=== PATIENT | female | born 1955 | race Caucasian/White ===

== ENCOUNTER 2017-12-04 12:19 | Inpatient (IN) | payer BC ==
[2017-12-04 13:00] LABS: Protime INR 1.25
[2017-12-04 13:02] LABS: Absolute Lymphocytes (CBC) 0.6 K/uL (0.7-4.9); Absolute Monocytes 0.1 K/uL (0.1-1.3); Absolute Neutrophil 0.9 K/uL (1.8-8.0); Basophils % 2.1 % (0-1.3); Eosinophils % 0.8 % (0-4.4); Hematocrit 14.1 % (36.0-45.0); Lymphocytes % 39.9 % (15.3-44.8); MCH 30.4 pg (27.0-35.0); MCV 86.1 fL (80-100); Monocytes % 4.2 % (3.3-12.3); RBC Red Blood Cell Count 1.64 M/uL (3.86-4.86)
[2017-12-04 13:19] LABS: ALT/SGPT 25 U/L (12-78); AST/SGOT 25 U/L (15-37); Albumin 3.6 g/dL (3.4-5.0); Alkaline Phosphatase 608 U/L (45-117); BUN Blood Urea Nitrogen 20 mg/dL (7-18); Bicarbonate 22 mmol/L (21-32); Bilirubin Total 3.7 mg/dL (0.2-1.0); Glucose Level 130 mg/dL (74-106); Magnesium 2.2 mg/dL (1.8-2.4); NT PRO-BNP 97 pg/mL (<125); Potassium 4.1 mmol/L (3.5-5.1); Protein, Total 7.1 g/dL (6.4-8.2); Sodium Level 141 mmol/L (136-145); Troponin (Emerg Dept Use Only) < 0.02 ng/mL (0.0-0.045)
[2017-12-04 14:00] LABS: Anisocytosis 1+; Blood Morphology Comment NOTED (NOT SEEN); Platelet Estimate DECR
[2017-12-04] MEDS ORDERED: CEFEPIME/SWI 2gm 2 GM/20 ML SYR IV ONE (14:00)
[2017-12-04 14:01] LABS: Polychromasia 1+; Teardrop Cell 1+
--- NOTE | 2017-12-04 14:01 | EDPHYS ---
Physician Documentation [facility] Name: Esther Nichole Age: 62 yrs Sex: Female : 1955 Arrival Date: 12/04/2017 Time: 12:16 Bed 4 Private MD: ED Physician Peyman Yates HPI: 12/04 13:39 This 62 yrs old Female presents to ER via EMS with complaints of Syncope. kaykay 13:39 The patient has experienced near-syncope, almost passed out, felt faint, felt generally kaykay weak. Onset: The symptoms/episode began/occurred just prior to arrival. Context: the episode(s) was witnessed, by family, occurred at home, occurred while the patient was standing. Associated injury: The patient did not suffer any apparent associated injury. Associated signs and symptoms: Pertinent positives: lightheadedness. The patient has experienced similar episodes in the past, a few times. Historical: - Allergies: 12:22 No Known Allergies; sv - Home Meds: 12:22 letrozole 2.5 mg oral tab 1 tab once daily [Active]; morphine ER [Active]; sv Hydrocodone-Acetaminophen Oral [Active]; Zofran Oral [Active]; Metoclopramide Oral [Active]; lorazepam 1 mg Oral tab [Active]; Ibrance 125 mg oral cap 1 cap once daily [Active]; Senexon 8.6 mg oral tab 2 tabs once daily [Active]; venlafaxine 37.5 mg oral tab [Active]; - PMHx: 12:22 St 4 metastatic right breast cancer; Neurofibromatosis; sv - PSHx: 12:22 Right mastectomy; Cholecystectomy; esophageal; sv - Immunization history:: Adult Immunizations up to date. - Social history:: Smoking status: Patient/guardian denies using tobacco. - Ebola Screening: : No symptoms or risks identified at this time. - Family history:: not pertinent. ROS: 13:39 Constitutional: Negative for fever, chills, and weight loss, ENT: Negative for injury, kaykay pain, and discharge, Neck: Negative for injury, pain, and swelling, Cardiovascular: Negative for chest pain, palpitations, and edema, Respiratory: Negative for shortness of breath, cough, wheezing, and pleuritic chest pain, Abdomen/GI: Negative for abdominal pain, nausea, vomiting, diarrhea, and constipation, Back: Negative for injury and pain, : Negative for injury, bleeding, discharge, and swelling, MS/Extremity: Negative for injury and deformity, Neuro: Negative for headache, weakness, numbness, tingling, and seizure, Psych: Negative for depression, anxiety, suicide ideation, homicidal ideation, and hallucinations, Allergy/Immunology: Negative for hives, rash, and allergies, Endocrine: Negative for neck swelling, polydipsia, polyuria, polyphagia, and marked weight changes, Hematologic/Lymphatic: Negative for swollen nodes, abnormal bleeding, and unusual bruising. 13:39 Eyes: Positive for sunken appearance. 13:39 Skin: Positive for pallor. Exam: 13:39 Constitutional: This is a well developed, well nourished patient who is awake, alert, kaykay and in no acute distress. Head/Face: Normocephalic, atraumatic. ENT: Nares patent. No nasal discharge, no septal abnormalities noted. Tympanic membranes are normal and external auditory canals are clear. Oropharynx with no redness, swelling, or masses, exudates, or evidence of obstruction, uvula midline. Mucous membranes moist. Neck: Trachea midline, no thyromegaly or masses palpated, and no cervical lymphadenopathy. Supple, full range of motion without nuchal rigidity, or vertebral point tenderness. No Meningismus. Chest/axilla: Normal chest wall appearance and motion. Nontender with no deformity. No lesions are appreciated. Cardiovascular: Regular rate and rhythm with a normal S1 and S2. No gallops, murmurs, or rubs. Normal PMI, no JVD. No pulse deficits. Respiratory: Lungs have equal breath sounds bilaterally, clear to auscultation and percussion. No rales, rhonchi or wheezes noted. No increased work of breathing, no retractions or nasal flaring. Abdomen/GI: Soft, non-tender, with normal bowel sounds. No distension or tympany. No guarding or rebound. No evidence of tenderness throughout. Back: No spinal tenderness. No costovertebral tenderness. Full range of motion. Female : Normal external genitalia. MS/ Extremity: Pulses equal, no cyanosis. Neurovascular intact. Full, normal range of motion. Neuro: Awake and alert, GCS 15, oriented to person, place, time, and situation. Cranial nerves II-XII grossly intact. Motor strength 5/5 in all extremities. Sensory grossly intact. Cerebellar exam normal. Normal gait. Psych: Awake, alert, with orientation to person, place and time. Behavior, mood, and affect are within normal limits. 13:39 Eyes: Conjunctiva: pale, bilaterally. 13:39 Skin: Appearance: Color: pale, Temperature: normal temperature, Moisture: normal moisture, petechiae, not noted, ecchymosis, not noted, flushing, not noted. 13:46 Abdomen/GI: Inspection: abdomen appears normal, Bowel sounds: normal, Palpation: [facility] abdomen is soft and non-tender, Rectal exam: is unremarkable, rectal tone normal, Stool: guaiac negative, hemorrhoid(s), are not appreciated, mass, is not appreciated, swelling, is not appreciated, tenderness, is not appreciated, fecal impaction, is not appreciated. Vital Signs: 12:22 BP 131 / 71; Pulse 78; Resp 16; Temp 97; Pulse Ox 99% ; Weight 79.38 kg; Height 5 ft. 3 sv in. (160.02 cm); Pain 0/10; 13:04 BP 116 / 73; Pulse 72; Resp 16; Pulse Ox 100% on R/A; sv 13:58 BP 129 / 79; Pulse 76; Resp 20; Pulse Ox 100% ; sv 15:05 BP 125 / 80; Pulse 79; Resp 22; Pulse Ox 10% ; sv 15:52 BP 128 / 80; Pulse 79; Resp 19; Pulse Ox 100% ; sv 16:44 BP 128 / 84; Pulse 80; Resp 18; Temp 98.4(O); Pulse Ox 100% ; Pain 0/10; em1 17:21 BP 129 / 83; Pulse 82; Resp 18; Pulse Ox 100% ; sv 12:22 Body Mass Index 31.00 (79.38 kg, 160.02 cm) sv MDM: 12:42 Patient medically screened. [facility] 13:46 Data reviewed: vital signs, nurses notes, lab test result(s), EKG, radiologic studies, [facility] scan, plain films. 12/04 12:26 Order name: Basic Metabolic Panel; Complete Time: 13:37 sv 12/04 12:26 Order name: CBC with Diff; Complete Time: 15:40 12/04 12:26 Order name: LFT's; Complete Time: 13:37 sv 12/04 12:26 Order name: Magnesium; Complete Time: 13:37 sv 12/04 12:26 Order name: NT PRO-BNP; Complete Time: 13:37 sv 12/04 12:26 Order name: PT-INR; Complete Time: 13:37 sv 12/04 12:26 Order name: Troponin (emerg Dept Use Only); Complete Time: 13:37 sv 12/04 12:41 Order name: Type And Screen sv 12/04 12:44 Order name: Glucose, Ancillary Testing; Complete Time: 13:37 EDMO 12/04 13:16 Order name: ABO/RH no charge; Complete Time: 13:37 EDMO 12/04 13:36 Order name: Blood Culture Adult (2) [facility] 12/04 13:36 Order name: Lipase kaykay 12/04 13:36 Order name: Blood Culture EDMO 12/04 12:26 Order name: XRAY Chest (1 view) 12/04 12:26 Order name: EKG; Complete Time: 12:27 sv 12/04 12:26 Order name: Cardiac monitoring; Complete Time: 12:58 sv 12/04 12:26 Order name: EKG - Nurse/Tech; Complete Time: 12:58 sv 12/04 12:26 Order name: IV Saline Lock; Complete Time: 12:57 sv 12/04 12:26 Order name: Labs collected and sent; Complete Time: 12:58 sv 12/04 12:26 Order name: O2 Per Protocol; Complete Time: 12:58 sv 12/04 12:26 Order name: O2 Sat Monitoring; Complete Time: 12:58 sv 12/04 12:26 Order name: CT Head Brain wo Cont 12/04 13:39 Order name: Antibody Identification EDMO 12/04 13:48 Order name: Guiac eb 12/04 14:00 Order name: Manual Differential; Complete Time: 15:40 EDMO 12/04 14:04 Order name: CONS Physician Consult EDMO Administered Medications: 14:17 Drug: ProTONIX 40 mg Route: IVP; Site: left antecubital; sv 14:24 Follow up: Response: No adverse reaction sv 14:19 Drug: Cefepime 2 grams Route: IVPB; Rate: 200 ml/hr; Infused Over: 30 mins; Site: left sv antecubital; 14:24 Follow up: Response: No adverse reaction; IV Status: Completed infusion; IV Intake: sv 20ml ; given IVP per pharmacy instructions Point of Care Testing: Blood Glucose: 12:40 Blood Glucose: 139 mg/dL; sv Guaiac: 13:57 Stool Guaiac: Negative; Stool Hemoccult Control: Pass; sv 13:[address] Milan norris Ranges: Critical Glucose Levels:Adult <50 mg/dl or >400 mg/dl <40 mg/dl or >180 mg/dl Disposition: 12/04/17 14:01 Hospitalization ordered by Roosevelt Flaherty for Inpatient Admission. Preliminary diagnosis are Syncope and collapse, Pancytopenia. - Bed requested for Telemetry/MedSurg (Inpatient). - Status is Inpatient Admission. sv - Condition is Stable. - Problem is new. - Symptoms have improved. UTI on Admission? No Signatures: Dispatcher [employer] [facility] Halle Pineda RN RN sv Anderson, Corey, MD MD cha Fitzgerald, Diane, RN RN df Corrections: (The following items were deleted from the chart) 14:00 13:10 CBC Smear Scan ordered. [facility] 16:52 14:01 Hospitalization Ordered by Roosevelt Flaherty DO for Inpatient Admission. Preliminary df diagnosis is Syncope and collapse; Pancytopenia. Bed requested for Telemetry/MedSurg (Inpatient). Status is Inpatient Admission. Condition is Stable. Problem is new. Symptoms have improved. UTI on Admission? No. [facility] 17:21 16:52 12/04/2017 14:01 Hospitalization Ordered by Roosevelt Flaherty DO for Inpatient sv Admission. Preliminary diagnosis is Syncope and collapse; Pancytopenia. Bed requested for Telemetry/MedSurg (Inpatient). Status is Inpatient Admission. Condition is Stable. Problem is new. Symptoms have improved. UTI on Admission? No. df
--- NOTE | 2017-12-04 14:01 | ER ---
Nurse's Notes [facility] Name: Esther Nichole Age: 62 yrs Sex: Female : 1955 Arrival Date: 12/04/2017 Time: 12:16 Bed 4 Private MD: Diagnosis: Syncope and collapse;Pancytopenia Presentation: 12/04 12:09 Presenting complaint: EMS states: syncopal episode while going back to bed, on site was sv c/o right shoulder pain. + LOC. Pt was pale and diaphoretic on scene, SBP 80s, placed in Trendelenburg, NS 400 mls bolus given, 100% RA, HR-60. 22G L AC. Pt stopped chemotherapy for St 4 metastatic right breast cancer yesterday and had recently received 2 units of blood at [facility]. Transition of care: patient was not received from another setting of care. Onset of symptoms was December 04, 2017. Risk Assessment: Do you want to hurt yourself or someone else? Patient reports no desire to harm self or others. Initial Sepsis Screen: Does the patient meet any 2 criteria? No. Patient's initial sepsis screen is negative. Does the patient have a suspected source of infection? No. Patient's initial sepsis screen is negative. Care prior to arrival: IV initiated. 22 GA, in the left antecubital area. 12:09 Method Of Arrival: EMS: [facility] sv 12:09 Acuity: KAMILAH 2 sv Triage Assessment: 12:10 General: Appears in no apparent distress. comfortable, Behavior is calm, cooperative, sv appropriate for age. Pain: Denies pain. EENT: No signs and/or symptoms were reported regarding the EENT system. Neuro: Level of Consciousness is awake, alert, obeys commands, Oriented to person, place, time, situation, Moves all extremities. Full function Speech is normal, Reports a syncopal episode. Cardiovascular: Patient's skin is warm and dry. Pulses are 3+ in right radial artery and left radial artery Rhythm is sinus rhythm. Respiratory: Respiratory effort is even, unlabored, Respiratory pattern is regular, symmetrical. Derm: Skin is pale, Skin temperature is cool. Historical: - Allergies: 12:22 No Known Allergies; sv - Home Meds: 12:22 letrozole 2.5 mg oral tab 1 tab once daily [Active]; morphine ER [Active]; sv Hydrocodone-Acetaminophen Oral [Active]; Zofran Oral [Active]; Metoclopramide Oral [Active]; lorazepam 1 mg Oral tab [Active]; Ibrance 125 mg oral cap 1 cap once daily [Active]; Senexon 8.6 mg oral tab 2 tabs once daily [Active]; venlafaxine 37.5 mg oral tab [Active]; - PMHx: 12:22 St 4 metastatic right breast cancer; Neurofibromatosis; sv - PSHx: 12:22 Right mastectomy; Cholecystectomy; esophageal; sv - Immunization history:: Adult Immunizations up to date. - Social history:: Smoking status: Patient/guardian denies using tobacco. - Ebola Screening: : No symptoms or risks identified at this time. - Family history:: not pertinent. Screenin:24 Abuse screen: Denies threats or abuse. Denies injuries from another. Nutritional sv screening: No deficits noted. Tuberculosis screening: No symptoms or risk factors identified. Fall Risk No fall in past 12 months (0 pts). No secondary diagnosis (0 pts). IV access (20 points). Ambulatory Aid- None/Bed Rest/Nurse Assist (0 pts). Gait- Normal/Bed Rest/Wheelchair (0 pts) Mental Status- Oriented to own ability (0 pts). Total Liz[place]aga Fall Scale indicates No Risk (0-24 pts). Assessment: 12:56 Reassessment: Patient appears in no apparent distress at this time. No changes from sv previously documented assessment. Patient and/or family updated on plan of care and expected duration. Pain level reassessed. 14:17 Reassessment: Patient appears in no apparent distress at this time. No changes from sv previously documented assessment. Patient and/or family updated on plan of care and expected duration. Pain level reassessed. 15:49 Reassessment: Patient appears in no apparent distress at this time. No changes from sv previously documented assessment. Patient and/or family updated on plan of care and expected duration. Pain level reassessed. Blood band working on PRBCs for the patient. 17:10 Reassessment: Patient appears in no apparent distress at this time. No changes from sv previously documented assessment. Patient and/or family updated on plan of care and expected duration. Pain level reassessed. Vital Signs: 12:22 BP 131 / 71; Pulse 78; Resp 16; Temp 97; Pulse Ox 99% ; Weight 79.38 kg; Height 5 ft. 3 sv in. (160.02 cm); Pain 0/10; 13:04 BP 116 / 73; Pulse 72; Resp 16; Pulse Ox 100% on R/A; sv 13:58 BP 129 / 79; Pulse 76; Resp 20; Pulse Ox 100% ; sv 15:05 BP 125 / 80; Pulse 79; Resp 22; Pulse Ox 10% ; sv 15:52 BP 128 / 80; Pulse 79; Resp 19; Pulse Ox 100% ; sv 16:44 BP 128 / 84; Pulse 80; Resp 18; Temp 98.4(O); Pulse Ox 100% ; Pain 0/10; em1 17:21 BP 129 / 83; Pulse 82; Resp 18; Pulse Ox 100% ; sv 12:22 Body Mass Index 31.00 (79.38 kg, 160.02 cm) sv ED Course: 12:09 Maintain EMS IV. Dressing intact. Gauge \T\ site: 22G L AC. sv 12:10 Patient has correct armband on for positive identification. Placed in gown. Bed in low sv position. Side rails up X2. vehicle monitor technician on. Pulse ox on. NIBP on. Door closed. Warm blanket given. Head of bed elevated. 12:16 Patient arrived in ED. sv 12:19 Triage completed. sv 12:25 Halle Pineda, RN is Primary Nurse. sv 12:40 Initial lab(s) drawn, by ar, sent to lab. Inserted saline lock: 20 gauge in left upper sv arm, using aseptic technique. Blood collected. Flushed left with 5 ml normal saline upper arm. 12:42 Peyman Yates MD is Attending Physician. kaykay 12:45 Arm band placed on left wrist. sv 12:46 CT completed. Patient tolerated procedure well. Patient moved back from CT. [email or web address] 12:47 CT Head Brain wo Cont In Process Unspecified. EDMS 12:57 Awaiting lab results, Awaiting radiology results. Awaiting ED provider evaluation. sv 13:12 XRAY Chest (1 view) In Process Unspecified. EDMS 13:15 Notified ED physician of a critical lab result(s). WBC 1.6, Hbg 5, Hematocrit 14.1, Plt sg 47. 13:40 attempted to initiate a transfer with Corina from the [place] transfer center. Per Corina she will eb email her oncology team but that the hospital is on diversion and will not know when a bed will become available/. 13:57 Blood Culture Adult (2) Sent. sv 13:57 Consent for blood and/or blood product transfusion explained by staff, explained by physician, signed by patient. 14:00 Roosevelt Flaherty DO is Hospitalizing Provider. kaykay 17:12 No provider procedures requiring assistance completed. Patient admitted, IV remains in sv place. intact. Administered Medications: 14:17 Drug: ProTONIX 40 mg Route: IVP; Site: left antecubital; sv 14:24 Follow up: Response: No adverse reaction sv 14:19 Drug: Cefepime 2 grams Route: IVPB; Rate: 200 ml/hr; Infused Over: 30 mins; Site: left sv antecubital; 14:24 Follow up: Response: No adverse reaction; IV Status: Completed infusion; IV Intake: sv 20ml ; given IVP per pharmacy instructions Point of Care Testing: Blood Glucose: 12:40 Blood Glucose: 139 mg/dL; sv Guaiac: 13:57 Stool Guaiac: Negative; Stool Hemoccult Control: Pass; sv 13:[address] Yates sv Ranges: Intake: 14:24 IV: 20ml; Total: 20ml. sv Outcome: 14:01 Decision to Hospitalize by Provider. kaykay 17:12 Admitted to Tele accompanied by tech, family with patient, via stretcher, room 414, sv with chart, Report called to Yulia PEREZ 17:12 Condition: stable 17:12 Instructed on the need for admit. 17:21 Patient left the ED. sv Signatures: Dispatcher [employer] Halle Bills, Arun Choudhury RN, Peyman Perez RN, MD MD cha Martinez, Brent em1 Aide Antonio, Jes [id number] Corrections: (The following items were deleted from the chart) 12:23 12:09 Presenting complaint: EMS states: syncopal episode while going back to bed. + sv LOC. Pt was pale and diaphoretic on scene, SBP 80s, placed in Trendelenburg, NS 400 mls bolus given, 100% RA, HR-60. 22G L AC. Pt stopped chemotherapy for St 4 metastatic right breast cancer yesterday. sv 13:21 12:09 Maintain EMS IV. Dressing intact. Gauge \T\ site: 20G L AC. sv sv
[2017-12-04] MEDS ORDERED: PANTOPRAZOLE 40 MG INJ ONE (14:02)
[2017-12-04] MEDS ORDERED: ACETAMINOPHEN 500 MG TAB PO PRN (14:27)
[2017-12-04] MEDS ORDERED: HYDROCODONE/APAP 10/325 TAB PO PRN (14:27)
--- NOTE | 2017-12-04 14:40 | P.HP ---
Certification for Inpatient Patient admitted to: Inpatient With expected LOS: >2 Midnights Patient will require the following post-hospital care: None Practitioner: I am a practitioner with admitting privileges, knowledge of patient current condition, hospital course, and medical plan of care. Services: Services provided to patient in accordance with Admission requirements found in Title 42 Section 412.3 of the Code of Federal Regulations Patient History Date of Service: 12/04/17 Primary Care Provider: None; Oncology-Dr. Juarez([facility]) Reason for admission: Syncope History of Present Illness: 62 yo CF presented to the ER with Syncope. Patient presented with syncope. She was found to have low BP with 80 sys. She has stage 4 recurrent breast cancer with mets to the spine, lung, abdomen and skull. She also has Neurofibromatosis. She is getting her care at [facility]. She recently started oral chemotherapy about 3 weeks ago. She just finished oral therapy on Wednesday. Last week, she required 2 units of blood at [facility]. She denies any bleeding or fever. No chest pain, SOB, abdominal pain. She is taking medication for pain and anxiety. In the ER she was found to have pancytopenia. Hemoglobin of 5.0, WBC-1.9 and Platelet of 47. BMP unremarkable. TB-3.7. The ER tried to transfer the patient to [facility] with her physician but they were full. I was asked to admit and treat the patient. When I saw the patient in the ER she was stable. Her BP was much improved after a bolus of fluid. No complaints noted. 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 She is . - Family History Father -: Cancer Brother -: Cancer - Social History Smoking Status: Never smoker Alcohol use: No CD- Drugs: No Caffeine use: Yes Place of Residence: Home Review of Systems General: Weakness, As per HPI Eyes: Unremarkable ENT: Unremarkable Respiratory: Unremarkable Cardiovascular: Light Headedness, As per HPI Gastrointestinal: Unremarkable Genitourinary: Unremarkable Musculoskeletal: Unremarkable Integumentary: Unremarkable Neurological: Unremarkable Lymphatics: Unremarkable Physical Examination - Physical Exam General: Alert, In no apparent distress, Oriented x3, Cooperative HEENT: Atraumatic, Other (dry mucous membranes) Neck: Supple, No Thyromegaly, Other (Neurofibromatosis changes to the skin and neck) Respiratory: Clear to auscultation bilaterally, Normal air movement Cardiovascular: Normal pulses, Regular rate/rhythm Gastrointestinal: Normal bowel sounds, Soft and benign, No tenderness, No masses , No rebound Musculoskeletal: No warmth Integumentary: Other (Neurofibromatosis changes to the body. right breast mastectomy noted. ) Neurological: Normal speech, Normal strength at 5/5 x4 extr, Normal tone, Normal affect - Studies Laboratory Data (last 24 hrs) 12/04/17 12:40: PT 14.8 H, INR 1.25 12/04/17 12:40: WBC 1.6 L*, Hgb 5.0 L*, Hct 14.1 L*, Plt Count 47 L* 12/04/17 12:40: Sodium 141, Potassium 4.1, BUN 20 H, Creatinine 0.70, Glucose 130 H, Magnesium 2.2, Total Bilirubin 3.7 H, AST 25, ALT 25, Alkaline Phosphatase 608 H Assessment and Plan - Plan Impression: Syncope secondary to Pancytopenia related to Oral Chemotherapy Stage 4 recurrent Breast Cancer with Metastasis to the Skull, Lung, Abdomen, and Spine Chronic pain secondary to Breast cancer Anxiety Plan: Spoke to Oncology concerning the patient. Will need to transfuse the patient 2 units of blood. Will keep Hemoglobin above 7.0. Will start Granix daily. Will recheck lab tomorrow. Will have PT assess ambulation tomorrow. No need for platelet transfusion or antibiotics at this time. No bleeding or fever noted. Will monitor lab and condition closely. Will keep at bedrest today. Will reassess tomorrow. Plan to discharge once H/H stable and WBC improved. Will discuss with Oncology tomorrow. Will continue to HOLD Ibrance, her oral chemotherapy. Will provide medication for pain, anxiety and nausea. Discharge Plan: Home Plan to discharge in: 48 Hours - Advance Directives Does patient have a Living Will: No Does patient have a Durable POA for Healthcare: No - Code Status/Comfort Care Code Status Assessed: Yes (Patient is full code. ) Time Spent Managing Pts Care (In Minutes): 55
[2017-12-04] MEDS: NA CHLORIDE 0.9% 1,000 ML IV SCH (15:00)
[2017-12-04] MEDS: TBO-FILGRASTIM 480 MCG/0.8 ML SYR SQ SCH (16:15)
[2017-12-04] MEDS: METOCLOPRAMIDE 10 MG/2mL INJ IV PRN (20:42)
[2017-12-04] MEDS: MORPHINE 15 MG IR TAB PO SCH (20:43)
[2017-12-04] MEDS: LORAZEPAM 0.5 MG TABLET PO PRN (20:45)
[2017-12-04] MEDS: VENLAFAXINE HCL 37.5 MG TAB PO SCH (21:00)
[2017-12-05] MEDS: MORPHINE 15 MG IR TAB PO SCH ×3 (00:02→22:21)
[2017-12-05] MEDS ORDERED: FUROSEMIDE 40 MG/4 ML VIAL IV ONE ×2 (01:25→05:05)
[2017-12-05] MEDS: ONDANSETRON 4 MG/2 ML VIAL IV PRN ×2 (02:28→16:27)
[2017-12-05] MEDS: PANTOPRAZOLE 40MG TABLET PO SCH (06:05)
--- NOTE | 2017-12-05 08:32 | RAD REPORT ---
EXAM DESCRIPTION: RAD - Chest Single View - 12/04/2017 11:29 pm CLINICAL HISTORY: Fall The final report was delayed due to PACs and/or Fluency technical problems that existed at the time of the study or during expected/usual dictation time period. It is unknown if a verbal report was pro vided prior to this dictation. COMPARISON: None. TECHNIQUE: AP portable chest image was obtained 1303 hours . FINDINGS: Lung volumes are slightly diminished. Right base opacification is present obscuring the ri ght heart border. No comparison is available. Right middle lobe atelectasis or infiltrate suspected. No additional findings to suspect right hilar mass. This could be a prominent pericardial fat pad. No failure or volume overload. Heart and vasculature are normal. No measurable pleural effusion and no pneumothorax. No gross bony abnormality seen. No acute aortic findings suspected. IMPRESSION: No failure or volume overload. No traumatic injury to the chest identified. Medial right base opacification suspected to be right middle lobe atelectasis or infiltrate. Followup two view imaging could be obtained for further assessment. A short-term 3- 4 week follow-up could be also obtained to monitor for resolution.
[2017-12-05 08:35] LABS: Magnesium 2.2 mg/dL (1.8-2.4); Potassium 3.9 mmol/L (3.5-5.1)
[2017-12-05 08:49] LABS: Hematocrit 24.3 % (36.0-45.0); MCH 28.6 pg (27.0-35.0); MCV 80.2 fL (80-100); MPV 8.7 fL (7.6-11.3); RBC Red Blood Cell Count 3.03 M/uL (3.86-4.86)
[2017-12-05] MEDS: VENLAFAXINE HCL 37.5 MG TAB PO SCH ×2 (09:00→22:20)
--- NOTE | 2017-12-05 09:27 | RAD REPORT ---
EXAM DESCRIPTION: CT - Head Brain Wo Cont - 12/04/2017 11:29 pm CLINICAL HISTORY: Syncope COMPARISON: None. TECHNIQUE: Computed axial tomography of the head was obtained. IV contrast was not requested. Due to hospital technical malfunction a report could not be dictated yesterday. Preliminary report by me lopez s given to the emergency room after completion of this exam All CT scans are performed using dose optimization technique as appropriate and may include automated exposure control or mA/KV adjustment according to patient size. FINDINGS: An intracranial bleed is not seen . The ventricles are normal in caliber. No extra-axial fluid collection is noted. Coarse distal left vertebral calcifications are noted. Mild cerebral atrophy is seen Fluid within the sinuses/ mastoids is not seen. IMPRESSION: No acute intracranial abnormality is seen. If patient's symptoms persist MRI of the bra in would be recommended.
[2017-12-05 09:36] LABS: Platelet Estimate DECR
[2017-12-05 09:38] LABS: Anisocytosis 1+; Blood Morphology Comment NOTED (NOT SEEN); Teardrop Cell 1+
--- NOTE | 2017-12-05 09:55 | P.PN ---
Subjective Date of Service: 12/05/17 Primary Care Provider: None; Oncology-Dr. Juarez([facility]) Chief Complaint: Syncope Subjective: Other (Patient had mild nausea this morning.) Physical Examination - Vital Signs Temperature: 97.7 F Blood Pressure: 152/84 Pulse: 80 Respirations: 18 Pulse Ox (%): 99 - Physical Exam General: Alert, In no apparent distress, Oriented x3, Cooperative HEENT: Atraumatic Neck: Supple Respiratory: Clear to auscultation bilaterally, Normal air movement Cardiovascular: Normal pulses, Regular rate/rhythm Gastrointestinal: Normal bowel sounds, Soft and benign, Non-distended, No masses , No rebound, No guarding Neurological: Normal speech, Normal strength at 5/5 x4 extr, Normal tone - Studies Laboratory Data (last 24 hrs) 12/04/17 12:40: Lipase 127 12/04/17 12:40: PT 14.8 H, INR 1.25 12/04/17 12:40: WBC 1.6 L*, Hgb 5.0 L*, Hct 14.1 L*, Plt Count 47 L* 12/04/17 12:40: Sodium 141, Potassium 4.1, BUN 20 H, Creatinine 0.70, Glucose 130 H, Magnesium 2.2, Total Bilirubin 3.7 H, AST 25, ALT 25, Alkaline Phosphatase 608 H Medications List Reviewed: Yes Assessment & Plan Discharge Plan: Home Plan to discharge in: 24 Hours Physician Review Additional Text: Impression: Syncope secondary to Pancytopenia related to Oral Chemotherapy Stage 4 recurrent Breast Cancer with Metastasis to the Skull, Lung, Abdomen, and Spine Chronic pain secondary to Breast cancer Anxiety Plan: Syncope secondary to Pancytopenia related to Oral Chemotherapy: Patient received 2 units of packed red blood cells. Hemoglobin improved to 8.7. White count 1.3, platelet count 40. Patient received Granix. Case discussed with oncology yesterday. Will ambulate patient. Will reassess this morning after breakfast. Patient had mild nausea. If improved later today then will consider discharge later. Patient will need a follow up with her oncologist at [facility] within the next day to closely monitor her CBC if discharged. Will recommend to continue to [id number] chemotherapy. Stage 4 recurrent Breast Cancer with Metastasis to the Skull, Lung, Abdomen, and Spine: Will recommend to hold Ibrance-oral chemotherapy as this likely caused her pancytopenia. This can be further addressed by her oncology as an outpatient. Chronic pain secondary to Breast cancer: Patient will continue with pain control medication. Anxiety: Patient will continue with anxiety medication Nausea/vomiting likely related to chemotherapy medication and stage IV breast cancer: Will reassess after lunchtime. If stable will discharge home. Patient has medication at home. Time Spent Managing Pts Care (In Minutes): 55
--- NOTE | 2017-12-05 10:01 | P.DS ---
Admission Date: 12/04/17 Discharge Date: 12/05/17 Primary Care Provider: None; Oncology-Dr. Juarez([facility]) Disposition: ROUTINE DISCHARGE Discharge Condition: GOOD Reason for Admission: Syncope Consultations: Oncology-Dr. Ansari Procedures: Medical Problem List: Syncope secondary to Pancytopenia related to Oral Chemotherapy Stage 4 recurrent Breast Cancer with Metastasis to the Skull, Lung, Abdomen, and Spine Chronic pain secondary to Breast cancer Neurofibromatosis Anxiety Right-sided atelectasis GERD Brief History of Present Illness: 62 yo CF presented to the ER with Syncope. Patient presented with syncope. She was found to have low BP with 80 sys. She has stage 4 recurrent breast cancer with mets to the spine, lung, abdomen and skull. She also has Neurofibromatosis. She is getting her care at [facility]. She recently started oral chemotherapy about 3 weeks ago. She just finished oral therapy on Wednesday. Last week, she required 2 units of blood at [facility]. She denies any bleeding or fever. No chest pain, SOB, abdominal pain. She is taking medication for pain and anxiety. In the ER she was found to have pancytopenia. Hemoglobin of 5.0, WBC-1.9 and Platelet of 47. BMP unremarkable. TB-3.7. The ER tried to transfer the patient to [facility] with her physician but they were full. I was asked to admit and treat the patient. When I saw the patient in the ER she was stable. Her BP was much improved after a bolus of fluid. No complaints noted. Hospital Course: Patient admitted for syncopal episode secondary to pancytopenia related to oral chemotherapy. Patient with history of stage IV recurrent breast cancer with metastasis to the school, lung, abdomen and spine. Patient found to have low blood pressure. Patient was given IV fluids in the emergency room. This improved. Patient was admitted for treatment. Patient given 2 units of packed red blood cells. This improved her CBC. At discharge hemoglobin 8.7, white count 1.3 and platelet count 40. Patient received Granix. Case discussed with oncology. Patient stable at discharge. Patient will follow up with her oncologist in the next 1-2 days. Recommendation to recheck lab-CBC in 1-2 days to monitor progress. Fall precautions is encouraged. Patient with stage IV recurrent breast cancer with metastasis to the school, lung, abdomen and spine. Recommendation to continue to hold Ibrance-oral chemotherapy as this likely caused her pancytopenia. Patient may continue with Femara 2.5 mg daily. This can be further addressed by her oncologist as an outpatient. Patient with neurofibromatosis. Patient follow up with oncology. Patient has chronic pain secondary to breast cancer. Patient will continue with her medication including morphine ER 15 mg 1 pill twice daily. Further adjustment can be done by her oncologist. Patient with anxiety. Patient will continue with her medication-Effexor 37.5 mg one pill daily and Ativan 1 mg at bedtime as needed. Patient had nausea and vomiting likely related to chemotherapy medication and stage IV breast cancer. She will continue with antiemetic therapy-Reglan or Zofran at home. Encourage hydration. Patient had atelectasis. Encourage incentive spirometer. This will be monitored as an outpatient. Recommendation to recheck chest x-ray in 1-2 weeks to monitor resolution. Patient likely has GERD. Will start Protonix 40 mg daily at discharge. Vital Signs/Physical Exam: Temp Pulse Resp BP Pulse Ox 97.7 F 80 18 152/84 H 99 12/05/17 09:59 12/05/17 09:59 12/05/17 09:59 12/05/17 09:59 12/05/17 09:59 General: Alert, In no apparent distress, Oriented x3, Cooperative HEENT: Atraumatic Neck: Supple Respiratory: Clear to auscultation bilaterally, Normal air movement Cardiovascular: Normal pulses, Regular rate/rhythm Gastrointestinal: Normal bowel sounds, Soft and benign, Non-distended, No masses , No rebound, No guarding Musculoskeletal: No erythema, No tenderness, No warmth Integumentary: No tenderness/swelling, No erythema, No warmth, No cyanosis Neurological: Normal speech, Normal strength at 5/5 x4 extr, Normal tone, Normal affect Laboratory Data at Discharge: WBC 1.3 K/uL (4.3-10.9) L* D 12/05/17 07:37 Hgb 8.7 g/dL (12.0-15.0) L D 12/05/17 07:37 Hct 24.3 % (36.0-45.0) L D 12/05/17 07:37 Plt Count 40 K/uL (152-406) L* 12/05/17 07:37 PT 14.8 SECONDS (9.5-12.5) H 12/04/17 12:40 INR 1.25 12/04/17 12:40 Sodium 141 mmol/L (136-145) 12/05/17 07:37 Potassium 3.9 mmol/L (3.5-5.1) 12/05/17 07:37 BUN 31 mg/dL (7-18) H 12/05/17 07:37 Creatinine 0.90 mg/dL (0.55-1.3) 12/05/17 07:37 Glucose 138 mg/dL (74-106) H 12/05/17 07:37 Magnesium 2.2 mg/dL (1.8-2.4) 12/05/17 07:37 Total Bilirubin 3.7 mg/dL (0.2-1.0) H 12/04/17 12:40 AST 25 U/L (15-37) 12/04/17 12:40 ALT 25 U/L (12-78) 12/04/17 12:40 Alkaline Phosphatase 608 U/L (45-117) H 12/04/17 12:40 Lipase 127 U/L (73-393) 12/04/17 12:40 Home Medications: Hydrocodone Bit/Acetaminophen [Flint 10-325 Tablet] 1 each PO Q4H 12/04/17 LORazepam [Ativan*] 1 mg PO BEDTIME PRN 12/04/17 Letrozole [Femara*] 2.5 mg PO DAILY 12/04/17 Metoclopramide HCl [Reglan] 10 mg PO Q4HP PRN 12/04/17 Morphine *Extended Release* [MS Contin*] 15 mg PO BID 12/04/17 Ondansetron HCl [Zofran] 8 mg PO Q8HP PRN 12/04/17 Sennosides/Docusate Sodium [Senexon-S Tablet] 2 each PO BID 12/04/17 Venlafaxine HCl [Effexor*] 37.5 mg PO DAILY 12/04/17 Pantoprazole [Protonix Tab] 40 mg PO DAILY #30 tab 12/05/17 New Medications: Pantoprazole [Protonix Tab] 40 mg PO DAILY #30 tab Patient Discharge Instructions: 1. Patient will need a follow up with Oncology in the next 1-2 days to follow up this hospitalization. Recommendation to establish care with a PCP to continue her care. 2. Patient admitted for syncopal episode secondary to pancytopenia related to oral chemotherapy. Patient with history of stage IV recurrent breast cancer with metastasis to the skull, lung, abdomen and spine. Patient found to have low blood pressure. Patient was given IV fluids in the emergency room. This improved and resolved. Patient was admitted for treatment. Patient given 2 units of packed red blood cells. This improved her CBC. At discharge hemoglobin 8.7, white count 1.3 and platelet count 40. Patient received Granix. Case discussed with oncology. Patient stable at discharge. Patient will follow up with her oncologist in the next 1-2 days. Recommendation to recheck lab-CBC in 1-2 days to monitor progress. Fall precautions is encouraged. 3. Patient with stage IV recurrent breast cancer with metastasis to the skull, lung, abdomen and spine. Recommendation to continue to hold Ibrance-oral chemotherapy as this likely caused her pancytopenia. Patient may continue with Femara 2.5 mg daily. This can be further addressed by her oncologist as an outpatient. 4. Patient with neurofibromatosis. Patient follow up with oncology. 5. Patient has chronic pain secondary to breast cancer. Patient will continue with her medication including morphine ER 15 mg 1 pill twice daily. Further adjustment can be done by her oncologist. 6. Patient with anxiety. Patient will continue with her medication-Effexor 37.5 mg one pill daily and Ativan 1 mg at bedtime as needed. 7. Patient had nausea and vomiting likely related to chemotherapy medication and stage IV breast cancer. She will continue with antiemetic therapy-Reglan or Zofran at home. Encourage hydration. 8. Patient had atelectasis. Encourage incentive spirometer. This will be monitored as an outpatient. Recommendation to recheck chest x-ray in 1-2 weeks to monitor resolution. 9. Patient may have GERD. Will start Protonix 40 mg 1 pill once daily. Diet: Regular Activity: Ad emmy Time spent managing pt's care (in minutes): 55
--- NOTE | 2017-12-05 12:29 | RAD REPORT ---
EXAM DESCRIPTION: RAD - Chest Pa And Lat (2 Views) - 12/05/2017 12:11 pm CLINICAL HISTORY: follow up atelectasis Chest pain. COMPARISON: Chest Single View dated 12/04/2017 FINDINGS: Linear opacities in the anterior right lung base appears mildly progressive since the comp arative study. The heart is mildly prominent size. No displaced fractures. IMPRESSION: Mild progression in the anterior right middle lobe opacity likely representing progressi on atelectasis or pneumonia.
[2017-12-05] MEDS ORDERED: CEFEPIME 2 GM VIAL IV SCH (13:46)
[2017-12-05 14:11] LABS: Absolute Lymphocytes (CBC) 0.2 K/uL (0.7-4.9); Absolute Neutrophil 1.3 K/uL (1.8-8.0); Basophils % 0.4 % (0-1.3); Eosinophils % 0.1 % (0-4.4); Hematocrit 24.4 % (36.0-45.0); Lymphocytes % 15.6 % (15.3-44.8); MCV 79.4 fL (80-100); MPV 8.5 fL (7.6-11.3); Monocytes % 3.1 % (3.3-12.3); RBC Red Blood Cell Count 3.08 M/uL (3.86-4.86)
[2017-12-05 14:38] LABS: RBC Red Blood Cell Count 2.98 M/uL (3.86-4.86)
[2017-12-05 15:06] LABS: C-Reactive Protein 62.8 mg/L (<3.00)
[2017-12-05 15:31] LABS: Urine Appearance CLEAR; Urine Blood 1+ (NEG); Urine Color ORANGE; Urine Glucose NEGATIVE (NEG); Urine Protein NEGATIVE (NEG); Urine pH 5.5 (5.0-7.0)
[2017-12-05 15:32] LABS: Folic Acid, (Folate) 4.6 ng/mL (3.1-17.5)
[2017-12-05 15:42] LABS: Urine Microscopic Reflex ORDER UMIC
[2017-12-05 15:55] LABS: Urine Bacteria <20 /HPF (<20); Urine Culture Reflex Order NOT NEEDED; Urine Mucus SLIGHT /HPF (NONE SEEN); Urine RBC <5 /HPF (NONE SEEN)
[2017-12-05 15:56] LABS: Urine Bilirubin POSITIVE (NEG)
[2017-12-05] MEDS: CEFEPIME/SWI 2gm 2 GM/20 ML SYR IV SCH (15:57)
[2017-12-05] MEDS: NA CHLORIDE 0.9% 1,000 ML IV SCH (15:58)
[2017-12-05] MEDS: TBO-FILGRASTIM 480 MCG/0.8 ML SYR SQ SCH (17:42)
[2017-12-05] MEDS ORDERED: CALCIUM CARBONATE CHEW 500MG TAB PO PRN (17:53)
[2017-12-05] MEDS: METOCLOPRAMIDE 10 MG/2mL INJ IV PRN (20:40)
--- NOTE | 2017-12-05 21:32 | CON ---
Date of Consultation: 12/05/2017 Consulting Physician: Roosevelt Flaherty DO Reason For Consultation: Pancytopenia, metastatic breast cancer. History Of Present Illness: Ms. Nichole presented to the emergency room yesterday with syncope. She says she was walking at home when she passed out. When she was brought to the emergency room, her blood pressure was low at 80 systolic and she was found to be severely pancytopenic. Her white count was 1600 with a platelet count of 47,000, hemoglobin was significantly reduced at 5.0gm/dl. She gives a history of metastatic breast cancer, which was diagnosed in September of 2017 when she presented with severe back and hip pain. She was diagnosed with metastases to the spine and hip bones along with lung nodules. She underwent palliative radiation to her spine and the hip for 10 fractions followed by systemic therapy with Ibrance plus letrozole which was started approximately 3 weeks ago. She developed severe shortness of breath and fatigue last week and a CBC at [facility] on 11/27/2017 revealed a white count of 1000 with a hemoglobin of 5.6gm/dl and a platelet count of 75,000. She was transfused 2 units of packed cells and felt great and was discharged home. She says her symptoms of fatigue and dizziness recurred a couple days prior to this admission. She denies any history of fever, chills, or night sweats. She generally stays cold according to her daughter. There is no history of runny nose or nasal discharge or bleeding. She has had a dry cough with minimally productive sputum. She has been chronically nauseated since before for recurrence of breast cancer. She takes Reglan and Zofran, which generally help with her nausea. There are no complains of abdominal pain, diarrhea, rectal bleeding or melena. Review of Systems: Otherwise unremarkable. Medications At Home: Include Reglan 10 mg b.i.d., Zofran 8 mg p.o. q.4 hours p.r.n. for nausea, Effexor XR 75 mg p.o. daily, Ativan 0.5 mg p.o. b.i.d. p.r.n. for anxiety, morphine sulfate extended-release 15 mg p.o. b.i.d., hydrocodone 10/325 q.4 hours p.r.n. for breakthrough pain. Allergies: SHE HAS NO KNOWN DRUG ALLERGIES. Past Medical History: Significant for: 1. Right breast cancer, initially diagnosed with early stage cancer and underwent a right mastectomy followed by systemic chemotherapy. This was followed by a pill. She is unsure about the details of and was treated in [place]. 2. Neurofibromatosis with resection of a couple of large neurofibromas. 3. Anxiety disorder. 4. Depression. Past Surgical History: Significant for the right mastectomy, hysterectomy, cholecystectomy, neurofibromatosis resected from the neck and from the esophagus. Social And Family History: She is a nonsmoker. Does not drink alcohol. There is no history of drug use. Family History: Significant for cancer on her father's side of the family. Multiple cousins were diagnosed with cancer, though her father himself from heart disease in his 40s. She had a brother who from a heart attack in his 40s as well. Her mother is alive and well at 92. She has 2 daughters who are in generally good health. Physical Examination: General: Ms. Nichole appears to be comfortable, though looks chronically ill. Vital Signs: Reveal that she has been afebrile. Temperature was 98.2 at noon today, pulse 86, respirations 18, blood pressure 136/81, saturating between 98% and 100% on room air. General physical examination reveals pallor. There is no cyanosis, clubbing or icterus. There appears to be no evidence of petechiae , bleeding or bruising. HEENT: Unremarkable for thrush, mucositis, or bleeding. Chest: Clear to auscultation. Heart: Sounds reveal normal S1, S2. No gallops or murmurs were heard. Abdomen: Soft and nontender. Liver and spleen were not palpable. There was no evidence of ascites. Bowel sounds were present. Neurologic: She is alert and oriented with no acute neuro deficits. There is evidence of small neurofibroma all over the body. Extremities: Show no edema. Lab Data: CBC this morning revealed a white count of 1300, hemoglobin 8.7, hematocrit 24.3, platelet count was 40,000. Chemistries revealed a BUN of 31, creatinine of 0.9 with mildly elevated glucose of 138. Liver function tests revealed a significantly elevated alkaline phosphatase of 6.8. Total bilirubin was 3.7. Direct bilirubin was 1.0. Chest x-ray on admission revealed some opacification of the right medial base suggestive of atelectasis in 1001 done today shows evidence of progression in the right anterior middle lobe suggestive of pneumonia or progressive atelectasis. Assessment And Plan: 1. Pancytopenia. Possible etiologies include adverse reactions due to Ibrance, infection and bone marrow involvement from her breast cancer. The patient has been afebrile, but given the current chest x-ray, I would resume the cefepime at 2 g IV q.12 hours till her cultures come back as negative. Continue with Granix 480 mcg subcu daily till her absolute neutrophil count is more than 2000. Suggest you ransfuse with platelets if the count is less than 10,000 or there is evidence of gross bleeding and the count is less than 50,000. 2. Anemia. This could be an adverse reaction to Ibrance. However, given the elevated indirect bilirubin, we will rule out hemolytic anemia. I will check for retic and LDH to rule out hemolysis and a sedimentation rate and CRP to rule out anemia of chronic disease. I would suggest we monitor her CBC at least twice a day. A significant decline in hemoglobin could be suggestive of blood loss or ongoing hemolysis. 3. Metastatic breast cancer. Ibrance is on hold. She continues on letrozole, which is reasonable. I suggested that they reschedule their appointment with Dr. Juarez to discuss further management of her breast cancer as well as to address the side-effect to eyegrounds. 4. Pain. Continue morphine sulfate extended-release 15 mg p.o. b.i.d. and hydrocodone 10/ 325 1 p.o. q.4 hours p.r.n. for pain. She seems comfortable from a pain standpoint on this regimen. 5. Nausea. This predates her recurrent breast cancer and the etiology is not clear to me. Continue with Reglan and Zofran as this currently, she may need an upper GI if her nausea worsens or persists. Thank you for asking me to see her. Please do not hesitate to call me if you have any questions. GREER Voice ID: [id number] Report ID: [id number] MICHELLE
[2017-12-05] MEDS: DOCUSATE NA/SENNA CONC 1 TAB PO SCH (22:21)
[2017-12-06 04:55] LABS: ALT/SGPT 43 U/L (12-78); AST/SGOT 52 U/L (15-37); Alkaline Phosphatase 554 U/L (45-117); BUN Blood Urea Nitrogen 29 mg/dL (7-18); Bicarbonate 22 mmol/L (21-32); Glucose Level 113 mg/dL (74-106); Potassium 3.4 mmol/L (3.5-5.1); Protein, Total 6.3 g/dL (6.4-8.2); Sodium Level 140 mmol/L (136-145)
[2017-12-06] MEDS: CEFEPIME/SWI 2gm 2 GM/20 ML SYR IV SCH ×2 (05:00→18:19)
[2017-12-06 05:03] LABS: Absolute Lymphocytes (CBC) 0.3 K/uL (0.7-4.9); Absolute Neutrophil 0.7 K/uL (1.8-8.0); Basophils % 1.4 % (0-1.3); Eosinophils % 0.5 % (0-4.4); Lymphocytes % 26.2 % (15.3-44.8); MCH 28.2 pg (27.0-35.0); MCV 79.4 fL (80-100); MPV 8.5 fL (7.6-11.3); Monocytes % 4.6 % (3.3-12.3); RBC Red Blood Cell Count 2.62 M/uL (3.86-4.86)
[2017-12-06 05:17] LABS: Bilirubin Total 7.5 mg/dL (0.2-1.0); Hematocrit 20.8 % (36.0-45.0)
[2017-12-06] MEDS: PANTOPRAZOLE 40MG TABLET PO SCH (05:50)
[2017-12-06] MEDS: METOCLOPRAMIDE 10 MG/2mL INJ IV PRN (05:57)
[2017-12-06] MEDS: NA CHLORIDE 0.9% 1,000 ML IV SCH (07:00)
--- NOTE | 2017-12-06 08:17 | EKG ---
Test Date: 2017-12-04 Test Time: 12:21:48 [employer] Protection Greeter: JOURDAN MEASUREMENT RESULTS: Intervals: Rate: 78 MN: QRSD: 76 QT: 422 QTc: 481 [place]: P: MN: QRS: 23 T: 34 INTERPRETIVE STATEMENTS: Sinus rhythm Prolonged QT Abnormal ECG No previous ECG available for comparison Electronically Signed On 12-06-17 08:17:11 CDT by James Niño
[2017-12-06] MEDS: VENLAFAXINE HCL 37.5 MG TAB PO SCH ×2 (09:00→20:59)
[2017-12-06] MEDS: MORPHINE 15 MG IR TAB PO SCH (10:08)
[2017-12-06] MEDS: DOCUSATE NA/SENNA CONC 1 TAB PO SCH ×2 (10:13→21:00)
--- NOTE | 2017-12-06 10:39 | P.PN ---
Subjective Date of Service: 12/06/17 Primary Care Provider: None; Oncology-Dr. Juarez( [place]) Chief Complaint: Syncope Subjective: Other (Patient appears well this morning. Mild nausea noted.) Physical Examination - Vital Signs Temperature: 98.3 F Blood Pressure: 112/60 Pulse: 76 Respirations: 18 Pulse Ox (%): 96 - Physical Exam General: Alert, In no apparent distress, Oriented x3, Cooperative HEENT: Atraumatic Neck: Supple Respiratory: Clear to auscultation bilaterally, Normal air movement Cardiovascular: Normal pulses, Regular rate/rhythm Gastrointestinal: Normal bowel sounds, Soft and benign, Non-distended, No tenderness, No masses, No rebound, No guarding Musculoskeletal: No erythema, No tenderness, No warmth Neurological: Normal speech, Normal strength at 5/5 x4 extr, Normal tone - Studies Microbiology Data (last 24 hrs): 12/04/17 13:48 Stool Occult Blood - Final Medications List Reviewed: Yes Assessment & Plan Plan to discharge in: 48 Hours Physician Review Additional Text: Impression: Syncope secondary to Pancytopenia related to Oral Chemotherapy Stage 4 recurrent Breast Cancer with Metastasis to the Skull, Lung, Abdomen, and Spine Nausea secondary to above Possible right middle lobe pneumonia versus atelectasis Chronic pain secondary to Breast cancer Anxiety Plan: Syncope secondary to Pancytopenia related to Oral Chemotherapy: Patient has received 2 units of packed red blood cells: Slight improvement noted. Patient no longer orthostatics. Patient received 2 units of packed red blood cells yesterday. Hemoglobin this morning at 7.4. White count 1.0, platelet count 30. Will recheck CBC at noontime. May need to transfuse if hemoglobin less than 7.0. Will continue with Granix for leukopenia. May need to transfuse if platelet count less than 10 or with bleeding. Case discussed at length with oncology. I did speak to [facility] for possible transfer. Unfortunately they are on diversion and not able to accommodate transfer. Will continue with current care. Will continue to [id number] chemotherapy. Discharge once CBC much improved and patient medically and hemodynamically stable. Possible right middle lobe pneumonia versus atelectasis: Due to her low WBC and current status, will continue with IV antibiotic therapy. Encourage incentive spirometer. Will recheck chest x-ray in the morning. Stage 4 recurrent Breast Cancer with Metastasis to the Skull, Lung, Abdomen, and Spine: Will recommend to hold Ibrance-oral chemotherapy as this likely caused her pancytopenia. Continue as above. Case discussed with oncology. Chronic pain secondary to Breast cancer: Patient will continue with pain control medication. Anxiety: Patient will continue with anxiety medication Nausea/vomiting likely related to chemotherapy medication and stage IV breast cancer: Continue with antiemetic therapy. I will turn the service over to Dr. Bowling tomorrow. I will go over the plan of care with him. Time Spent Managing Pts Care (In Minutes): 55
[2017-12-06 12:32] LABS: Absolute Lymphocytes (CBC) 0.3 K/uL (0.7-4.9); Absolute Monocytes 0.1 K/uL (0.1-1.3); Absolute Neutrophil 0.6 K/uL (1.8-8.0); Basophils % 2.9 % (0-1.3); Eosinophils % 0.8 % (0-4.4); Lymphocytes % 31.7 % (15.3-44.8); MCH 27.9 pg (27.0-35.0); MCV 78.8 fL (80-100); MPV 8.4 fL (7.6-11.3); Monocytes % 5.3 % (3.3-12.3); RBC Red Blood Cell Count 2.41 M/uL (3.86-4.86)
[2017-12-06 13:31] LABS: Anisocytosis 1+; Blood Morphology Comment NOTED (NOT SEEN); Platelet Estimate DECR; Urine White Blood Cell Casts OK
[2017-12-06] MEDS ORDERED: FUROSEMIDE 20 MG/ 2ML VIAL IV ONE (13:46)
[2017-12-06] MEDS: TBO-FILGRASTIM 480 MCG/0.8 ML SYR SQ SCH (17:00)
[2017-12-06] MEDS ORDERED: NA CHLORIDE 0.9% 250 ML ONE ×2 (20:39→23:33)
[2017-12-06] MEDS: ENSURE HIGH PROTEIN 237 ML CAN PO SCH (21:00)
[2017-12-06] MEDS: ONDANSETRON 4 MG/2 ML VIAL IV PRN (22:58)
[2017-12-07] MEDS: NA CHLORIDE 0.9% 1,000 ML IV SCH ×2 (02:06→21:07)
[2017-12-07] MEDS ORDERED: FUROSEMIDE 20 MG/ 2ML VIAL IV ONE (02:54)
[2017-12-07 05:00] LABS: BUN Blood Urea Nitrogen 17 mg/dL (7-18); Bicarbonate 26 mmol/L (21-32); Bilirubin Direct 2.8 mg/dL (0-0.2); Glucose Level 109 mg/dL (74-106); Potassium 3.2 mmol/L (3.5-5.1); Sodium Level 140 mmol/L (136-145)
[2017-12-07 05:58] LABS: Hematocrit 25.7 % (36.0-45.0); MCH 28.9 pg (27.0-35.0); MCV 80.1 fL (80-100); MPV 8.2 fL (7.6-11.3); RBC Red Blood Cell Count 3.21 M/uL (3.86-4.86)
[2017-12-07] MEDS: PANTOPRAZOLE 40MG TABLET PO SCH (06:19)
[2017-12-07] MEDS: CEFEPIME/SWI 2gm 2 GM/20 ML SYR IV SCH ×2 (06:19→17:11)
[2017-12-07 07:01] LABS: Anisocytosis 1+; Blood Morphology Comment NOTED (NOT SEEN); Platelet Estimate DECR; Teardrop Cell 2+
[2017-12-07] MEDS: ONDANSETRON 4 MG/2 ML VIAL IV PRN (08:54)
[2017-12-07] MEDS: DOCUSATE NA/SENNA CONC 1 TAB PO SCH ×2 (09:00→21:00)
[2017-12-07] MEDS: VENLAFAXINE HCL 37.5 MG TAB PO SCH ×2 (09:00→21:07)
[2017-12-07] MEDS: ENSURE HIGH PROTEIN 237 ML CAN PO SCH ×2 (09:03→21:00)
[2017-12-07] MEDS: METOCLOPRAMIDE 10 MG/2mL INJ IV PRN (12:10)
[2017-12-07 15:35] LABS: Albumin 3.2 g/dL (3.4-5.0); Bilirubin Direct 2.7 mg/dL (0-0.2); Bilirubin Total 4.4 mg/dL (0.2-1.0); Protein, Total 6.9 g/dL (6.4-8.2)
[2017-12-07] MEDS: TBO-FILGRASTIM 480 MCG/0.8 ML SYR SQ SCH (17:11)
[2017-12-07] MEDS: METOCLOPRAMIDE 10 MG/2mL INJ IV SCH ×2 (17:11→21:08)
--- NOTE | 2017-12-07 18:42 | PN ---
Date of Progress Note: 12/07/2017 Subjective: The patient seen and examined. Chart reviewed and case discussed with RN. The patient is still feeling nauseated, asking for her Reglan. Review of Systems: Negative except as above. Medications: List reviewed. Physical Examination: Vital Signs: Temperature 97.5, heart rate 67, blood pressure 125/70, respirations 18, O2 100% on nathalie m air. General: Awake, alert, oriented x3. Some mild distress, ill-appearing, obese female. CV: S1, S2. No murmurs. Regular rate and rhythm. Peripheral pulses present. Respiratory: Moving air well bilaterally. No wheezing or stridor. Gastrointestinal: Abdomen is soft. Mild tenderness to palpation. Nondistended. Positive bowel stephen nds. Extremities: No clubbing, cyanosis, or edema. Neuro: Nonfocal. Laboratory Data: Sodium 140, potassium 3.2, chloride 106, CO2 26, BUN 17, creatinine 0.5, glucose 10 9, calcium 8, magnesium 2, direct bilirubin 2.8, lactate dehydrogenase 386. WBC 1.3, H and H 9.3, 25 .7, platelets 27. Neutrophils, not present. The patient does have 36 segmented neutrophils and 6 ba nds. Blood cultures pending. Stool occult negative. Peripheral smear shows leukopenia with absolut e neutropenia and left shift, normocytic normochromic anemia with anisopoikilocytosis and nucleated r ed blood cells, thrombocytopenia. Assessment And Plan: A 62-year-old female with: 1.Syncope likely related to pancytopenia secondary to oral chemotherapy. No further episodes. 2.Pancytopenia. The patient received 2 units PRBCs. Hemoglobin is above 9 today, however, white co unt still at 1300 and platelet count [id number]. We will continue Neupogen. Appreciate Dr. Ansari's input. Transfuse platelets if less than 10 or if bleeding and less than 50. We will monitor H and H. The patient was attempted to be transferred to [facility], however, [facility] is on diversion, unable to accommodate the transfer. The patient and family understand that oral chemotherapy Ibrance on ho ld, which was likely secondary to chemotherapy related side effect. 3.Possible right middle lobe pneumonia versus atelectasis. We will continue with IV antibiotics. F ollow up on blood cultures, currently negative to date. Continue incentive spirometer. 4.Stage IV recurrent breast cancer with metastases to the lung, abdomen, and spine. Chemotherapy du e to her pancytopenia. Oncology on board. 5.Chronic pain syndrome secondary to breast cancer. We will continue with the pain medications and IV for breakthrough. 6.Chronic nausea, vomiting related to chemotherapy and stage IV breast cancer versus possible GI iss ues. We will continue with Reglan and Zofran. 7.Generalized anxiety disorder. Continue home medications as appropriate. Plan: Continue reverse isolation, GI, DVT prophylaxis. No chemical anticoagulation due to anemia. We will continue SCDs. Monitor closely. Transfuse as needed. Likely discharge once WBCs greater th an 2, and blood cultures negative. /MODL Voice ID: [id number] Report ID: [id number]
[2017-12-07] MEDS: LORAZEPAM 0.5 MG TABLET PO PRN (21:07)
--- NOTE | 2017-12-07 21:57 | PN ---
Date of Progress Note: 12/07/2017 Subjective: Ms. Nichole was resting comfortably visiting with a friend when I saw her this evening. She says she is starting to feel better. Her appetite has picked up and her nausea has decreased as of today. Objective: Vital Signs: Reveal that she remains afebrile. Temperature was 97.5 at noon today, pulse 67, respirations 18, blood pressure 125/70. She is saturating between 96 and 100% on room air. General: General physical examination reveals pallor and icterus. No petechiae , bleeding, or bruising was noted. Chest: Clear to auscultation. Heart: Sounds reveal normal S1 and S2. No gallops or murmurs. Abdomen: Soft and nontender. Bowel sounds were present. Neurologic: She is alert and oriented. Appears less lethargic today. No focal deficit noted. Laboratory Data: CBC this morning revealed a white count of 1300, hemoglobin was 9.3 g/dL after an overnight transfusion of 2 units of packed cells. Platelet count was 27,000. The reticulocyte count was 0.06 for a percent retic of 1.7%. Smear review revealed no schistocytes or immature WBCs or leukoerythroblastic reaction. Chemistries today revealed a total bilirubin of 4.4 with a direct bilirubin of 2.7. AST and ALT were normal. Alkaline phosphatase was decreasing at 491, as was the LDH which is also decreasing at 386. Assessment And Plan: 1.Pancytopenia: secondary to Ibrance and delayed transfusion reaction (DTR) Our workup also revealed that her LDH and indirect bilirubin were elevated, consistent with hemolysis. Review of the blood bank data and direct antiglobulin test revealed the presence of anti-c antibody. I explained the poly of this delayed reaction and the need for obtaining c-negative packed RBCs for her in the future. The DTR is resolving, will continue to monitor bilirubin, LDH and retic. No intervention is warranted for DTR at this time. Continue with Cefepime and Granix till her absolute neutrophil count is more than 2000 and she is is afebrile. We will continue to monitor her CBC and transfuse if her hemoglobin drops again to less than 7 g/dL. Her platelet count has declined but is still at 27,000, we would transfuse if her platelet count is less than 10,000 or she has significant bleeding. Plan is to continue to monitor her till her counts, especially her white blood count and platelet count, recover and the jaundice resolves, at which point she can be discharged to follow up with her oncologist at [facility]. 2. Pain: Continue current meds. 3.Nausea: Improving, continue reglan q AC and at HS and Zofran prn 4.Jaundice; Resolving 5.MBC; Follow up with Dr Juarez at [facility] within 1 week of discharge AP/CORAL Voice ID: [id number] Report ID: [id number] MTDD
[2017-12-08] MEDS: CEFEPIME/SWI 2gm 2 GM/20 ML SYR IV SCH ×2 (05:22→16:11)
[2017-12-08] MEDS: PANTOPRAZOLE 40MG TABLET PO SCH (05:29)
[2017-12-08 06:22] LABS: ALT/SGPT 43 U/L (12-78); AST/SGOT 29 U/L (15-37); Albumin 2.9 g/dL (3.4-5.0); Alkaline Phosphatase 495 U/L (45-117); BUN Blood Urea Nitrogen 17 mg/dL (7-18); Bicarbonate 26 mmol/L (21-32); Bilirubin Total 2.2 mg/dL (0.2-1.0); Glucose Level 99 mg/dL (74-106); Protein, Total 6.1 g/dL (6.4-8.2); Sodium Level 142 mmol/L (136-145)
[2017-12-08 06:37] LABS: Absolute Lymphocytes (CBC) 0.6 K/uL (0.7-4.9); Absolute Monocytes 0.2 K/uL (0.1-1.3); Absolute Neutrophil 0.8 K/uL (1.8-8.0); Basophils % 1.9 % (0-1.3); Eosinophils % 0.6 % (0-4.4); Lymphocytes % 36.9 % (15.3-44.8); MCH 29.3 pg (27.0-35.0); MCV 81.1 fL (80-100); MPV 8.5 fL (7.6-11.3); Monocytes % 9.6 % (3.3-12.3); RBC Red Blood Cell Count 3.09 M/uL (3.86-4.86)
[2017-12-08] MEDS: ENSURE HIGH PROTEIN 237 ML CAN PO SCH ×2 (07:58→20:12)
[2017-12-08] MEDS: DOCUSATE NA/SENNA CONC 1 TAB PO SCH ×3 (07:58→20:24)
[2017-12-08] MEDS: METOCLOPRAMIDE 10 MG/2mL INJ IV SCH ×4 (07:58→20:12)
[2017-12-08] MEDS: VENLAFAXINE HCL 37.5 MG TAB PO SCH ×2 (08:00→20:12)
[2017-12-08 08:14] LABS: Blood Morphology Comment NOT SEEN (NOT SEEN); Platelet Estimate DECR; Urine White Blood Cell Casts OK
[2017-12-08] MEDS ORDERED: POTASSIUM 25 MEQ EFFERV TAB PO ONE (12:02)
[2017-12-08] MEDS: TBO-FILGRASTIM 480 MCG/0.8 ML SYR SQ SCH (16:10)
--- NOTE | 2017-12-08 16:29 | PN ---
Date of Progress Note: 12/08/2017 Subjective: The patient seen and examined. Chart reviewed and case discussed with RN. The patient is feeling significantly better. No fevers overnight. Review of Systems: Negative except as above. Medications: List reviewed. Physical Examination: Vital Signs: Temperature 97.6, heart rate 58, blood pressure 136/76, respirations 17, O2 98% on room air. GENERAL: Awake, alert, oriented x3, in no acute distress, elderly female, obese. CV: S1, S2. No murmurs. Regular rate and rhythm. Peripheral pulses present. Respiratory: Moving air well bilaterally. No wheezing or stridor. Gastrointestinal: Abdomen is soft, nontender, nondistended. Positive bowel sounds. Extremities: No clubbing, cyanosis, or edema. Neurologic: Nonfocal. Laboratory Data: Sodium 142, potassium 3, chloride 108, CO2 of 26, BUN 17, creatinine 0.5, glucose 9 9, calcium 7.9, total bilirubin 2.2, AST 29, ALT 43, alkaline phosphatase 195, albumin 2.9. WBC 1.6, H and H 9 and 25, platelets 22, neutrophils 51%, absolute neutrophil count is 800. Blood cultures, no growth to date. Assessment: A 62-year-old female with: 1.Syncope related to pancytopenia, dehydration, secondary to oral chemotherapy. No further episodes resolved. 2.Pancytopenia. The patient's hemoglobin remaining stable above 9. Today, has received a total of [address] Ansari, the patient did have delayed hemolysis and transfusion reaction to anti body C. The patient will need blood that is screened for that antibody in the future. WBC count imp roving at 1.6, neutrophils now present around 800. We will continue with Granix. 3.Thrombocytopenia. We will continue to monitor platelet levels. Transfuse if less than 10 or if b leeding with less than 50. Chemotherapy currently on hold. 4.Possible right middle lobe pneumonia versus atelectasis. The patient does not have any cough, fev er, chills, or sputum production, likely atelectasis. We will continue incentive spirometer. Contin ue prophylactic antibiotics until WBC count improves. 5.Stage IV recurrent breast cancer with metastases to the lung, abdomen, spine. Chemotherapy is on hold. I appreciate Dr. Ansari's input. 6.Chronic pain syndrome, secondary to breast cancer. Continue pain medications. 7.Chronic nausea, vomiting, or chemotherapy and stage IV breast cancer. Continue Reglan and Zofran. 8.Generalized anxiety disorder, stable. Plan: Continue reverse isolation. No chemical anticoagulation due to anemia. We will continue SCDs . Likely discharge in a.m. If WBC count is greater than 2000 and platelets remained stable. The [place] tient to follow up with her sales program manager at [facility] as an outpatient. /CORAL Voice ID: [id number] Report ID: [id number]
[2017-12-08] MEDS ORDERED: POTASSIUM CL SA 10 MEQ TAB PO ONE (19:40)
[2017-12-09] MEDS: CEFEPIME/SWI 2gm 2 GM/20 ML SYR IV SCH (05:00)
[2017-12-09] MEDS: PANTOPRAZOLE 40MG TABLET PO SCH (05:32)
[2017-12-09 06:25] LABS: Absolute Lymphocytes (CBC) 0.8 K/uL (0.7-4.9); Absolute Monocytes 0.2 K/uL (0.1-1.3); Absolute Neutrophil 1.7 K/uL (1.8-8.0); Basophils % 1.3 % (0-1.3); Eosinophils % 0.6 % (0-4.4); Hematocrit 22.5 % (36.0-45.0); Lymphocytes % 27.8 % (15.3-44.8); MCH 28.5 pg (27.0-35.0); MCV 80.3 fL (80-100); MPV 10.5 fL (7.6-11.3); Monocytes % 8.2 % (3.3-12.3); RBC Red Blood Cell Count 2.81 M/uL (3.86-4.86)
[2017-12-09 06:46] LABS: ALT/SGPT 41 U/L (12-78); AST/SGOT 30 U/L (15-37); Albumin 2.8 g/dL (3.4-5.0); Alkaline Phosphatase 497 U/L (45-117); BUN Blood Urea Nitrogen 15 mg/dL (7-18); Bicarbonate 27 mmol/L (21-32); Bilirubin Total 1.5 mg/dL (0.2-1.0); Glucose Level 95 mg/dL (74-106); Potassium 3.5 mmol/L (3.5-5.1); Protein, Total 5.8 g/dL (6.4-8.2); Sodium Level 142 mmol/L (136-145)
[2017-12-09] MEDS: VENLAFAXINE HCL 37.5 MG TAB PO SCH (08:57)
[2017-12-09] MEDS: METOCLOPRAMIDE 10 MG/2mL INJ IV SCH ×2 (08:57→11:30)
[2017-12-09] MEDS: DOCUSATE NA/SENNA CONC 1 TAB PO SCH (08:57)
[2017-12-09] MEDS: ENSURE HIGH PROTEIN 237 ML CAN PO SCH (08:57)
--- NOTE | 2017-12-10 06:55 | DS ---
Date of Discharge: 12/09/2017 Consultants: Stephanie Lock M.D., with Oncology. Admitting Diagnoses: 1.Syncope, secondary to pancytopenia related to oral chemotherapy. 2.Stage IV recurrent breast cancer with mets to the skull, lung, abdomen, and spine. 3.Chronic pain syndrome, secondary to breast cancer. 4.Generalized anxiety disorder. Discharge Diagnoses: 1.Syncope, related to pancytopenia and dehydration, secondary to oral chemotherapy, resolved. 2.Pancytopenia, improved status post 2 units PRBCs. 3.Possible right middle lobe pneumonia versus atelectasis. No clinical signs or symptoms of pneumon ia, most likely atelectasis. 4.Stage IV recurrent breast cancer with mets to the lung, abdomen, and spine; oral chemotherapy on h old. 5.Chronic pain syndrome, secondary to breast cancer. 6.Chronic intractable nausea and vomiting, secondary to chemotherapy. 7.Generalized anxiety disorder, stable. Hospital Course: The patient is a 62-year-old female who came in with a syncopal episode. The patie nt has history of stage IV breast cancer with diffuse metastases and neurofibromatosis. She usually is seen at [facility]. The patient is on chemotherapy and was found to have become dehydrated post chemotherapy. She was pancytopenic with febrile neutropenia, and she was started on IV antibiotics. Cultures were obtained which were negative. The patient did require blood transfusion of 2 units of PRBCs. The hemoglobin remained stable post transfusion. She was started on Granix for her pancytop enia. Her white blood cell counts did improve to 2.8 and she had 17[address] neutrophils. The patient's pl atelets remained low. However, she has not had any bleeding and did not require any platelet transfu sions. Dr. Ansari with Oncology was consulted. She agreed with the treatment plan and recommended the patient to be discharged once white count above 2. The patient was attempted to be transferred to [facility]; however, they were on diversion. Family understood and the patient will be treated here. The patient overall did well. She did not have any further temperature spikes. Her cultures were negative. Her orthostatic vital signs were also negative. She was able to ambulate without any diff iculty. No further syncopal episodes. The patient was then discharged in a stable condition. Activity: As tolerated. No driving or operating heavy machinery while on narcotics. Diet: Heart healthy. Followup: Follow up with primary care physician in 2-3 days. Follow up with oncologist at [facility] on on Wednesday as scheduled. Repeat CBC in 1 week and platelets in 1 week. Return to ER for worsening condition. Physical Examination: General: Awake, alert, oriented x3. No acute distress. CV: S1, S2. No murmurs. Respiratory: Moving air well bilaterally. No wheezing. Gastrointestinal: Abdomen is soft, nontender, nondistended. Positive bowel sounds. Extremities: No clubbing, cyanosis, or edema. Neurologic: Nonfocal. Total time spent discharging the patient was 38 minutes. MARY Voice ID: [id number] Report ID: [id number]
== END 2017-12-09 12:47 | disposition home health service (06) | DRG 809 ==
LOC: ER 12:19 → ERHOLD 14:01 → 4TH 17:16
PROVIDERS: ADMIT Family Medicine; ATTEND Family Medicine
PROC: 30233N1 Transfusion of Nonautologous Red Blood Cells into Peripheral Vein, Percutaneous Approach (ICD-10-PCS; principal; 2017-12-04)
DX: D61.810 Antineoplastic chemotherapy induced pancytopenia (principal); J98.11 Atelectasis; C78.00 Secondary malignant neoplasm of unspecified lung; C79.89 Secondary malignant neoplasm of other specified sites; C79.51 Secondary malignant neoplasm of bone; R17 Unspecified jaundice; E86.0 Dehydration; R55 Syncope and collapse; R11.2 Nausea with vomiting, unspecified; G89.4 Chronic pain syndrome; T45.1X5A Adverse effect of antineoplastic and immunosuppressive drugs, initial encounter; Y92.019 Unspecified place in single-family (private) house as the place of occurrence of the external cause; F41.1 Generalized anxiety disorder; Z90.11 Acquired absence of right breast and nipple; C50.911 Malignant neoplasm of unspecified site of right female breast; Q85.00 Neurofibromatosis, unspecified; F32.9 Major depressive disorder, single episode, unspecified; Z80.9 Family history of malignant neoplasm, unspecified
CPT/HCPCS: 36415; 70450; 71045; 71046; 80048; 80053; 80076; 81001; 81003; 81015; 82248; 82272; 82607; 82728; 82746; 82962; 83540; 83615; 83690; 83735; 83880; 84132; 84145; 84466; 84484; 85025; 85044; 85610; 85652; 86140; 86850; 86870; 86880; 86900; 86901; 86922; 87040; 93005; 96374; 96375; 97163; 99285; C9113; J0692; J1446; J1940; J2405; J2765; J7030; P9016

== ENCOUNTER 2018-10-31 17:14 | Emergency (ER) | payer BC ==
[2018-10-31 18:49] LABS: Absolute Lymphocytes (CBC) 1.4 K/uL (0.7-4.9); Hematocrit 31.9 % (36.0-45.0); Lymphocytes % 19.9 % (15.3-44.8); MPV 7.5 fL (7.6-11.3); RBC Red Blood Cell Count 3.85 M/uL (3.86-4.86)
[2018-10-31 18:57] LABS: Protime INR 1.21
[2018-10-31 19:05] LABS: Albumin 3.6 g/dL (3.4-5.0); Bilirubin Direct 0.3 mg/dL (0-0.2); Bilirubin Total 0.9 mg/dL (0.2-1.0); Protein, Total 7.7 g/dL (6.4-8.2)
--- NOTE | 2018-10-31 19:21 | RAD REPORT ---
EXAM DESCRIPTION: RAD - Chest Single View - 10/31/2018 7:04 pm CLINICAL HISTORY: FEVER Chest pain. COMPARISON: Chest Pa And Lat (2 Views) dated 12/05/2017; Chest Single View dated 12/04/2017 FINDINGS: Portable technique limits examination quality. Mild linear atelectasis is present in the right lung base, likely chronic. The lungs are otherwise cl ear. The heart is mildly enlarged in size. No displaced fractures.
[2018-10-31] MEDS ORDERED: HEPARIN 500 UNIT/5 ML SYR IV ONE (20:11)
--- NOTE | 2018-10-31 20:18 | ER ---
Nurse's Notes [facility] Name: Esther Nichole Age: 62 yrs Sex: Female : 1955 Arrival Date: 10/31/2018 Time: 17:16 Bed 7 Private MD: Diagnosis: Fever, unspecified Presentation: 10/31 17:35 Presenting complaint: Patient states: hx of Stage V breast cancer, mets to liver, iw abdomen, lungs, spine, skull, started running fever last night 101.4, today temp was running 99-100, called her doctor at [facility] and was told to come to ER, is currently on chemo, Ibrance PO daily. Pt denies cough/congestion, denies urinary s/s, c/o body aches and nausea. Transition of care: patient was not received from another setting of care. Onset of symptoms was October 30, 2018. Risk Assessment: Do you want to hurt yourself or someone else? Patient reports no desire to harm self or others. Initial Sepsis Screen: Does the patient meet any 2 criteria? No. Patient's initial sepsis screen is negative. Does the patient have a suspected source of infection? No. Patient's initial sepsis screen is negative. Care prior to arrival: None. 17:35 Method Of Arrival: Ambulatory iw 17:35 Acuity: KAMILAH 3 iw Historical: - Allergies: 17:43 No Known Allergies; iw - Home Meds: 17:43 Ibrance 100 mg oral cap daily, 3 weeks on, 1 week off [Active]; venlafaxine 75 mg oral iw tab daily [Active]; Reglan 10 mg Oral tab as needed [Active]; lorazepam 1 mg Oral tab 3 times per day [Active]; - PMHx: 17:43 Cancer, Breast; iw - PSHx: 17:43 Mastectomy, Right; Cholecystectomy; ; Hysterectomy; iw 17:44 neurofibroma removed from spine and neck; iw - Immunization history:: Adult Immunizations. - Social history:: Smoking status: Patient/guardian denies using tobacco. - Ebola Screening: : Patient negative for fever greater than or equal to 101.5 degrees Fahrenheit, and additional compatible Ebola Virus Disease symptoms Patient denies exposure to infectious person Patient denies travel to an Ebola-affected area in the 21 days before illness onset No symptoms or risks identified at this time. Screenin:50 Abuse screen: Denies threats or abuse. Denies injuries from another. Nutritional jl7 screening: No deficits noted. Tuberculosis screening: No symptoms or risk factors identified. Fall Risk IV access (20 points). Total [place] Fall Scale indicates No Risk (0-24 pts). Assessment: 17:45 General: Appears in no apparent distress. uncomfortable, Behavior is calm, cooperative, jl7 appropriate for age. Pain: Denies pain. Neuro: Level of Consciousness is awake, alert, obeys commands, Oriented to person, place, time, situation. Cardiovascular: Patient's skin is warm and dry. Respiratory: Airway is patent Respiratory effort is even, unlabored, Respiratory pattern is regular, symmetrical. GI: No signs and/or symptoms were reported involving the gastrointestinal system. : No signs and/or symptoms were reported regarding the genitourinary system. EENT: No signs and/or symptoms were reported regarding the EENT system. Derm: Skin is pink, warm \T\ dry. Musculoskeletal: No signs and/or symptoms reported regarding the musculoskeletal system. 18:50 Reassessment: Patient appears in no apparent distress at this time. No changes from jl7 previously documented assessment. Patient and/or family updated on plan of care and expected duration. Pain level reassessed. Patient is alert, oriented x 3, equal unlabored respirations, skin warm/dry/pink. 18:53 Reassessment: pt attempted to provide urine sample but is unable to do so at this time. jl7 19:00 General: Appears in no apparent distress. Behavior is calm, cooperative, appropriate ea for age. Pain: Denies pain. Neuro: Level of Consciousness is awake, alert, obeys commands, Oriented to person, place, time, situation. Cardiovascular: Patient's skin is warm and dry. Respiratory: Airway is patent Respiratory effort is even, unlabored, Respiratory pattern is regular, symmetrical. Derm: Skin is pink, warm \T\ dry. 20:45 Reassessment: Patient and/or family updated on plan of care and expected duration. Pain ea level reassessed. Patient is alert, oriented x 3, equal unlabored respirations, skin warm/dry/pink. Discharge instruction given to patient and daughter, both verbalized the understanding of instruction. Pt left via wheelchair accompanied by daughter, pt tolerated well. Vital Signs: 17:44 BP 127 / 79; Pulse 69; Resp 18 S; Temp 98.6(TE); Pulse Ox 100% on R/A; Weight 81.65 kg; iw Height 5 ft. 3 in. (160.02 cm); Pain 0/10; 18:50 BP 140 / 74; Pulse 68; Resp 16 S; Pulse Ox 100% on R/A; jl7 20:14 BP 109 / 78; Pulse 70; Resp 18; Pulse Ox 99% on R/A; mt 20:34 BP 124 / 80; Pulse 67; Resp 18; Pulse Ox 100% on R/A; ea 20:47 Temp 98.7; ea 17:44 Body Mass Index 31.89 (81.65 kg, 160.02 cm) iw ED Course: 17:16 Patient arrived in ED. mr 17:32 Rashid Boogie MD is Attending Physician. gs 17:36 Janet Hackett, CHRIS is Primary Nurse. jl7 17:39 Triage completed. iw 17:44 Arm band placed on. iw 18:35 Inserted saline lock: 22 gauge in left upper arm, using aseptic technique. Blood jl7 collected. 18:35 Initial lab(s) drawn, by nm, sent to lab. First set of blood cultures drawn by me. jl7 18:49 Radiology exam delayed due to in the bathroom. ml 18:50 Patient has correct armband on for positive identification. Placed in gown. Bed in low jl7 position. Call light in reach. Side rails up X 1. Pulse ox on. NIBP on. 19:04 Chest Single View XRAY In Process Unspecified. EDMS 20:45 IV discontinued, intact, bleeding controlled, No redness/swelling at site. Pressure ea dressing applied. 20:48 No provider procedures requiring assistance completed. ea Administered Medications: No medications were administered Outcome: 20:17 Discharge ordered by MD. gs 20:48 Discharged to home via wheelchair, with family. ea 20:48 Condition: stable 20:48 Discharge instructions given to patient, family, Instructed on discharge instructions, follow up and referral plans. Demonstrated understanding of instructions, follow-up care. 20:48 Patient left the ED. ea Signatures: Dispatcher [employer] EDCO Toma Avina mr Torie Reynaga, RN RN iw Candelaria Ocampo Janet Hackett, CHRIS RN jl7 Grisel Dawn mt, Elena, RN RN ea Starr, Gregory, MD MD gs Corrections: (The following items were deleted from the chart) 17:40 17:35 Presenting complaint: Patient states: hx of Stage V breast cancer, mets to liver, iw abdomen, lungs, spine, skull, started running fever last night 101.4, today temp was running 99-100, called her doctor at [facility] and was told to come to ER, is currently on chemo, Imbrance PO daily. Pt denies cough/congestion, denies urinary s/s, c/o body aches and nausea iw
--- NOTE | 2018-10-31 20:19 | EDPHYS ---
Physician Documentation [facility] Name: Esther Nichole Age: 62 yrs Sex: Female : 1955 Arrival Date: 10/31/2018 Time: 17:16 Bed 7 Private MD: ED Physician Rashid Boogie HPI: 10/31 20:14 This 62 yrs old Female presents to ER via Ambulatory with complaints of Fever.gs 20:14 The patient reports fever, with a pattern that is intermittent. Onset: The gs symptoms/episode began/occurred yesterday. Modifying factors: there are no obvious modifying factors. Associated signs and symptoms: Pertinent negatives: None. Severity of symptoms: At their worst the symptoms were moderate in the emergency department the symptoms have resolved. The patient has experienced similar episodes in the past, a few times. chemo. Historical: - Allergies: 17:43 No Known Allergies; iw - Home Meds: 17:43 Ibrance 100 mg oral cap daily, 3 weeks on, 1 week off [Active]; venlafaxine 75 mg oral iw tab daily [Active]; Reglan 10 mg Oral tab as needed [Active]; lorazepam 1 mg Oral tab 3 times per day [Active]; - PMHx: 17:43 Cancer, Breast; iw - PSHx: 17:43 Mastectomy, Right; Cholecystectomy; ; Hysterectomy; iw 17:44 neurofibroma removed from spine and neck; iw - Immunization history:: Adult Immunizations. - Social history:: Smoking status: Patient/guardian denies using tobacco. - Ebola Screening: : Patient negative for fever greater than or equal to 101.5 degrees Fahrenheit, and additional compatible Ebola Virus Disease symptoms Patient denies exposure to infectious person Patient denies travel to an Ebola-affected area in the 21 days before illness onset No symptoms or risks identified at this time. ROS: 20:14 All other systems are negative. gs Exam: 20:14 Head/Face: Normocephalic, atraumatic. Eyes: Pupils equal round and reactive to light, gs extra-ocular motions intact. Lids and lashes normal. Conjunctiva and sclera are non-icteric and not injected. Cornea within normal limits. Periorbital areas with no swelling, redness, or edema. ENT: Nares patent. No nasal discharge, no septal abnormalities noted. Tympanic membranes are normal and external auditory canals are clear. Oropharynx with no redness, swelling, or masses, exudates, or evidence of obstruction, uvula midline. Mucous membranes moist. Neck: Trachea midline, no thyromegaly or masses palpated, and no cervical lymphadenopathy. Supple, full range of motion without nuchal rigidity, or vertebral point tenderness. No Meningismus. Chest/axilla: Normal chest wall appearance and motion. Nontender with no deformity. No lesions are appreciated. Cardiovascular: Regular rate and rhythm with a normal S1 and S2. No gallops, murmurs, or rubs. Normal PMI, no JVD. No pulse deficits. Respiratory: Lungs have equal breath sounds bilaterally, clear to auscultation and percussion. No rales, rhonchi or wheezes noted. No increased work of breathing, no retractions or nasal flaring. Abdomen/GI: Soft, non-tender, with normal bowel sounds. No distension or tympany. No guarding or rebound. No evidence of tenderness throughout. Back: No spinal tenderness. No costovertebral tenderness. Full range of motion. Skin: Warm, dry with normal turgor. Normal color with no rashes, no lesions, and no evidence of cellulitis. MS/ Extremity: Pulses equal, no cyanosis. Neurovascular intact. Full, normal range of motion. Neuro: Awake and alert, GCS 15, oriented to person, place, time, and situation. Cranial nerves II-XII grossly intact. Motor strength 5/5 in all extremities. Sensory grossly intact. Cerebellar exam normal. Normal gait. 20:14 Constitutional: The patient appears alert, awake. Vital Signs: 17:44 BP 127 / 79; Pulse 69; Resp 18 S; Temp 98.6(TE); Pulse Ox 100% on R/A; Weight 81.65 kg; iw Height 5 ft. 3 in. (160.02 cm); Pain 0/10; 18:50 BP 140 / 74; Pulse 68; Resp 16 S; Pulse Ox 100% on R/A; jl7 20:14 BP 109 / 78; Pulse 70; Resp 18; Pulse Ox 99% on R/A; mt 20:34 BP 124 / 80; Pulse 67; Resp 18; Pulse Ox 100% on R/A; ea 20:47 Temp 98.7; ea 17:44 Body Mass Index 31.89 (81.65 kg, 160.02 cm) iw MDM: 17:57 Patient medically screened. gs 20:14 Differential diagnosis: viral Infection, bacterial infection, pneumonia. Data reviewed: vital signs, nurses notes, lab test result(s), radiologic studies. Counseling: I had a detailed discussion with the patient and/or guardian regarding: the historical points, exam findings, and any diagnostic results supporting the discharge/admit diagnosis. Response to treatment: the patient's symptoms have markedly improved after treatment. ED course: spoke to her doctor at [facility] wants follow up tomorrow repeat wbc. 10/31 17:57 Order name: Basic Metabolic Panel; Complete Time: 19:21 10/31 17:57 Order name: Blood Culture Adult (2) 10/31 17:57 Order name: CBC with Diff; Complete Time: 19:21 10/31 17:57 Order name: Lactate; Complete Time: 19:21 10/31 17:57 Order name: LFT's; Complete Time: 19:21 10/31 17:57 Order name: Lipase; Complete Time: 19:21 10/31 17:57 Order name: Procalcitonin; Complete Time: 19:40 10/31 17:57 Order name: Protime (+inr); Complete Time: 19:21 10/31 17:57 Order name: Chest Single View XRAY; Complete Time: 19:40 10/31 17:57 Order name: Accucheck; Complete Time: 18:45 10/31 17:57 Order name: Cardiac monitoring; Complete Time: 18:45 10/31 17:57 Order name: IV Saline Lock - Large Bore; Complete Time: 18:45 10/31 17:57 Order name: Labs collected and sent; Complete Time: 18:45 10/31 17:57 Order name: O2 Per Protocol; Complete Time: 18:45 10/31 17:57 Order name: O2 Sat Monitoring; Complete Time: 18:45 gs Administered Medications: No medications were administered Disposition: 10/31/18 20:17 Discharged to Home. Impression: Fever, unspecified. - Condition is Stable. - Discharge Instructions: Fever, Adult. - Medication Reconciliation Form, Thank You Letter, Antibiotic Education, Prescription Opioid Use form. - Follow up: Private Physician; When: Tomorrow. Signatures: Dispatcher [employer] EDMS Torie Reynaga RN RN No [place] RN Rashid Hobbs ea, MD MD gs Corrections: (The following items were deleted from the chart) 20:48 17:59 UA MICROSCOPIC+U.LAB.BRZ ordered. [facility] EDIA 20:48 20:17 10/31/2018 20:17 Discharged to Home. Impression: Fever, unspecified. Condition is ea Stable. Forms are Medication Reconciliation Form, Thank You Letter, Antibiotic Education, Prescription Opioid Use. Follow up: Private Physician; When: Tomorrow. gs
== END 2018-10-31 20:48 | disposition home or self-care (01) ==
LOC: ER 17:14
DX: R50.9 Fever, unspecified (principal); Z85.3 Personal history of malignant neoplasm of breast
CPT/HCPCS: 87040 ×2; 85025; 80048; 36415; 85610; 80076; 83605; 83690; 84145; 71045; 99284; J1642

== ENCOUNTER 2018-12-20 15:18 | Observation (INO) | payer BC ==
[2018-12-20 16:36] LABS: Absolute Lymphocytes (CBC) 0.6 K/uL (0.7-4.9); Basophils % 1.7 % (0-1.3); Hematocrit 18.8 % (36.0-45.0); MPV 8.1 fL (7.6-11.3); Protime INR 1.11; RBC Red Blood Cell Count 2.17 M/uL (3.86-4.86)
[2018-12-20 16:48] LABS: ALT/SGPT 44 U/L (12-78); AST/SGOT 32 U/L (15-37); Albumin 3.5 g/dL (3.4-5.0); Alkaline Phosphatase 357 U/L (45-117); BUN Blood Urea Nitrogen 20 mg/dL (7-18); Bicarbonate 22 mmol/L (21-32); Bilirubin Direct 0.2 mg/dL (0-0.2); Bilirubin Total 0.7 mg/dL (0.2-1.0); Glucose Level 144 mg/dL (74-106); Lipase 132 U/L (73-393); Magnesium 2.3 mg/dL (1.8-2.4); NT PRO-BNP 54 pg/mL (<125); Potassium 3.7 mmol/L (3.5-5.1); Protein, Total 6.9 g/dL (6.4-8.2); Sodium Level 138 mmol/L (136-145); Troponin (Emerg Dept Use Only) < 0.02 ng/mL (0.0-0.045)
--- NOTE | 2018-12-20 16:53 | RAD REPORT ---
EXAM DESCRIPTION: RAD - Chest Single View - 12/20/2018 4:31 pm CLINICAL HISTORY: Cough, dyspnea, metastatic breast carcinoma COMPARISON: October 31, 2018 TECHNIQUE: AP portable chest image was obtained 1627 hours . FINDINGS: Lung volumes are low accentuating heart, vasculature and lung markings. No peripheral mass or consolidation. Early interstitial edema or infiltrate can be masked by the shallow inspiration. H eart and vasculature are normal. No measurable pleural effusion and no pneumothorax. No new bone find ing from prior imaging. No acute aortic findings suspected. IMPRESSION: Limited shallow inspiration film without peripheral mass or consolidation. Mild interstitial edema or infiltrate can be masked by the baseline pattern and shallow inspiration.
[2018-12-20] MEDS ORDERED: NA CHLORIDE 0.9% 1,000 ML ONE (16:55)
--- NOTE | 2018-12-20 16:59 | EDPHYS ---
Physician Documentation [facility] Name: Esther Nichole Age: 63 yrs Sex: Female : 1955 Arrival Date: 12/20/2018 Time: 15:20 Bed 5 Private MD: ED Physician Peyman Yates HPI: 12/20 16:54 This 63 yrs old Female presents to ER via Wheelchair with complaints of kaykay Shortness Of Breath, Weakness. 16:54 The patient has shortness of breath at rest, with light activity. Onset: The kaykay symptoms/episode began/occurred 2 day(s) ago. Historical: - Allergies: 15:29 No Known Allergies; la1 - PMHx: 15:29 Cancer, Breast; neurofibromatosis; St 4 metastatic right breast cancer; la1 - Immunization history:: Adult Immunizations up to date. - Social history:: Smoking status: Patient/guardian denies using tobacco. - Ebola Screening: : No symptoms or risks identified at this time. ROS: 16:55 Constitutional: Negative for fever, chills, and weight loss, Eyes: Negative for injury, kaykay pain, redness, and discharge, ENT: Negative for injury, pain, and discharge, Neck: Negative for injury, pain, and swelling, Cardiovascular: Negative for chest pain, palpitations, and edema, Abdomen/GI: Negative for abdominal pain, nausea, vomiting, diarrhea, and constipation, Back: Negative for injury and pain, : Negative for injury, bleeding, discharge, and swelling, MS/Extremity: Negative for injury and deformity, Skin: Negative for injury, rash, and discoloration, Neuro: Negative for headache, weakness, numbness, tingling, and seizure, Psych: Negative for depression, anxiety, suicide ideation, homicidal ideation, and hallucinations, Allergy/Immunology: Negative for hives, rash, and allergies, Endocrine: Negative for neck swelling, polydipsia, polyuria, polyphagia, and marked weight changes, Hematologic/Lymphatic: Negative for swollen nodes, abnormal bleeding, and unusual bruising. 16:55 Respiratory: Positive for shortness of breath, at rest. Exam: 16:55 Constitutional: This is a well developed, well nourished patient who is awake, alert, kaykay and in no acute distress. Head/Face: Normocephalic, atraumatic. Eyes: Pupils equal round and reactive to light, extra-ocular motions intact. Lids and lashes normal. Conjunctiva and sclera are non-icteric and not injected. Cornea within normal limits. Periorbital areas with no swelling, redness, or edema. ENT: Nares patent. No nasal discharge, no septal abnormalities noted. Tympanic membranes are normal and external auditory canals are clear. Oropharynx with no redness, swelling, or masses, exudates, or evidence of obstruction, uvula midline. Mucous membranes moist. Neck: Trachea midline, no thyromegaly or masses palpated, and no cervical lymphadenopathy. Supple, full range of motion without nuchal rigidity, or vertebral point tenderness. No Meningismus. Chest/axilla: Normal chest wall appearance and motion. Nontender with no deformity. No lesions are appreciated. Cardiovascular: Regular rate and rhythm with a normal S1 and S2. No gallops, murmurs, or rubs. Normal PMI, no JVD. No pulse deficits. Respiratory: Lungs have equal breath sounds bilaterally, clear to auscultation and percussion. No rales, rhonchi or wheezes noted. No increased work of breathing, no retractions or nasal flaring. Abdomen/GI: Soft, non-tender, with normal bowel sounds. No distension or tympany. No guarding or rebound. No evidence of tenderness throughout. Back: No spinal tenderness. No costovertebral tenderness. Full range of motion. Female : Normal external genitalia. MS/ Extremity: Pulses equal, no cyanosis. Neurovascular intact. Full, normal range of motion. Neuro: Awake and alert, GCS 15, oriented to person, place, time, and situation. Cranial nerves II-XII grossly intact. Motor strength 5/5 in all extremities. Sensory grossly intact. Cerebellar exam normal. Normal gait. Psych: Awake, alert, with orientation to person, place and time. Behavior, mood, and affect are within normal limits. 16:55 Musculoskeletal/extremity: DVT Exam: No signs of deep vein thrombosis. no pain, no swelling, no tenderness, negative Homans' sign noted on exam, no appreciated bluish discoloration, no erythema, no increased warmth. 16:55 Skin: Appearance: Color: pale, Temperature: normal temperature, Moisture: normal moisture, petechiae, not noted, ecchymosis, not noted, flushing, not noted, diaphoresis is not appreciated. Vital Signs: 15:29 BP 116 / 82; Pulse 83; Resp 16; Temp 97.2; Pulse Ox 100% on R/A; Weight 86.18 kg; la1 Height 5 ft. 3 in. (160.02 cm); 16:25 BP 116 / 73; Pulse 88; Resp 19 S; Pulse Ox 100% on R/A; Pain 0/10; jl7 17:59 BP 132 / 85; Pulse 94; Resp 16 S; Pulse Ox 96% on R/A; jl7 18:42 BP 140 / 86; Pulse 71; Resp 16 S; Pulse Ox 100% on R/A; jl7 19:16 BP 134 / 69; Pulse 75; Resp 16; Temp 98.4; Pulse Ox 100% on R/A; Pain 0/10; aa1 15:29 Body Mass Index 33.66 (86.18 kg, 160.02 cm) la1 MDM: 16:02 Patient medically screened. [facility] 12/20 16:04 Order name: Basic Metabolic Panel; Complete Time: 16:53 [facility] 12/20 16:04 Order name: CBC with Diff [facility] 12/20 16:04 Order name: LFT's; Complete Time: 16:53 [facility] 12/20 16:04 Order name: Magnesium; Complete Time: 16:53 [facility] 12/20 16:04 Order name: NT PRO-BNP; Complete Time: 16:53 [facility] 12/20 16:04 Order name: PT-INR; Complete Time: 16:53 [facility] 12/20 16:04 Order name: Troponin (emerg Dept Use Only); Complete Time: 16:53 [facility] 12/20 16:04 Order name: Lipase; Complete Time: 16:53 [facility] 12/20 16:04 Order name: Urine Culture [facility] 12/20 16:04 Order name: Blood Culture Adult (2) [facility] 12/20 16:56 Order name: Bb Add On bd 12/20 16:56 Order name: Type And Screen bd 12/20 17:13 Order name: CBC Smear Scan [facility] 12/20 17:14 Order name: Packed RBC Leukored [facility] 12/20 16:04 Order name: XRAY Chest (1 view) [facility] 12/20 16:04 Order name: EKG; Complete Time: 16:05 [facility] 12/20 16:04 Order name: Cardiac monitoring; Complete Time: 16:19 [facility] 12/20 18:24 Order name: Antibody Identification EDMS 12/20 18:31 Order name: Comprehensive Metabolic Panel EDMS 12/20 18:31 Order name: Comprehensive Metabolic Panel EDMS 12/20 18:32 Order name: CONS Pharmacy Consult EDMS 12/20 18:32 Order name: Regular EDMS 12/20 18:32 Order name: CBC with Automated Diff EDMS 12/20 18:32 Order name: CBC with Automated Diff EDMS 12/20 18:32 Order name: Protime (+INR) EDMS 12/20 18:32 Order name: Protime (+INR) EDMS 12/20 18:32 Order name: PTT, Activated Partial Thromb EDMS 12/20 18:32 Order name: PTT, Activated Partial Thromb EDMS 12/20 19:23 Order name: Urine Dipstick--Ancillary (enter results) [facility] 12/20 16:04 Order name: EKG - Nurse/Tech; Complete Time: 16:32 [facility] 12/20 16:04 Order name: IV Saline Lock; Complete Time: 16:19 [facility] 12/20 16:04 Order name: Labs collected and sent; Complete Time: 16:33 [facility] 12/20 16:04 Order name: O2 Per Protocol; Complete Time: 16:33 [facility] 12/20 16:04 Order name: O2 Sat Monitoring; Complete Time: 16:32 [facility] 12/20 16:04 Order name: Urine Dipstick-Ancillary (obtain specimen); Complete Time: 19:11 [facility] Administered Medications: 17:01 Drug: NS 0.9% 1000 ml Route: IV; Rate: 125 ml/hr; Site: left upper arm; jl7 19:11 Follow up: IV Status: Infusion continued upon admission aa1 Disposition: 12/20/18 16:58 Hospitalization ordered by Isis Martell for Inpatient Admission. Preliminary diagnosis are Weakness, Dyspnea, Anemia, unspecified - hgb 6.5. - Bed requested for Telemetry/MedSurg (Inpatient). - Status is Inpatient Admission. aa1 - Condition is Fair. - Problem is new. - Symptoms have improved. UTI on Admission? No Signatures: Dispatcher [employer] EDUT Leonila Mg Alissa RN RN aa1 Peyman Yates MD MD cha Attema, Lee, RN RN la1 Janet Hackett RN RN jl7 Corrections: (The following items were deleted from the chart) 18:45 16:58 Hospitalization Ordered by Isis Martell MD for Inpatient Admission. Preliminary bd diagnosis is Weakness; Dyspnea; Anemia, unspecified - hgb 6.5. Bed requested for Telemetry/MedSurg (Inpatient). Status is Inpatient Admission. Condition is Fair. Problem is new. Symptoms have improved. UTI on Admission? No. kaykay 19:28 18:45 12/20/2018 16:58 Hospitalization Ordered by Isis Martell MD for Inpatient aa1 Admission. Preliminary diagnosis is Weakness; Dyspnea; Anemia, unspecified - hgb 6.5. Bed requested for Telemetry/MedSurg (Inpatient). Status is Inpatient Admission. Condition is Fair. Problem is new. Symptoms have improved. UTI on Admission? No. bd
--- NOTE | 2018-12-20 16:59 | ER ---
Nurse's Notes [facility] Name: Esther Nichole Age: 63 yrs Sex: Female : 1955 Arrival Date: 12/20/2018 Time: 15:20 Bed 5 Private MD: Diagnosis: Weakness;Dyspnea;Anemia, unspecified-hgb 6.5 Presentation: 12/20 15:28 Presenting complaint: Patient states: I have stage 4 breast CA, taking oral chemo, last la1 dose yesterday, labs this morning with MD yates, blood levels very low instructed to come to ED. Transition of care: patient was not received from another setting of care. Onset of symptoms was December 20, 2018. Risk Assessment: Do you want to hurt yourself or someone else? Patient reports no desire to harm self or others. Initial Sepsis Screen: Does the patient meet any 2 criteria? No. Patient's initial sepsis screen is negative. Does the patient have a suspected source of infection? No. Patient's initial sepsis screen is negative. Care prior to arrival: None. 15:28 Method Of Arrival: Wheelchair la1 15:28 Acuity: KAMILAH 2 la1 Historical: - Allergies: 15:29 No Known Allergies; la1 - PMHx: 15:29 Cancer, Breast; neurofibromatosis; St 4 metastatic right breast cancer; la1 - Immunization history:: Adult Immunizations up to date. - Social history:: Smoking status: Patient/guardian denies using tobacco. - Ebola Screening: : No symptoms or risks identified at this time. Screenin:25 Abuse screen: Denies threats or abuse. Denies injuries from another. Nutritional jl7 screening: No deficits noted. Tuberculosis screening: No symptoms or risk factors identified. Fall Risk IV access (20 points). Total [place] Fall Scale indicates No Risk (0-24 pts). Assessment: 16:25 General: Appears in no apparent distress. uncomfortable, Behavior is calm, cooperative, jl7 appropriate for age. Pain: Denies pain. Neuro: Level of Consciousness is awake, alert, obeys commands, Oriented to person, place, time, situation. Cardiovascular: Rhythm is sinus rhythm. Respiratory: Reports shortness of breath at rest Airway is patent Respiratory effort is even, unlabored, Respiratory pattern is regular, symmetrical, Breath sounds are clear bilaterally. GI: No signs and/or symptoms were reported involving the gastrointestinal system. : No signs and/or symptoms were reported regarding the genitourinary system. EENT: No signs and/or symptoms were reported regarding the EENT system. Derm: Skin is pink, warm \T\ dry. Musculoskeletal: No signs and/or symptoms reported regarding the musculoskeletal system. 17:30 Reassessment: Patient appears in no apparent distress at this time. No changes from jl7 previously documented assessment. Patient and/or family updated on plan of care and expected duration. Pain level reassessed. Patient is alert, oriented x 3, equal unlabored respirations, skin warm/dry/pink. 18:00 Reassessment: Pt given sandwich, chips and a drink. Denies pain and discomfort at this jl7 time. 19:12 Reassessment: Patient appears in no apparent distress at this time. Patient and/or aa1 family updated on plan of care and expected duration. Pain level reassessed. Patient is alert, oriented x 3, equal unlabored respirations, skin warm/dry/pink. Attempted to call report to 2nd floor, was asked to call back in 10 mins Patient denies pain at this time. 19:25 Reassessment: Report given to CHRIS Garcia on 2nd floor. aa1 Vital Signs: 15:29 BP 116 / 82; Pulse 83; Resp 16; Temp 97.2; Pulse Ox 100% on R/A; Weight 86.18 kg; la1 Height 5 ft. 3 in. (160.02 cm); 16:25 BP 116 / 73; Pulse 88; Resp 19 S; Pulse Ox 100% on R/A; Pain 0/10; jl7 17:59 BP 132 / 85; Pulse 94; Resp 16 S; Pulse Ox 96% on R/A; jl7 18:42 BP 140 / 86; Pulse 71; Resp 16 S; Pulse Ox 100% on R/A; jl7 19:16 BP 134 / 69; Pulse 75; Resp 16; Temp 98.4; Pulse Ox 100% on R/A; Pain 0/10; aa1 15:29 Body Mass Index 33.66 (86.18 kg, 160.02 cm) la1 ED Course: 15:20 Patient arrived in ED. mr 15:29 Triage completed. la1 15:29 Arm band placed on right wrist. la1 15:47 Hackett, Jahala, RN is Primary Nurse. jl7 15:59 EKG done, by procedures tech. reviewed by Peyman Yates MD. 3 16:02 Peyman Yates MD is Attending Physician. [facility] 16:19 Inserted saline lock: 22 gauge in left upper arm, using aseptic technique. Blood ss collected. 16:25 Patient has correct armband on for positive identification. Placed in gown. Bed in low jl7 position. Call light in reach. Side rails up X2. patient monitor on. Pulse ox on. NIBP on. Warm blanket given. 16:32 XRAY Chest (1 view) In Process Unspecified. EDMS 16:57 Isis Martell MD is Hospitalizing Provider. [facility] 19:27 No provider procedures requiring assistance completed. Patient admitted, IV remains in aa1 place. Administered Medications: 17:01 Drug: NS 0.9% 1000 ml Route: IV; Rate: 125 ml/hr; Site: left upper arm; jl7 19:11 Follow up: IV Status: Infusion continued upon admission aa1 Outcome: 16:58 Decision to Hospitalize by Provider. [facility] 19:27 Admitted to Tele accompanied by nurse, via wheelchair, room 209, with chart, Report aa1 called to CHRIS Garcia 19:27 Condition: stable 19:27 Discharge instructions given to patient, Instructed on the need for admit, Demonstrated understanding of instructions. 19:28 Patient left the ED. aa1 Signatures: Dispatcher [employer] EDMS Cass Gilbert RN RN aa1 Peyman Yates MD MD cha Rivera, Toma mr Mckenzie Melgoza RN RN Jone Lubin RN RN la1 Janet Hackett, CHRIS PEREZ jl7 Ekta Mckinnon 3
--- NOTE | 2018-12-20 17:08 | EKG ---
Test Date: 2018-12-20 Test Time: 15:52:46 Doper Operator: PAO MEASUREMENT RESULTS: Intervals: Rate: 76 NJ: 188 QRSD: 76 QT: 390 QTc: 438 [place]: P: 57 NJ: 188 QRS: 32 T: 46 INTERPRETIVE STATEMENTS: Normal sinus rhythm Nonspecific T wave abnormality Abnormal ECG Compared to ECG 12/04/2017 12:21:48 T-wave abnormality now present Prolonged QT interval no longer present Electronically Signed On 12-20-18 17:07:50 CDT by James Niño
[2018-12-20 17:12] LABS: Urine White Blood Cell Casts OK
[2018-12-20 17:13] LABS: Blood Morphology Comment NOTED (NOT SEEN); Hypochromasia 1+; Platelet Estimate DECR; Platelets, Giant PRESENT
[2018-12-20] MEDS ORDERED: ONDANSETRON 4 MG/2 ML VIAL IV PRN (18:29)
[2018-12-20] MEDS ORDERED: ACETAMINOPHEN 500 MG TAB PO PRN (18:29)
[2018-12-20] MEDS ORDERED: MORPHINE 2 MG/ML SYR IV PRN (18:29)
[2018-12-20] MEDS: NA CHLORIDE 0.9% 1,000 ML IV SCH (19:00)
[2018-12-20] MEDS ORDERED: LORAZEPAM 1 MG TABLET PO PRN (19:22)
[2018-12-20] MEDS ORDERED: DIPHENHYDRAMINE 50 MG/ML VIAL IV PRN (19:44)
[2018-12-20] MEDS ORDERED: ACETAMINOPHEN 325 MG TABLET PO PRN (19:44)
[2018-12-20] MEDS: HYDROCODONE/APAP 10/325 TAB PO SCH (20:00)
[2018-12-20 20:41] LABS: Urine Blood 1+ (NEG); Urine Glucose NEGATIVE (NEG); Urine Protein NEGATIVE (NEG); Urine Specific Gravity 1.025 (1.005-1.030); Urine pH 5.5 (5.0-7.0)
[2018-12-20 22:38] LABS: Urine Appearance CLEAR; Urine Bilirubin NEGATIVE (NEG); Urine Blood NEGATIVE (NEG); Urine Color YELLOW; Urine Glucose NEGATIVE (NEG); Urine Microscopic Reflex ORDER UMIC; Urine Protein NEGATIVE (NEG); Urine pH 5.5 (5.0-7.0)
[2018-12-20 22:39] VITALS: BMI 33.0
[2018-12-20 23:52] LABS: Urine Bacteria <20 /HPF (<20); Urine Culture Reflex Order REFLEXED; Urine Mucus 1+ /HPF (NONE SEEN); Urine RBC <5 /HPF (NONE SEEN)
[2018-12-21] MEDS: NA CHLORIDE 0.9% 1,000 ML IV SCH ×2 (02:10→05:00)
[2018-12-21] MEDS: HYDROCODONE/APAP 10/325 TAB PO SCH ×5 (04:00→12:00)
[2018-12-21] MEDS ORDERED: NA CHLORIDE 0.9% 250 ML ONE ×2 (04:07→11:01)
[2018-12-21] MEDS: VENLAFAXINE HCL 37.5 MG TAB PO SCH ×2 (09:00)
[2018-12-21] MEDS: LETROZOLE 2.5 MG TAB PO SCH ×2 (09:00→09:34)
--- NOTE | 2018-12-21 11:31 | P.HP ---
Certification for Inpatient Patient admitted to: Observation With expected LOS: <2 Midnights Patient will require the following post-hospital care: None Practitioner: I am a practitioner with admitting privileges, knowledge of patient current condition, hospital course, and medical plan of care. Services: Services provided to patient in accordance with Admission requirements found in Title 42 Section 412.3 of the Code of Federal Regulations Patient History Date of Service: 12/20/18 Reason for admission: Anemia and leukopenia History of Present Illness: Patient is a 63-year-old female with a history of breast cancer that has spread to the spine in the skull. Patient has been undergoing a cycle of chemotherapy with the a day rest. Patient recently finished chemotherapy a few days ago. She is at [facility]. After receiving her labs today at [facility] she was on her way home. Her oncologist called her and told her that she was anemic and needed to go to the hospital. In the emergency room, ER physician spoke with oncologist and decision to transfuse 2 units of packed red blood cells. Patient does have leukopenia but her absolute neutrophil count is greater than 500. At this time patient will be admitted to the hospital for blood transfusion. Patient should be stable for discharge after transfusions complete. 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 She is . - Family History Father Medical History: Other (see notes) Notes: heart attack Brother Medical History: Cancer Sister Medical History: Other (see notes) Notes: bladder cancer - Social History Smoking Status: Never smoker Alcohol use: No CD- Drugs: No Caffeine use: Yes Place of Residence: Home Review of Systems 10-point ROS is otherwise unremarkable Physical Examination - Vital Signs Temperature: 97.4 F Blood Pressure: 139/82 Pulse: 58 Respirations: 18 Pulse Ox (%): 98 - Physical Exam General: Alert, In no apparent distress, Oriented x3 HEENT: Atraumatic, PERRLA, Mucous membr. moist/pink, EOMI, Sclerae nonicteric Neck: Supple, 2+ carotid pulse no bruit, No LAD, Without JVD or thyroid abnormality Respiratory: Clear to auscultation bilaterally, Normal air movement Cardiovascular: Regular rate/rhythm, Normal S1 S2 Gastrointestinal: Normal bowel sounds, No tenderness Musculoskeletal: No clubbing, No swelling, No tenderness Integumentary: No rashes Neurological: Normal gait, Normal speech, Normal strength at 5/5 x4 extr, Normal tone, Sensation intact, Cranial nerves 3-12 intact, Normal affect Lymphatics: No axilla or inguinal lymphadenopathy - Studies Laboratory Data (last 24 hrs) 12/20/18 16:10: PT 13.0 H, INR 1.11 12/20/18 16:10: WBC 1.1 L*, Hgb 6.5 L*, Hct 18.8 L*, Plt Count 57 L 12/20/18 16:10: Sodium 138, Potassium 3.7, BUN 20 H, Creatinine 0.79, Glucose 144 H, Magnesium 2.3, Total Bilirubin 0.7, AST 32, ALT 44, Alkaline Phosphatase 357 H, Lipase 132 Microbiology Data (last 24 hrs): 12/20/18 16:30 Blood - Blood Anaerobic Blood Culture - Final 12/20/18 16:15 Blood - Blood Anaerobic Blood Culture - Final Assessment & Plan - Problems (Diagnosis) (1) Anemia Current Visit: Yes Status: Acute (2) Leukopenia Current Visit: Yes Status: Acute (3) Breast cancer, stage 4 Onset Date: 12/08/17 Current Visit: No Status: Acute (4) Chronic pain Onset Date: 12/08/17 Current Visit: No Status: Acute - Plan Plan at this time is to transfuse 2 units of packed red blood cells. Will repeat the H&H after the blood transfusion. If patient's blood count is stable the patient should be able to go home after the blood transfusion is complete. Patient will follow-up with her oncologist in 1-2 weeks. Recheck H&H once transfusions completed. Discharge Plan: Home - Advance Directives Does patient have a Living Will: Yes Does patient have a Durable POA for Healthcare: Yes Critical Care: No Time Spent Managing PTS Care (In Minutes): 45
--- NOTE | 2018-12-21 11:37 | P.DS ---
Discharge Date: 12/21/18 Disposition: ROUTINE DISCHARGE Discharge Condition: GOOD Reason for Admission: Anemia and leukopenia - Problems (1) Anemia Status: Acute (2) Leukopenia Status: Acute (3) Breast cancer, stage 4 Onset Date: 12/08/17 Status: Acute (4) Chronic pain Onset Date: 12/08/17 Status: Acute Brief History of Present Illness: Patient is a 63-year-old female with a history of breast cancer that has spread to the spine in the skull. Patient has been undergoing a cycle of chemotherapy with the a day rest. Patient recently finished chemotherapy a few days ago. She is at [facility]. After receiving her labs today at [facility] she was on her way home. Her oncologist called her and told her that she was anemic and needed to go to the hospital. In the emergency room, ER physician spoke with oncologist and decision to transfuse 2 units of packed red blood cells. Patient does have leukopenia but her absolute neutrophil count is greater than 500. At this time patient will be admitted to the hospital for blood transfusion. Patient should be stable for discharge after transfusions complete. Hospital Course: Patient was given 2 units of packed red blood cells. Patient is hemodynamically stable. At this time patient to be discharged and follow with oncologist at [facility]'s. Return to the ER if symptoms worsen. Repeat hemoglobin in 1 week. Vital Signs/Physical Exam: Temp Pulse Resp BP Pulse Ox 97.4 F 58 18 139/82 98 12/21/18 11:31 12/21/18 11:31 12/21/18 11:31 12/21/18 11:31 12/21/18 11:31 General: Alert, In no apparent distress, Oriented x3 Laboratory Data at Discharge: WBC 1.1 K/uL (4.3-10.9) L* 12/20/18 16:10 Hgb 6.5 g/dL (12.0-15.0) L* 12/20/18 16:10 Hct 18.8 % (36.0-45.0) L* 12/20/18 16:10 Plt Count 57 K/uL (152-406) L 12/20/18 16:10 PT 13.0 SECONDS (9.5-12.5) H 12/20/18 16:10 INR 1.11 12/20/18 16:10 Sodium 138 mmol/L (136-145) 10/08/19 16:10 Potassium 3.7 mmol/L (3.5-5.1) 12/20/18 16:10 BUN 20 mg/dL (7-18) H 12/20/18 16:10 Creatinine 0.79 mg/dL (0.55-1.3) 12/20/18 16:10 Glucose 144 mg/dL (74-106) H 12/20/18 16:10 Magnesium 2.3 mg/dL (1.8-2.4) 12/20/18 16:10 Total Bilirubin 0.7 mg/dL (0.2-1.0) 12/20/18 16:10 AST 32 U/L (15-37) 12/20/18 16:10 ALT 44 U/L (12-78) 12/20/18 16:10 Alkaline Phosphatase 357 U/L (45-117) H 12/20/18 16:10 Lipase 132 U/L (73-393) 12/20/18 16:10 Home Medications: Metoclopramide HCl [Reglan] 10 mg PO Q6HP PRN 12/04/17 Venlafaxine HCl [Effexor*] 75 mg PO BEDTIME 12/04/17 Palbociclib [Ibrance] 100 mg PO SEECOM 12/21/18 Patient Discharge Instructions: OK TO DC IV AND DC HOME IF HEMOGLOBIN IS GREATER THAN 8.0. FOLLOW-UP WITH PRIMARY CARE PROVIDER IN 1-2 WEEKS. FOLLOW- UP WITH ONCOLOGY IN 1-2 WEEKS. RETURN TO THE ER IF SYMPTOMS WORSEN. CALL DR. PETTIT AT [phone] IF ANY QUESTIONS REGARDING HOSPITAL STAY. PLEASE CALL THE FLOOR AT [phone] IF ANY MEDICATION OR NURSING QUESTIONS. Diet: Regular Activity: Fall precautions Time spent managing pt's care (in minutes): 30
[2018-12-21] MEDS ORDERED: METOCLOPRAMIDE 5 MG TAB PO PRN (13:18)
[2018-12-21] MEDS ORDERED: PALBOCICLIB 100 MG PO SCH (13:30)
[2018-12-21 14:59] VITALS: BP 113/64; TEMP 97.7
[2018-12-21 15:09] VITALS: O2SAT 98
[2018-12-21 16:05] LABS: Absolute Lymphocytes (CBC) 0.7 K/uL (0.7-4.9); Basophils % 1.2 % (0-1.3); Hematocrit 26.8 % (36.0-45.0); MPV 8.3 fL (7.6-11.3); RBC Red Blood Cell Count 3.04 M/uL (3.86-4.86)
[2018-12-21 16:18] LABS: Albumin 3.2 g/dL (3.4-5.0); Bilirubin Total 0.7 mg/dL (0.2-1.0); Potassium 4.3 mmol/L (3.5-5.1); Protein, Total 6.4 g/dL (6.4-8.2)
[2018-12-21 16:51] LABS: Protime INR 1.09
== END 2018-12-21 17:02 | disposition home or self-care (01) ==
LOC: ER 15:18 → INTOOBSV 18:29 → ERHOLD 18:29 → 2ND 19:25
PROVIDERS: ADMIT Hospitalist; ATTEND Hospitalist
PROC: 30233N1 Transfusion of Nonautologous Red Blood Cells into Peripheral Vein, Percutaneous Approach (ICD-10-PCS; principal; 2018-12-21)
DX: D61.810 Antineoplastic chemotherapy induced pancytopenia (principal); Z85.3 Personal history of malignant neoplasm of breast; C79.51 Secondary malignant neoplasm of bone; C78.00 Secondary malignant neoplasm of unspecified lung
CPT/HCPCS: 96361; 93005; 87040 ×2; 87070; 87088; 85025 ×2; 87086; 80048; 36415; 86900; 83735; 86850; 85610 ×2; 86870; 86901; 80076; 87081; 85730; 85018; 85014; 84484; 83690; 80053; 86922 ×2; 83880; 71045; 96360; 99285; 36430; J1200; P9016 ×2; J7030 ×4; G0378 ×3; 81003; 81015

== ENCOUNTER 2019-01-11 11:02 | Emergency (ER) | payer BC ==
[2019-01-11 12:09] LABS: Absolute Lymphocytes (CBC) 0.9 K/uL (0.7-4.9); Basophils % 2.9 % (0-1.3); Hematocrit 21.6 % (36.0-45.0); MPV 7.8 fL (7.6-11.3); RBC Red Blood Cell Count 2.49 M/uL (3.86-4.86)
[2019-01-11 12:22] LABS: BUN Blood Urea Nitrogen 15 mg/dL (7-18); Bicarbonate 21 mmol/L (21-32); Glucose Level 101 mg/dL (74-106); Potassium 3.9 mmol/L (3.5-5.1); Sodium Level 140 mmol/L (136-145)
[2019-01-11 13:02] LABS: Anisocytosis 1+; Blood Morphology Comment NOTED (NOT SEEN); Macrocytosis 1+; Platelet Estimate DECR; Polychromasia SLIGHT
[2019-01-11] MEDS ORDERED: NA CHLORIDE 0.9% 500 ML ONE (21:41)
[2019-01-11] MEDS ORDERED: DIPHENHYDRAMINE 50 MG/ML VIAL ONE (21:43)
[2019-01-11] MEDS ORDERED: ACETAMINOPHEN 325 MG TABLET ONE (21:43)
--- NOTE | 2019-01-12 03:35 | EDPHYS ---
Physician Documentation [facility] Name: Esther Nichole Age: 63 yrs Sex: Female : 1955 Arrival Date: 01/11/2019 Time: 11:04 Bed 30 Private MD: Adrian Juarez B ED Physician Peyman Yates HPI: 01/11 11:44 This 63 yrs old Female presents to ER via Wheelchair with complaints of jr8 Shortness Of Breath. 11:44 The patient has shortness of breath with light activity. Onset: The symptoms/episode jr8 began/occurred 3 day(s) ago. Duration: The symptoms are continuous. The patient's shortness of breath is aggravated by light activity. Associated signs and symptoms: Pertinent negatives: chest pain, non-productive cough, diaphoresis, dizziness, vomiting. Severity of symptoms: At their worst the symptoms were moderate in the emergency department the symptoms are unchanged. pt reports she has been anemic recently and feeling progressively SOB over the course of the last few days. Historical: - Allergies: 11:13 No Known Allergies; aa5 - PMHx: 11:13 Cancer, Breast; neurofibromatosis; St 4 metastatic right breast cancer; aa5 - Immunization history:: Adult Immunizations unknown. - Social history:: Smoking status: Patient/guardian denies using tobacco. - Ebola Screening: : No symptoms or risks identified at this time. ROS: 11:46 Constitutional: Negative for fever, chills, and weight loss, Eyes: Negative for injury, jr8 pain, redness, and discharge, ENT: Negative for injury, pain, and discharge, Neck: Negative for injury, pain, and swelling, Cardiovascular: Negative for chest pain, palpitations, and edema, Respiratory: Negative for shortness of breath, cough, wheezing, and pleuritic chest pain, Abdomen/GI: Negative for abdominal pain, nausea, vomiting, diarrhea, and constipation, Back: Negative for injury and pain, MS/Extremity: Negative for injury and deformity. 11:46 Skin: Positive for pallor. Exam: 11:46 Constitutional: This is a well developed, well nourished patient who is awake, alert, jr8 and in no acute distress. Head/Face: Normocephalic, atraumatic. Eyes: Pupils equal round and reactive to light, extra-ocular motions intact. Lids and lashes normal. Conjunctiva and sclera are non-icteric and not injected. Cornea within normal limits. Periorbital areas with no swelling, redness, or edema. ENT: Mucous membranes pale Chest/axilla: normal chest wall movement Cardiovascular: Regular rate and rhythm with a normal S1 and S2. No gallops, murmurs, or rubs. Normal PMI, no JVD. No pulse deficits. Respiratory: Lungs have equal breath sounds bilaterally, clear to auscultation and percussion. No rales, rhonchi or wheezes noted. No increased work of breathing, no retractions or nasal flaring. Abdomen/GI: Soft, non-tender, with normal bowel sounds. No distension or tympany. No guarding or rebound. No evidence of tenderness throughout. Skin: Warm, dry with normal turgor. pale color with no rashes, no lesions, and no evidence of cellulitis. Vital Signs: 11:13 BP 98 / 75; Pulse 103; Resp 18 S; Temp 97.6(TE); Pulse Ox 100% on R/A; Weight 82.55 kg aa5 (R); Height 5 ft. 3 in. (160.02 cm) (R); Pain 0/10; 12:34 BP 116 / 74; Pulse 79; Resp 17; Pulse Ox 100% ; bp 14:01 BP 107 / 70; Pulse 86; Resp 15; Pulse Ox 100% ; bp 14:49 BP 114 / 70; Pulse 89; Resp 15; Pulse Ox 100% on R/A; rv 16:30 BP 102 / 51; Pulse 80; Resp 16; Pulse Ox 100% on R/A; rv 19:18 BP 106 / 64; Pulse 80; Resp 16; Pulse Ox 100% on R/A; rv 22:00 BP 107 / 65; Pulse 90; Resp 18; Temp 98; Pulse Ox 100% on R/A; rv 22:24 BP 126 / 78; Pulse 97; Resp 18; Pulse Ox 100% on R/A; mg2 01/12 00:00 BP 115 / 71; Pulse 76; Resp 17; Temp 97.9; Pulse Ox 100% on R/A; rv 01:30 BP 120 / 66; Pulse 69; Resp 16; Pulse Ox 100% on R/A; rv 02:02 BP 106 / 63; Pulse 66; Resp 20 S; Pulse Ox 98% on R/A; bb 03:41 BP 121 / 77; Pulse 76; Resp 14 S; Temp 98.4(O); Pulse Ox 98% on R/A; bb 06:23 BP 123 / 63; Pulse 74; Resp 16 S; Pulse Ox 99% on R/A; bb 07:16 BP 122 / 73; Pulse 73; Resp 16 S; Temp 97.8(O); Pulse Ox 98% on R/A; bb 01/11 11:13 Body Mass Index 32.24 (82.55 kg, 160.02 cm) aa5 MDM: 01/11 11:39 Patient medically screened. [facility] 13:37 Data reviewed: vital signs, nurses notes, lab test result(s). Data interpreted: Pulse jr8 oximetry: on room air is 100 %. Interpretation: normal. Counseling: I had a detailed discussion with the patient and/or guardian regarding: the historical points, exam findings, and any diagnostic results supporting the discharge/admit diagnosis, lab results. ED course: Patient needs blood transfusion. Has antibodies and will take several hours to get to blood. Will obs in ER for now an through transfusion . 01/12 02:29 Transition of care: After a detail discussion of the patient's case, care is snw transferred to Richy Johnson MD. 07:10 ED course: The patient is currently stable in the ED and without any c/o. I explained kdr the results of her lab/rad tests and she was without any other questions or concerns. She was advised to follow-up with her PCP for further eval or return for worsening s/s. 01/11 11:40 Order name: CBC with Diff; Complete Time: 13:10 8 01/11 11:40 Order name: Basic Metabolic Panel; Complete Time: 12:44 8 01/11 11:40 Order name: T\T\S jr8 01/11 12:47 Order name: Bb Add On 8 01/11 12:59 Order name: Manual Differential; Complete Time: 13:10 EDMD 01/11 13:09 Order name: Antibody Identification EDMD 01/11 15:12 Order name: Diet Heart Healthy; Complete Time: 15:12 rv 01/11 21:09 Order name: Packed RBC Leukored EDMD 01/12 00:33 Order name: Hematocrit; Complete Time: 03:45 rv 01/12 00:33 Order name: Hemoglobin; Complete Time: 03:45 rv 01/12 04:47 Order name: Chest For Pe Angio EDMD 01/12 04:47 Order name: Chest Single View EDMD 01/11 11:40 Order name: IV; Complete Time: 12:00 jr8 01/11 12:44 Order name: Transfuse; Complete Time: 02:05 jr8 Administered Medications: No medications were administered Disposition: 01/12/19 03:34 Discharged to Home. Impression: Anemia in neoplastic disease. - Condition is Stable. - Discharge Instructions: Anemia, Nonspecific, Blood Transfusion, Adult, Blood Transfusion, Adult, Care After. - Medication Reconciliation Form, Thank You Letter, Antibiotic Education, Prescription Opioid Use form. - Follow up: Adrian Juarez; When: 1 - 2 days; Reason: Recheck today's complaints, Continuance of care, Re-evaluation by your physician. Follow up: Emergency Department; When: As needed; Reason: Worsening of condition. Addendum: 01/13/2019 08:45 Co-signature as Attending Physician, Peyman Yates MD I agree with the assessment and c ortiz plan of care. Signatures: Dispatcher [employer] [facility] Peyman Yates MD MD cha Rittger, Kevin, MD MD [facility] Dianne Rivera, SUPERVISING BAILIFF-C SUPERVISING BAILIFF-Csnw Dia Childers, CHRIS RN aa5 Cristino Remy PA PA jr8 Richy Johnson MD MD tw4 Aide Antonio Ronaldo, RN RN rv Corrections: (The following items were deleted from the chart) 01/12 05:45 05:32 Chest Single View+RAD.RAD.BRZ ordered. EDMD EDMD 05:45 05:32 Chest For PE Angio+CT.RAD.BRZ ordered. [facility] EDMD 07:40 03:34 01/12/2019 03:34 Discharged to Home. Impression: Anemia in neoplastic disease. eb Condition is Stable. Discharge Instructions: Anemia, Nonspecific, Blood Transfusion, Adult, Blood Transfusion, Adult, Care After. Forms are Medication Reconciliation Form, Thank You Letter, Antibiotic Education, Prescription Opioid Use. Follow up: Adrian Juarez; When: 1 - 2 days; Reason: Recheck today's complaints, Continuance of care, Re-evaluation by your physician. Follow up: Emergency Department; When: As needed; Reason: Worsening of condition. tw4
--- NOTE | 2019-01-12 03:35 | ER ---
Nurse's Notes [facility] Name: Esther Nichole Age: 63 yrs Sex: Female : 1955 Arrival Date: 01/11/2019 Time: 11:04 Bed 30 Private MD: Adrian Juarez B Diagnosis: Anemia in neoplastic disease Presentation: 01/11 11:12 Presenting complaint: Patient states: SOB. Pt states "I probably need a blood aa5 transfusion because my hemoglobin was low a few weeks ago". pt reports hx of breast cancer and last chemo was 2 weeks ago. Transition of care: patient was not received from another setting of care. Onset of symptoms was December 2018. Risk Assessment: Do you want to hurt yourself or someone else? Patient reports no desire to harm self or others. Initial Sepsis Screen: Does the patient meet any 2 criteria? HR > 90 bpm. Does the patient have a suspected source of infection? No. Patient's initial sepsis screen is negative. Care prior to arrival: None. 11:12 Acuity: KAMILAH 2 aa5 11:12 Method Of Arrival: Wheelchair aa5 Triage Assessment: 11:15 General: Appears in no apparent distress. comfortable, Behavior is cooperative, bp appropriate for age, anxious. Pain: Denies pain. EENT: No deficits noted. Neuro: No deficits noted. Cardiovascular: No deficits noted. Respiratory: Reports shortness of breath at rest Onset: The symptoms/episode began/occurred at an unknown time. the patient has mild shortness of breath. GI: No signs and/or symptoms were reported involving the gastrointestinal system. : No signs and/or symptoms were reported regarding the genitourinary system. Derm: Skin is pale. Musculoskeletal: No deficits noted. Historical: - Allergies: 11:13 No Known Allergies; aa5 - PMHx: 11:13 Cancer, Breast; neurofibromatosis; St 4 metastatic right breast cancer; aa5 - Immunization history:: Adult Immunizations unknown. - Social history:: Smoking status: Patient/guardian denies using tobacco. - Ebola Screening: : No symptoms or risks identified at this time. Screenin:32 Abuse screen: Denies threats or abuse. Denies injuries from another. Nutritional bp screening: No deficits noted. Tuberculosis screening: No symptoms or risk factors identified. Fall Risk None identified. Assessment: 11:15 General: SEE TRIAGE NOTE. Cardiovascular: Rhythm is sinus tachycardia. Respiratory: bp Airway is patent Respiratory effort is even, unlabored, Breath sounds are clear bilaterally. 13:25 Reassessment: PER BLOOD BANK, TRANSFUSION ON HOLD FOR ANTIBODY MATCHING. bp 14:30 Reassessment: REPORT TO HERMES PEREZ. PT MOVED TO TR30. bp 14:47 Reassessment: received patient from CHRIS Menchaca. patient is for blood transfusion but rv will take time to acquire blood product because of antibody. explained to the patient and patient agreed to stay here in the ED, and wait for the blood transfusion. 16:31 Reassessment: Patient appears in no apparent distress at this time. Patient and/or rv family updated on plan of care and expected duration. Pain level reassessed. Patient is alert, oriented x 3, equal unlabored respirations, skin warm/dry/pink. General: Appears in no apparent distress. comfortable, Behavior is calm, cooperative. Pain: Denies pain. 18:31 Reassessment: Still awaiting blood products for transfusion to begin. ss 19:17 Reassessment: Patient appears in no apparent distress at this time. Patient and/or rv family updated on plan of care and expected duration. Pain level reassessed. Patient is alert, oriented x 3, equal unlabored respirations, skin warm/dry/pink. still waiting for the blood product for transfusion. patient is [facility], still uncertain of waiting time for the unit. updated CN and Provider. General: Appears in no apparent distress. comfortable, Behavior is calm, cooperative. 22:55 Reassessment: Patient appears in no apparent distress at this time. Patient and/or rv family updated on plan of care and expected duration. Pain level reassessed. Patient is alert, oriented x 3, equal unlabored respirations, skin warm/dry/pink. blood transfusion started at 2200. blood checking done with Ramírez PEREZ. 01/12 00:23 Reassessment: Patient appears in no apparent distress at this time. Patient and/or rv family updated on plan of care and expected duration. Pain level reassessed. Patient is alert, oriented x 3, equal unlabored respirations, skin warm/dry/pink. Reassessment: blood transfusion done. patient shows no signs of reaction at this moment. for repeat CBC post transfusion. General: Appears in no apparent distress. comfortable, Behavior is calm, cooperative. 02:01 Reassessment: pt appears to be sleeping, eyes closed, resp unlabored, no signs of bb distress noted, awaiting repeat H\\T\\H prior to discharge. 02:32 Reassessment: Patient is alert, oriented x 3, equal unlabored respirations, skin bb warm/dry/pink. repeat H\\T\\H drawn and sent to lab. 03:40 Reassessment: Patient is alert, oriented x 3, equal unlabored respirations, skin bb warm/dry/pink. pt states she is unable to have her daughter pick her up until approx 0700. Pt verbalized understanding of and agrees to plan of care discharge instructions given pt will wait in room until ride is available. 03:50 Reassessment: pt states she is still feeling short of breath notified Dr Johnson bb diagnostics ordered. 06:22 Reassessment: pt resting quietly, A\\T\\O x 4, resp unlabored, awaiting diagnostic results bb prior to discharge. 07:17 Reassessment: Patient is alert, oriented x 3, equal unlabored respirations, skin bb warm/dry/pink. Dr Colunga at bedside for discussion of latest findings and recommendations pt to be discharged home and follow-up with PCP for further evaluation and treatment. Pt verbalized understanding of and agrees to plan of care. Pt is awaiting arrival of her daughter for transportation home. Vital Signs: 01/11 11:13 BP 98 / 75; Pulse 103; Resp 18 S; Temp 97.6(TE); Pulse Ox 100% on R/A; Weight 82.55 kg aa5 (R); Height 5 ft. 3 in. (160.02 cm) (R); Pain 0/10; 12:34 BP 116 / 74; Pulse 79; Resp 17; Pulse Ox 100% ; bp 14:01 BP 107 / 70; Pulse 86; Resp 15; Pulse Ox 100% ; bp 14:49 BP 114 / 70; Pulse 89; Resp 15; Pulse Ox 100% on R/A; rv 16:30 BP 102 / 51; Pulse 80; Resp 16; Pulse Ox 100% on R/A; rv 19:18 BP 106 / 64; Pulse 80; Resp 16; Pulse Ox 100% on R/A; rv 22:00 BP 107 / 65; Pulse 90; Resp 18; Temp 98; Pulse Ox 100% on R/A; rv 22:24 BP 126 / 78; Pulse 97; Resp 18; Pulse Ox 100% on R/A; mg2 01/12 00:00 BP 115 / 71; Pulse 76; Resp 17; Temp 97.9; Pulse Ox 100% on R/A; rv 01:30 BP 120 / 66; Pulse 69; Resp 16; Pulse Ox 100% on R/A; rv 02:02 BP 106 / 63; Pulse 66; Resp 20 S; Pulse Ox 98% on R/A; bb 03:41 BP 121 / 77; Pulse 76; Resp 14 S; Temp 98.4(O); Pulse Ox 98% on R/A; bb 06:23 BP 123 / 63; Pulse 74; Resp 16 S; Pulse Ox 99% on R/A; bb 07:16 BP 122 / 73; Pulse 73; Resp 16 S; Temp 97.8(O); Pulse Ox 98% on R/A; bb 01/11 11:13 Body Mass Index 32.24 (82.55 kg, 160.02 cm) aa5 ED Course: 01/11 11:04 Patient arrived in ED. mr 11:04 Adrian Juarez MD is Private Physician. mr 11:12 Arm band placed on. aa5 11:13 Triage completed. aa5 11:30 Nikolai Headley, CHRIS is Primary Nurse. bp 11:32 Patient has correct armband on for positive identification. Bed in low position. Call bp light in reach. Side rails up X2. 11:39 Cristino Remy PA is PHCP. jr8 11:39 Peyman Yates MD is Attending Physician. jr8 13:00 Inserted saline lock: 20 gauge in left antecubital area, using aseptic technique. Blood bp collected. 15:00 monitor car operator on. Pulse ox on. NIBP on. rv 15:00 Door closed. Lights dimmed. Moved to private room. Warm blanket given. Pillow given. rv Diet tray ordered. Diet tray given. 15:11 Keith Hauser, CHRIS is Primary Nurse. rv 18:48 PHCP role handed off by Cristino Remy PA snw 18:48 Dianne Rivera FNP-C is PHCP. snw 01/12 02:33 Repeat lab(s) drawn. by me, sent to lab. bb 03:34 Adrian Juarez MD is Referral Physician. tw4 03:42 No provider procedures requiring assistance completed. bb 05:16 Chest Single View In Process Unspecified. EDMS 05:46 CT completed. Patient tolerated procedure well. Patient moved to CT via stretcher. Patient moved back from CT. 06:07 Chest For Pe Angio In Process Unspecified. EDMS 07:16 IV discontinued, intact, bleeding controlled, No redness/swelling at site. Pressure bb dressing applied. Administered Medications: No medications were administered Outcome: 03:34 Discharge ordered by MD. tw4 03:42 Discharged to home with family. bb 03:42 Condition: stable 03:42 Discharge instructions given to patient, Instructed on discharge instructions, follow up and referral plans. Demonstrated understanding of instructions, follow-up care. 07:40 Patient left the ED. eb Signatures: Dispatcher [employer] EDMS Dianne Rivera, PASTEURIZER-C PASTEURIZER-Csnw Fabrice Winston Boyd Alison Vo, RN RN bb Dia Childers, RN RN aa5 Mckenzie Melgoza RN RN ss Cristino Remy PA PA jr8 Nikolai Headley RN RN bp Wadley, Terrence, MD MD tw4 Aide Antonio Michele, RN RN mg2 Keith Hauser RN RN rv Corrections: (The following items were deleted from the chart) 01:30 01:00 BP 120 / 66; Pulse 69bpm; Resp 16bpm; Pulse Ox 100% RA; rv rv 03:43 03:41 BP 121 / 77; Pulse 14bpm; Resp 14bpm; Spontaneous; Pulse Ox 98% RA; Temp 98.4F bb Oral; bb
[2019-01-12 08:06] VITALS: BP 122/73; TEMP 97.8; O2SAT 98
--- NOTE | 2019-01-12 08:57 | RAD REPORT ---
EXAM DESCRIPTION: Олег Single View01/12/2019 5:16 am CLINICAL HISTORY: Shortness of breath COMPARISON: December 20, 2018 FINDINGS: Mild right basilar atelectasis Left lung appears clear of acute infiltrate. The heart is mildly enlarged
--- NOTE | 2019-01-12 10:40 | RAD REPORT ---
EXAM DESCRIPTION: CT - Chest For Pe Angio - 01/12/2019 6:54 am CLINICAL HISTORY: SOB TECHNIQUE: Axial computed tomographic angiography images of the chest with intravenous contrast. S agittal and coronal reformatted images were created and reviewed. This CT exam was performed using one or more of the following dose reduction techniques: automated exposure control, adjustment of t he mA and/or kV according to patient size, and/or use of iterative reconstruction technique. MIP re constructed images were created and reviewed. COMPARISON: No relevant prior studies available. FINDINGS: Limitations: None. Pulmonary arteries: Unremarkable. No pulmonary embolism. Aorta: No acute findings. No thoracic aortic aneurysm. Lungs: There are zones of groundglass opacity suggestive of pneumonitis or pulmonary edema. There is mild scarring in the right lower lobe. Pleural space: Unremarkable. No significant effusion. No pneumothorax. Heart: Unremarkable. No cardiomegaly. No significant pericardial effusion. No evidence of RV dysfunction. Thyroid: Approximate 1.7 cm diameter homogeneously low dense left thyroid nodule noted. Bones/joints: There is extensive osseous metastases throughout all the visualized osseous struct ures. No acute fracture. No dislocation. Soft tissues: Unremarkable. Lymph nodes: Unremarkable. No enlarged lymph nodes. Liver: Multiple hepatic metastases present. IMPRESSION: 1. No pulmonary embolus noted. 2. There are zones of groundglass opacity suggestive of pneumonitis or pulmonary edema. 3. Multiple hepatic metastases present. 4. There is extensive osseous metastases throughout all the visualized osseous structures. 5. Left thyroid nodule. ACR White Paper guidelines (Michael JK, et al. JACR 2015;12(2):143-50) sugg est further evaluation with thyroid ultrasound. Electronically signed by: Leonila Swan MD 01/12/2019 6:47 AM CDT Due to temporary technical issues with the PACS/Fluency reporting system, reports are being signed by the in house radiologist as a courtesy to ensure prompt reporting. The interpreting radiologist is f ully responsible for the content of the report.
== END 2019-01-12 07:40 | disposition home or self-care (01) ==
LOC: ER 11:02
PROC: 30233N1 Transfusion of Nonautologous Red Blood Cells into Peripheral Vein, Percutaneous Approach (ICD-10-PCS; principal; 2019-01-12)
DX: D63.0 Anemia in neoplastic disease (principal)
CPT/HCPCS: 85025; 80048; 36415; 86900; 86850; 86870; 86901; 85018; 85014; 86922 ×2; 71275; 71045; 99285; 36430; Q9967; J1200; P9016; J7040

== ENCOUNTER 2019-01-17 08:04 | Emergency (ER) | payer BC ==
--- NOTE | 2019-01-17 08:49 | RAD REPORT ---
EXAM DESCRIPTION: CT - Head C Spine Mpr Wo Con - 01/17/2019 8:24 am CLINICAL HISTORY: Head and neck injury status post fall. Head and neck pain TECHNIQUE: Computed axial tomography of the head and cervical spine was obtained. Sagittal and coronal reconstruction was performed. All CT scans are performed using dose optimization technique as appropriate and may include automated exposure control or mA/KV adjustment according to patient size. FINDINGS: A left frontal scalp hematoma. Small acute subdural hematoma along the left frontal convex ity. No significant mass effect. The ventricles are normal caliber. No fluid within the sinuses/masto ids A cervical fracture is not visualized. No dislocation is noted. The patient has known bony metastases Postsurgical changes involve the upper cervical spine. A 3 centimeter fluid collection posterior to s jacqueline canal at C2 and C3 likely postsurgical in nature perhaps a relatively old hematoma 19 millimeter left thyroid nodule. IMPRESSION: Small acute subdural hematoma along the left frontal convexity A cervical fracture is not visualized. Exam discussed with Dr Colunga 8:33 a.m. January 17, 2019
[2019-01-17] MEDS ORDERED: ONDANSETRON 4 MG/2 ML VIAL ONE (08:50)
--- NOTE | 2019-01-17 09:21 | EDPHYS ---
Physician Documentation [facility] Name: Esther Nichole Age: 63 yrs Sex: Female : 1955 Arrival Date: 01/17/2019 Time: 08:08 Bed 4 Private MD: ED Physician Montana Colunga HPI: 01/17 08:55 This 63 yrs old Female presents to ER via EMS with complaints of Syncope, kdr Head Injury-Adult. 08:55 The patient has experienced syncope, collapsed. Onset: The symptoms/episode kdr began/occurred acutely, suddenly, just prior to arrival. Duration: This was a single episode, that lasted an unknown period of time. Context: occurred at home, occurred while the patient was getting up from bed, standing, walking. Associated injury: Head/face: left side of the back of head and left temporal area. Associated signs and symptoms: The patient has no apparent associated signs or symptoms. Current symptoms: Currently, the patient is not experiencing any symptoms, the patient feels back to baseline, no decreased level of consciousness, no confusion, no dysphasia, no paralysis, no visual changes. The patient has not experienced similar symptoms in the past. The patient states that she had been increasing SOB this last week and was going to go to [facility] this morning - she has Stage 4 breast CA - to get evaluated. When she stood up, she passed out hitting her head on the floor. . Historical: - Allergies: 08:11 No Known Allergies; sv - PMHx: 08:11 Cancer, Breast; neurofibromatosis; St 4 metastatic right breast cancer; sv - Immunization history:: Adult Immunizations unknown. - Immunization history: Last tetanus immunization: unknown. - Ebola Screening: : No symptoms or risks identified at this time. - Social history:: Smoking status: Patient/guardian denies using tobacco. ROS: 08:55 Constitutional: Negative for fever, chills, and weight loss, Eyes: Negative for injury, kdr pain, redness, and discharge, ENT: Negative for injury, pain, and discharge, Neck: Negative for injury, pain, and swelling, Cardiovascular: Negative for chest pain, palpitations, and edema, Abdomen/GI: Negative for abdominal pain, nausea, vomiting, diarrhea, and constipation, Back: Negative for injury and pain, : Negative for injury, bleeding, discharge, and swelling, MS/Extremity: Negative for injury and deformity, Skin: Negative for injury, rash, and discoloration, Psych: Negative for depression, anxiety, suicide ideation, homicidal ideation, and hallucinations, Allergy/Immunology: Negative for hives, rash, and allergies, Endocrine: Negative for neck swelling, polydipsia, polyuria, polyphagia, and marked weight changes, Hematologic/Lymphatic: Negative for swollen nodes, abnormal bleeding, and unusual bruising. 08:55 Respiratory: Positive for dyspnea on exertion, shortness of breath, on exertion. 08:55 Neuro: Positive for loss of consciousness, syncope. Exam: 08:55 Constitutional: This is a well developed, well nourished patient who is awake, alert, kdr and in no acute distress. Eyes: Pupils equal round and reactive to light, extra-ocular motions intact. Lids and lashes normal. Conjunctiva and sclera are non-icteric and not injected. Cornea within normal limits. Periorbital areas with no swelling, redness, or edema. Neck: Trachea midline, no thyromegaly or masses palpated, and no cervical lymphadenopathy. Supple, full range of motion without nuchal rigidity, or vertebral point tenderness. No Meningismus. Chest/axilla: Normal chest wall appearance and motion. Nontender with no deformity. No lesions are appreciated. Cardiovascular: Regular rate and rhythm with a normal S1 and S2. No gallops, murmurs, or rubs. Normal PMI, no JVD. No pulse deficits. Respiratory: Lungs have equal breath sounds bilaterally, clear to auscultation and percussion. No rales, rhonchi or wheezes noted. No increased work of breathing, no retractions or nasal flaring. Abdomen/GI: Soft, non-tender, with normal bowel sounds. No distension or tympany. No guarding or rebound. No evidence of tenderness throughout. Back: No spinal tenderness. No costovertebral tenderness. Full range of motion. Skin: Warm, dry with normal turgor. Normal color with no rashes, no lesions, and no evidence of cellulitis. MS/ Extremity: Pulses equal, no cyanosis. Neurovascular intact. Full, normal range of motion. Neuro: Awake and alert, GCS 15, oriented to person, place, time, and situation. Cranial nerves II-XII grossly intact. Motor strength 5/5 in all extremities. Sensory grossly intact. Cerebellar exam grossly normal. Psych: Awake, alert, with orientation to person, place and time. Behavior, mood, and affect are within normal limits. Vital Signs: 08:12 BP 122 / 51; Pulse 70; Resp 18; Temp 98.2; Pulse Ox 100% ; Weight 82.55 kg; Height 5 sv ft. 3 in. (160.02 cm); Pain 0/10; 08:50 BP 99 / 57; Pulse 66; Resp 18; Temp 98; Pulse Ox 100% ; sv 10:23 BP 101 / 69; Pulse 78; Resp 18; Pulse Ox 100% on R/A; ph 11:15 BP 102 / 66; Pulse 79; Resp 18; Pulse Ox 98% ; sv 08:12 Body Mass Index 32.24 (82.55 kg, 160.02 cm) sv Janeth Coma Score: 08:12 Eye Response: spontaneous(4). Verbal Response: oriented(5). Motor Response: obeys sv commands(6). Total: 15. 09:10 Eye Response: spontaneous(4). Verbal Response: oriented(5). Motor Response: obeys ph commands(6). Total: 15. 10:23 Eye Response: spontaneous(4). Verbal Response: oriented(5). Motor Response: obeys ph commands(6). Total: 15. Trauma Score (Adult): 08:12 Eye Response: spontaneous(1); Verbal Response: oriented(1); Motor Response: obeys sv commands(2); Systolic BP: > 89 mm Hg(4); Respiratory Rate: 10 to 29 per min(4); Janeth Score: 15; Trauma Score: 12 09:10 Eye Response: spontaneous(1); Verbal Response: oriented(1); Motor Response: obeys ph commands(2); Systolic BP: > 89 mm Hg(4); Respiratory Rate: 10 to 29 per min(4); Collinston Score: 15; Trauma Score: 12 10:23 Eye Response: spontaneous(1); Verbal Response: oriented(1); Motor Response: obeys ph commands(2); Systolic BP: > 89 mm Hg(4); Respiratory Rate: 10 to 29 per min(4); Collinston Score: 15; Trauma Score: 12 MDM: 09:20 Patient medically screened. kdr 09:20 Data reviewed: vital signs, nurses notes. Counseling: I had a detailed discussion with kdr the patient and/or guardian regarding: the historical points, exam findings, and any diagnostic results supporting the discharge/admit diagnosis, lab results, radiology results, the need to transfer to another facility. 01/17 08:17 Order name: Basic Metabolic Panel [facility] 01/17 08:17 Order name: CBC with Diff [facility] 01/17 08:17 Order name: LFT's [facility] 01/17 08:17 Order name: Magnesium [facility] 01/17 08:17 Order name: NT PRO-BNP [facility] 01/17 08:18 Order name: PT-INR [facility] 01/17 08:17 Order name: CT Head C Spine; Complete Time: 09:20 [facility] 01/17 08:18 Order name: Troponin (emerg Dept Use Only) [facility] 01/17 08:18 Order name: XRAY Chest (1 view) [facility] 01/17 08:18 Order name: EKG; Complete Time: 08:20 [facility] 01/17 08:25 Order name: Type And Screen 01/17 10:19 Order name: Antibody Identification [facility] 01/17 10:46 Order name: Manual Differential [facility] 01/17 08:18 Order name: Cardiac monitoring; Complete Time: 08:25 [facility] 01/17 08:18 Order name: EKG - Nurse/Tech; Complete Time: 09:29 [facility] 01/17 08:18 Order name: IV Saline Lock; Complete Time: 09:29 [facility] 01/17 08:18 Order name: Labs collected and sent; Complete Time: 09:29 [facility] 01/17 08:18 Order name: O2 Per Protocol; Complete Time: 08:25 [facility] 01/17 08:18 Order name: O2 Sat Monitoring; Complete Time: 08:25 kdr Administered Medications: 09:00 Drug: Zofran 4 mg Route: IVP; Site: left hand; ph 10:24 Follow up: Response: No adverse reaction; Nausea is decreased ph Disposition: 01/17/19 09:20 Transfer ordered to [facility]. Diagnosis is Syncope, SOB, 5 mm left subdural bleed. - Reason for transfer: Higher level of care. - Accepting physician is Medicine MD. - Condition is Fair. - Problem is new. - Symptoms are unchanged. Signatures: Dispatcher [facility] Halle Pineda RN RN Montana Watts MD MD kdr Bia Patterson, RN RN ph Corrections: (The following items were deleted from the chart) 11:31 09:20 01/17/2019 09:20 Transfer ordered to [facility]. sv Diagnosis is Syncope, SOB, 5 mm left subdural bleed. Reason for transfer: Higher level of care. Accepting physician is Medicine MD. Condition is Fair. Problem is new. Symptoms are unchanged. kdr
--- NOTE | 2019-01-17 09:21 | ER ---
Nurse's Notes [facility] Name: Esther Nichole Age: 63 yrs Sex: Female : 1955 Arrival Date: 01/17/2019 Time: 08:08 Bed 4 Private MD: Diagnosis: Syncope, SOB, 5 mm left subdural bleed Presentation: 01/17 08:09 Presenting complaint: EMS states: Pt hx of stage 4 breast cancer, reports increasing ph weakness over the past few days, this morning was going to go to [facility] to be seen but had syncopal episode and fall, head laceration sustained to back of head, orthostatic + w/ systolic 102 that dropped to 68 upon sitting pt up to wrap head wound. Transition of care: patient was not received from another setting of care. Onset of symptoms was January 17, 2019. Risk Assessment: Do you want to hurt yourself or someone else? Patient reports no desire to harm self or others. Initial Sepsis Screen: Does the patient meet any 2 criteria? No. Patient's initial sepsis screen is negative. Does the patient have a suspected source of infection? No. Patient's initial sepsis screen is negative. 08:09 Method Of Arrival: EMS: [facility] 08:09 Acuity: KAMILAH 2 ph 08:13 Risk Assessment: Do you want to hurt yourself or someone else? Patient reports no sv desire to harm self or others. 08:13 Care prior to arrival: Medication(s) given: Normal saline infusion, 650 mL IV ph initiated. 22 GA, in the left hand. 08:14 Mechanism of Injury: Fall from standing position. Trauma event details: Injury occurred ph in the [facility], Injury occurred: at home. Injury occurred: January 17, 2019. Trauma Activation: Alert Physician: ED Physician; Name: ; Notified At: ; Arrived At: Physician: General Surgeon; Name: ; Notified At: ; Arrived At: Physician: Radiology; Name: ; Notified At: ; Arrived At: Physician: Respiratory; Name: ; Notified At: ; Arrived At: Physician: Lab; Name: ; Notified At: ; Arrived At: Historical: - Allergies: 08:11 No Known Allergies; sv - PMHx: 08:11 Cancer, Breast; neurofibromatosis; St 4 metastatic right breast cancer; sv - Immunization history:: Adult Immunizations unknown. - Immunization history: Last tetanus immunization: unknown. - Ebola Screening: : No symptoms or risks identified at this time. - Social history:: Smoking status: Patient/guardian denies using tobacco. Screenin:13 Abuse screen: Denies threats or abuse. Denies injuries from another. Tuberculosis sv screening: No symptoms or risk factors identified. 08:13 Nutritional screening: No deficits noted. sv 09:32 Fall Risk Fall in past 12 months (25 points). No secondary diagnosis (0 pts). IV access ph (20 points). Ambulatory Aid- None/Bed Rest/Nurse Assist (0 pts). Gait- Weak (10 pts.). Mental Status- Oriented to own ability (0 pts). Total [place] Fall Scale indicates Low Risk Score (25-44 pts). Fall prevention measures have been instituted. Side Rails Up X 2 Placed close to Nursing Station Frequent Obs/Assesments occuring Family Present and informed to notify staff if they need to leave bedside As available Patient and Family Educated on Fall Prevention Program and strategies. Primary Survey: 08:15 NO uncontrolled hemorrhage observed. A: The patient is alert. Airway: patent, No ph supplemental oxygen in use on arrival. Oral cavity: clear, Trachea midline. Breathing/Chest: Respiratory pattern: regular, Respiratory effort: spontaneous, unlabored, Chest inspection: symmetrical rise and fall of the chest. Circulation: Pulses: palpable right radial artery and left radial artery. Disability Alert. Exposure/Environment: All clothing and personal items were removed. Forensic evidence collection is not deemed to be indicated at this time. Items placed in patient belonging bag. 11:30 Reassessment Airway Airway Patent Oxygen No O2 Oral cavity Clear Breathing/Chest ph Respiratory effort Spontaneous Unlabored Breath sounds Clear Chest inspection Symmetrical Disability Alert. Secondary Survey: 09:30 HEENT: Head Other laceration to back of head. Gastrointestinal: No deficits noted. ph Musculoskeletal: Circulation, motion, and sensation intact. Range of motion: intact in all extremities. Assessment: 08:11 Reassessment: Trauma alert called. sv 08:23 Reassessment: Informed Dr Colunga pt had a blood transfusion last week and considering sv the reason for visit today if we could add a T\\T\\S, ok by him. 08:30 General: Appears in no apparent distress. comfortable, Behavior is calm, cooperative, ph appropriate for age. Pain: Denies pain. Neuro: Level of Consciousness is awake, alert, obeys commands, Oriented to person, place, time, situation, Reports dizziness, a syncopal episode weakness "all over". Cardiovascular: Capillary refill < 3 seconds in bilateral fingers. Respiratory: Airway is patent Respiratory effort is even, unlabored, Respiratory pattern is regular, symmetrical. GI: Reports nausea, Patient currently denies abdominal pain. Derm: Skin is fragile, is thin, Skin is pale, Skin temperature is cool. Musculoskeletal: Circulation, motion, and sensation intact. Range of motion: intact in all extremities. 09:18 Reassessment: Inside lab at bedside to obtain blood specimen. sv 09:32 Cardiovascular: Rhythm is sinus rhythm. ph 10:22 Reassessment: Patient appears in no apparent distress at this time. Patient and/or ph family updated on plan of care and expected duration. Pain level reassessed. Patient is alert, oriented x 3, equal unlabored respirations, skin warm/dry/pink. Pt reports that nausea has improved, denies pain at this time, report called to [facility] ED, awaiting EMS for transport. 11:30 Reassessment: Report given to Jenelle from EMS. sv Vital Signs: 08:12 BP 122 / 51; Pulse 70; Resp 18; Temp 98.2; Pulse Ox 100% ; Weight 82.55 kg; Height 5 sv ft. 3 in. (160.02 cm); Pain 0/10; 08:50 BP 99 / 57; Pulse 66; Resp 18; Temp 98; Pulse Ox 100% ; sv 10:23 BP 101 / 69; Pulse 78; Resp 18; Pulse Ox 100% on R/A; ph 11:15 BP 102 / 66; Pulse 79; Resp 18; Pulse Ox 98% ; sv 08:12 Body Mass Index 32.24 (82.55 kg, 160.02 cm) sv [place] Coma Score: 08:12 Eye Response: spontaneous(4). Verbal Response: oriented(5). Motor Response: obeys sv commands(6). Total: 15. 09:10 Eye Response: spontaneous(4). Verbal Response: oriented(5). Motor Response: obeys ph commands(6). Total: 15. 10:23 Eye Response: spontaneous(4). Verbal Response: oriented(5). Motor Response: obeys ph commands(6). Total: 15. Trauma Score (Adult): 08:12 Eye Response: spontaneous(1); Verbal Response: oriented(1); Motor Response: obeys sv commands(2); Systolic BP: > 89 mm Hg(4); Respiratory Rate: 10 to 29 per min(4); [place] Score: 15; Trauma Score: 12 09:10 Eye Response: spontaneous(1); Verbal Response: oriented(1); Motor Response: obeys ph commands(2); Systolic BP: > 89 mm Hg(4); Respiratory Rate: 10 to 29 per min(4); Jan[place] Score: 15; Trauma Score: 12 10:23 Eye Response: spontaneous(1); Verbal Response: oriented(1); Motor Response: obeys ph commands(2); Systolic BP: > 89 mm Hg(4); Respiratory Rate: 10 to 29 per min(4); [place] Score: 15; Trauma Score: 12 ED Course: 08:08 Patient arrived in ED. ph 08:10 Patient has correct armband on for positive identification. Bed in low position. Call sv light in reach. Side rails up X2. 08:11 front desk monitor on. Pulse ox on. NIBP on. sv 08:13 Triage completed. ph 08:13 Arm band placed on. sv 08:13 Patient maintains SpO2 saturation greater than 95% on room air. Thermoregulation: warm sv blanket given to patient. 08:14 Bia Patterson, CHRIS is Primary Nurse. ph 08:14 Montana Colunga MD is Attending Physician. kdr 08:26 CT Head C Spine In Process Unspecified. EDMS 08:33 XRAY Chest (1 view) In Process Unspecified. EDMS 09:00 Cleaned of incontinence. Linen changed. ph 09:35 Maintain EMS IV. Dressing intact. Site clean \\T\\ dry. Gauge \\T\\ site: 22 L hand. ph 11:30 No provider procedures requiring assistance completed. Patient transferred, IV remains sv in place. intact. Administered Medications: 09:00 Drug: Zofran 4 mg Route: IVP; Site: left hand; ph 10:24 Follow up: Response: No adverse reaction; Nausea is decreased ph Intake: 08:12 PO: 0ml; Total: 0ml. sv Output: 08:12 Urine: 0ml; Total: 0ml. sv Outcome: 09:20 ER care complete, transfer ordered by . kdr 11:31 Patient left the ED. 11:31 Transferred by ground EMS [place]. to [facility], Transfer form ph completed. X-rays sent w/ patient. : Condition: stable 11:31 Instructed on the need for transfer. :31 Patient's length of stay was not longer than 2 hours. ph Signatures: Dispatcher [employer] Halle Bills, CHRIS RN Montana Colunga MD MD kdr Hall, Patricia, RN RN
[2019-01-17 09:46] LABS: Protime INR 1.22
[2019-01-17 09:47] LABS: Absolute Lymphocytes (CBC) 0.8 K/uL (0.7-4.9); Basophils % 2.5 % (0-1.3); Hematocrit 23.6 % (36.0-45.0); Lymphocytes % 25.3 % (15.3-44.8); MPV 7.9 fL (7.6-11.3)
--- NOTE | 2019-01-17 09:51 | RAD REPORT ---
EXAM DESCRIPTION: Олег Single View01/17/2019 8:37 am CLINICAL HISTORY: Shortness of breath COMPARISON: December 2018 FINDINGS: Right hemidiaphragm remains elevated with mild right basilar atelectasis Left lung appears clear Heart is borderline enlarged
[2019-01-17 10:17] LABS: ALT/SGPT 59 U/L (12-78); AST/SGOT 78 U/L (15-37); Albumin 2.8 g/dL (3.4-5.0); Alkaline Phosphatase 469 U/L (45-117); BUN Blood Urea Nitrogen 16 mg/dL (7-18); Bicarbonate 23 mmol/L (21-32); Bilirubin Direct 2.3 mg/dL (0-0.2); Bilirubin Total 3.9 mg/dL (0.2-1.0); Glucose Level 121 mg/dL (74-106); Magnesium 2.2 mg/dL (1.8-2.4); NT PRO-BNP 159 pg/mL (<125); Protein, Total 6.1 g/dL (6.4-8.2); Sodium Level 141 mmol/L (136-145); Troponin (Emerg Dept Use Only) < 0.02 ng/mL (0.0-0.045)
[2019-01-17 10:43] LABS: Anisocytosis 1+; Blood Morphology Comment NOTED (NOT SEEN); Platelet Estimate DECR; Polychromasia SLIGHT
[2019-01-17 11:38] VITALS: TEMP 98
[2019-01-17 11:41] VITALS: BP 102/66; O2SAT 98
--- NOTE | 2019-01-17 12:20 | EKG ---
Test Date: 2019-01-17 Test Time: 08:08:19 [employer] Faculty Member: JASSON MEASUREMENT RESULTS: Intervals: Rate: 76 ID: [id number] QRSD: 72 QT: 384 QTc: 432 Amoret: P: ID: [id number] QRS: 47 T: -79 INTERPRETIVE STATEMENTS: Normal sinus rhythm T wave abnormality, consider inferior ischemia T wave abnormality, consider anterolateral ischemia Abnormal ECG Compared to ECG 12/20/2018 15:52:46 Possible ischemia now present T-wave abnormality still present Electronically Signed On 01-17-19 12:19:15 [employer] ATTENDANT by Titi Nelson
== END 2019-01-17 11:31 | disposition short-term general hospital (02) ==
LOC: ER 08:04
DX: S06.5X9A Traumatic subdural hemorrhage with loss of consciousness of unspecified duration, initial encounter (principal); R06.02 Shortness of breath; C50.911 Malignant neoplasm of unspecified site of right female breast; W19.XXXA Unspecified fall, initial encounter; Y93.89 Activity, other specified; Y92.008 Other place in unspecified non-institutional (private) residence as the place of occurrence of the external cause
CPT/HCPCS: 93005; 85025; 80048; 36415; 86900; 83735; 86850; 85610; 86870; 86901; 80076; 84484; 83880; 70450; 72125; 71045; 96374; 99285; J2405

== ENCOUNTER 2019-01-24 19:31 | Inpatient (IN) | payer BC ==
--- NOTE | 2019-01-24 20:07 | RAD REPORT ---
EXAM DESCRIPTION: RAD - Chest Single View - 01/24/2019 8:01 pm CLINICAL HISTORY: COUGH Chest pain. COMPARISON: Chest Single View dated 01/17/2019; Chest Single View dated 01/12/2019; Chest Single View dated 12/20/2018; Chest Single View dated 10/31/2018; Chest For Pe Angio dated 01/12/2019; Head C Spin e Mpr Wo Con dated 01/17/2019 FINDINGS: Portable technique limits examination quality. The lungs are grossly clear. The heart is mildly prominent size with a tortuous thoracic aorta. Scler otic appearance to the osseous structures suggests bony metastatic disease. IMPRESSION: No acute intrathoracic process suspected.
--- NOTE | 2019-01-24 20:19 | RAD REPORT ---
EXAM DESCRIPTION: CT - Head Brain Wo Cont - 01/24/2019 8:09 pm CLINICAL HISTORY: Dizziness;Weakness Headache, drowsiness COMPARISON: Head Brain Wo Cont dated 12/04/2017; Head C Spine Mpr Wo Con dated 01/17/2019 TECHNIQUE: All CT scans are performed using dose optimization technique as appropriate and may inclu de automated exposure control or mA/KV adjustment according to patient size. FINDINGS: No intracranial hemorrhage, hydrocephalus or extra-axial fluid collection.The previously n oted small left convexity subdural hematoma is no longer seen. Moderate brain atrophy is present.No a reas of brain edema or evidence of midline shift. The paranasal sinuses and mastoids are clear. Sclerotic changes are seen throughout the calvarium lik steve compatible with diffuse bony metastasis. Left vertebral artery atherosclerosis. IMPRESSION: No acute intracranial abnormality.
--- NOTE | 2019-01-24 20:24 | RAD REPORT ---
EXAM DESCRIPTION: CT - Abdomen Pelvis Wo Contrast - 01/24/2019 8:16 pm CLINICAL HISTORY: Abdominal pain. PAIN COMPARISON: No comparisons TECHNIQUE: CT imaging of the abdomen and pelvis was performed without contrast. Solid organ, bowel a nd vascular assessment is limited due to lack of IV and oral contrast. All CT scans are performed using dose optimization technique as appropriate and may include automated exposure control or mA/KV adjustment according to patient size. FINDINGS: Atelectasis is present in the right lung base with trace right pleural effusion. Diffuse hepatic metastases seen. Cholecystectomy. Bilateral adrenal masses also likely metastatic in nature.Spleen is mildly prominent. Pancreas is atrophic. Soft tissue is seen in the retroperitoneal r egion anterior to the abdominal aorta measuring 5.2 x 2.3 cm, likely metastatic in etiology. No hydro nephrosis or stone in either kidney. No bowel obstruction, free air, free fluid or abscess. The appendix is normal. Diffuse bony metastatic disease. IMPRESSION: Extensive metastatic disease is seen involving the liver, adrenal glands, retroperitoneu m and osseous structures. An acute abnormality is not detected. A limited non-contrast examination was performed as detailed.
[2019-01-24] MEDS ORDERED: NA CHLORIDE 0.9% 1,000 ML ONE ×2 (20:45→22:25)
[2019-01-24 21:01] LABS: Absolute Lymphocytes (CBC) 1.6 K/uL (0.7-4.9); Basophils % 1.6 % (0-1.3); Hematocrit 24.1 % (36.0-45.0); Lymphocytes % 25.9 % (15.3-44.8); MPV 7.9 fL (7.6-11.3); RBC Red Blood Cell Count 2.69 M/uL (3.86-4.86)
[2019-01-24 21:08] LABS: Protime INR 1.35
[2019-01-24 21:27] LABS: ALT/SGPT 59 U/L (12-78); AST/SGOT 153 U/L (15-37); Albumin 2.4 g/dL (3.4-5.0); Alkaline Phosphatase 552 U/L (45-117); BUN Blood Urea Nitrogen 25 mg/dL (7-18); Bicarbonate 22 mmol/L (21-32); Bilirubin Direct 7.4 mg/dL (0-0.2); Glucose Level 96 mg/dL (74-106); Lipase 103 U/L (73-393); NT PRO-BNP 387 pg/mL (<125); Potassium 3.4 mmol/L (3.5-5.1); Protein, Total 6.2 g/dL (6.4-8.2); Sodium Level 136 mmol/L (136-145); Troponin (Emerg Dept Use Only) < 0.02 ng/mL (0.0-0.045)
[2019-01-24 21:29] LABS: Bilirubin Total 9.2 mg/dL (0.2-1.0)
[2019-01-24] MEDS ORDERED: ONDANSETRON 4 MG/2 ML VIAL ONE (22:01)
[2019-01-24] MEDS ORDERED: LORazepam 2 MG/ML VIAL ONE (22:01)
[2019-01-24] MEDS ORDERED: FAMOTIDINE 20 MG/2 ML VIAL IV ONE (22:02)
--- NOTE | 2019-01-24 22:23 | ER ---
Nurse's Notes [facility] Name: Esther Nichole Age: 63 yrs Sex: Female : 1955 Arrival Date: 01/24/2019 Time: 19:33 Bed 14 Private MD: Diagnosis: Anemia, unspecified;Disseminated malignant neoplasm, unspecified-brest cancer;Weakness;Unspecified jaundice Presentation: 01/24 19:27 Presenting complaint: EMS states: PT was brought here 2 weeks ago for a fall, was jb4 diagnosed with a brain bleed. Got sent to [facility] and was discharged last Wednesday. Has been getting weaker ever since, and tonight she cannot get out of bed. 19:27 Transition of care: patient was not received from another setting of care. Onset of jb4 symptoms was January 20, 2019. Risk Assessment: Do you want to hurt yourself or someone else? Patient reports no desire to harm self or others. Initial Sepsis Screen: Does the patient meet any 2 criteria? HR > 90 bpm. Yes Does the patient have a suspected source of infection? No. Patient's initial sepsis screen is negative. Care prior to arrival: None. 19:27 Method Of Arrival: EMS: [facility] jb4 19:27 Acuity: KAMILAH 2 jb4 Historical: - Allergies: 19:27 No Known Allergies; jb4 - Home Meds: 19:27 Keppra Oral [Active]; Reglan Oral [Active]; Tylenol #4 Oral [Active]; effecsa [Active]; jb4 ativan [Active]; - PMHx: 19:27 Cancer, Breast; neurofibromatosis; St 4 metastatic right breast cancer; jb4 - PSHx: 19:27 Mastectomy, Right; Hysterectomy; Cholecystectomy; ; Tumor removal of the neck; jb4 - Immunization history:: Adult Immunizations up to date. - Social history:: Smoking status: Patient/guardian denies using tobacco, Patient/guardian denies using alcohol. - Ebola Screening: : No symptoms or risks identified at this time. - Family history:: not pertinent. Screenin:27 Abuse screen: Denies threats or abuse. Nutritional screening: No deficits noted. jb4 Tuberculosis screening: No symptoms or risk factors identified. Fall Risk IV access (20 points). Gait- Impaired (20 pts.). Total [place] Fall Scale indicates Low Risk Score (25-44 pts). Fall prevention measures have been instituted. Side Rails Up X 2 Placed close to Nursing Station Frequent Obs/Assesments occuring Family Present and informed to notify staff if they need to leave bedside As available Patient and Family Educated on Fall Prevention Program and strategies. Assessment: 19:27 General: Appears in no apparent distress. uncomfortable, ill, Behavior is calm, jb4 cooperative, appropriate for age. Pain: Denies pain. Neuro: Level of Consciousness is awake, alert, obeys commands, Oriented to person, place, time, situation. Cardiovascular: Patient's skin is warm and dry. Respiratory: Airway is patent Respiratory effort is even, unlabored, Respiratory pattern is regular, symmetrical. GI: Reports nausea. : No deficits noted. No signs and/or symptoms were reported regarding the genitourinary system. EENT: No deficits noted. No signs and/or symptoms were reported regarding the EENT system. Derm: Skin is intact, Skin is dry, Skin is jaundiced, Skin temperature is warm. Musculoskeletal: Circulation, motion, and sensation intact. Range of motion: intact in all extremities. 20:30 Reassessment: Patient appears in no apparent distress at this time. Patient and/or jb4 family updated on plan of care and expected duration. Pain level reassessed. Patient is alert, oriented x 3, equal unlabored respirations, skin warm/dry/pink. 21:30 Reassessment: Patient appears in no apparent distress at this time. Patient and/or jb4 family updated on plan of care and expected duration. Pain level reassessed. Patient is alert, oriented x 3, equal unlabored respirations, skin warm/dry/pink. 22:30 Reassessment: Patient appears in no apparent distress at this time. Patient and/or jb4 family updated on plan of care and expected duration. Pain level reassessed. Patient is alert, oriented x 3, equal unlabored respirations, skin warm/dry/pink. 23:30 Reassessment: Patient appears in no apparent distress at this time. Patient and/or jb4 family updated on plan of care and expected duration. Pain level reassessed. Patient is alert, oriented x 3, equal unlabored respirations, skin warm/dry/pink. Patient states feeling better. Vital Signs: 19:27 BP 126 / 99; Pulse 108; Resp 19; Temp 97.7(O); Pulse Ox 100% on R/A; Weight 81.65 kg jb4 (R); Height 5 ft. 3 in. (160.02 cm) (R); Pain 0/10; 21:00 BP 126 / 81; Pulse 113; Resp 20; Pulse Ox 99% on R/A; jb4 21:59 BP 126 / 81; Pulse 105; Resp 26; Pulse Ox 100% on R/A; mt 23:00 BP 108 / 79; Pulse 100; Resp 17; Pulse Ox 99% on R/A; jb4 01/25 00:00 BP 107 / 68; Pulse 100; Resp 18; Temp 98.3(A); Pulse Ox 99% on R/A; jb4 01/24 19:27 Body Mass Index 31.89 (81.65 kg, 160.02 cm) jb4 ED Course: 01/24 19:27 Arm band placed on left wrist. jb4 19:27 Patient has correct armband on for positive identification. Placed in gown. Bed in low jb4 position. Call light in reach. Side rails up X 1. radiation monitor on. Pulse ox on. NIBP on. 19:33 Patient arrived in ED. jb4 19:36 Bro Bailey, RN is Primary Nurse. jb4 19:40 Triage completed. jb4 19:48 Peyamn Yates MD is Attending Physician. kaykay 20:02 XRAY Chest (1 view) In Process Unspecified. EDMS 20:09 CT Head Brain wo Cont In Process Unspecified. EDMS 20:21 Abdomen In Process Unspecified. EDMS 21:28 Notified ED physician of a critical lab result(s). total bili of 9.2, lactate of 5.2. fc 22:15 Tariq Arguello is Hospitalizing Provider. kaykay 01/25 00:55 No provider procedures requiring assistance completed. Patient admitted, IV remains in jb4 place. Administered Medications: 01/24 21:06 Drug: NS 0.9% 500 ml Route: IV; Rate: bolus; Site: left jugular; jb4 22:00 Follow up: Response: No adverse reaction; IV Status: Completed infusion; IV Intake: jb4 500ml 22:17 Drug: Pepcid 20 mg Route: IVP; Site: left jugular; jb4 22:40 Follow up: Response: No adverse reaction jb4 22:18 Drug: Zofran 4 mg Route: IVP; Site: left jugular; jb4 22:40 Follow up: Response: No adverse reaction; Nausea is decreased jb4 22:21 Drug: Ativan 1 mg Route: IVP; Site: left jugular; jb4 22:40 Follow up: Response: No adverse reaction; Anxiety decreased jb4 22:22 Not Given (Patient Refused): NS 0.9% 1000 ml IV at 125 ml/hr continuous jb4 22:28 Drug: NS 0.9% 1000 ml Route: IV; Rate: 1 bolus; Site: left jugular; jb4 23:42 Follow up: Response: No adverse reaction; IV Status: Completed infusion; IV Intake: jb4 1000ml 23:52 Drug: Tussionex Pennkinetic ER 5 ml Route: PO; rv 01/25 00:10 Follow up: Response: No adverse reaction jb4 Intake: 01/24 22:00 IV: 500ml; Total: 500ml. jb4 23:42 IV: 1000ml; Total: 1500ml. jb4 Outcome: 22:22 Decision to Hospitalize by Provider. [facility] 01/25 00:55 Admitted to Med/surg accompanied by tech, via stretcher, room 202, with chart, Report jb4 called to CHRIS Malik Condition: stable Discharge instructions given to patient, family, Instructed on the need for admit, Demonstrated understanding of instructions. 00:56 Patient left the ED. jb4 Signatures: Dispatcher [employer] EDPeyman Portillo MD MD cha Chretien, Felicia, RN RN fc Bryson, James, RN RN jb4 Thompson, Moriah mt Vicente, Ronaldo, RN RN rv
--- NOTE | 2019-01-24 22:24 | EDPHYS ---
Physician Documentation [facility] Name: Esther Nichole Age: 63 yrs Sex: Female : 1955 Arrival Date: 01/24/2019 Time: 19:33 Bed 14 Private MD: JASS Physician Peyman Yates HPI: 01/24 20:39 This 63 yrs old Female presents to ER via EMS with complaints of General kaykay Weakness. 20:39 The patient presents with abdominal distention in the upper abdomen, in the lower kaykay abdomen. Onset: The symptoms/episode began/occurred 2 day(s) ago. weakness, jaundice. Onset: The symptoms/episode began/occurred 2 day(s) ago. The symptoms do not radiate. Associated signs and symptoms: Pertinent positives: shortness of breath. Historical: - Allergies: 19:27 No Known Allergies; jb4 - Home Meds: 19:27 Keppra Oral [Active]; Reglan Oral [Active]; Tylenol #4 Oral [Active]; effecsa [Active]; jb4 ativan [Active]; - PMHx: 19:27 Cancer, Breast; neurofibromatosis; St 4 metastatic right breast cancer; jb4 - PSHx: 19:27 Mastectomy, Right; Hysterectomy; Cholecystectomy; ; Tumor removal of the neck; jb4 - Immunization history:: Adult Immunizations up to date. - Social history:: Smoking status: Patient/guardian denies using tobacco, Patient/guardian denies using alcohol. - Ebola Screening: : No symptoms or risks identified at this time. - Family history:: not pertinent. ROS: 20:42 Constitutional: Negative for fever, chills, and weight loss, Eyes: Negative for injury, kaykay pain, redness, and discharge, ENT: Negative for injury, pain, and discharge, Neck: Negative for injury, pain, and swelling, Cardiovascular: Negative for chest pain, palpitations, and edema, Abdomen/GI: Negative for abdominal pain, nausea, vomiting, diarrhea, and constipation, Back: Negative for injury and pain, : Negative for injury, bleeding, discharge, and swelling, MS/Extremity: Negative for injury and deformity, Neuro: Negative for headache, weakness, numbness, tingling, and seizure, Psych: Negative for depression, anxiety, suicide ideation, homicidal ideation, and hallucinations, Allergy/Immunology: Negative for hives, rash, and allergies, Endocrine: Negative for neck swelling, polydipsia, polyuria, polyphagia, and marked weight changes, Hematologic/Lymphatic: Negative for swollen nodes, abnormal bleeding, and unusual bruising. 20:42 Respiratory: Positive for cough, shortness of breath. 20:42 Abdomen/GI: Positive for nausea. 20:42 Skin: Positive for jaundice, diffusely. Exam: 20:42 Constitutional: This is a well developed, well nourished patient who is awake, alert, kaykay and in no acute distress. Head/Face: Normocephalic, atraumatic. ENT: Nares patent. No nasal discharge, no septal abnormalities noted. Tympanic membranes are normal and external auditory canals are clear. Oropharynx with no redness, swelling, or masses, exudates, or evidence of obstruction, uvula midline. Mucous membranes moist. Neck: Trachea midline, no thyromegaly or masses palpated, and no cervical lymphadenopathy. Supple, full range of motion without nuchal rigidity, or vertebral point tenderness. No Meningismus. Chest/axilla: Normal chest wall appearance and motion. Nontender with no deformity. No lesions are appreciated. Respiratory: Lungs have equal breath sounds bilaterally, clear to auscultation and percussion. No rales, rhonchi or wheezes noted. No increased work of breathing, no retractions or nasal flaring. Abdomen/GI: Soft, non-tender, with normal bowel sounds. No distension or tympany. No guarding or rebound. No evidence of tenderness throughout. Back: No spinal tenderness. No costovertebral tenderness. Full range of motion. MS/ Extremity: Pulses equal, no cyanosis. Neurovascular intact. Full, normal range of motion. Neuro: Awake and alert, GCS 15, oriented to person, place, time, and situation. Cranial nerves II-XII grossly intact. Motor strength 5/5 in all extremities. Sensory grossly intact. Cerebellar exam normal. Normal gait. Psych: Awake, alert, with orientation to person, place and time. Behavior, mood, and affect are within normal limits. 20:42 Eyes: Sclera: icterus. 20:42 Respiratory: the patient does not display signs of respiratory distress, Respirations: labored breathing, that is mild, Breath sounds: decreased breath sounds, rhonchi, wheezing: expiratory Respiratory rate: 22 20:42 Skin: Appearance: Color: jaundiced, Temperature: normal temperature, Moisture: normal moisture, petechiae, not noted, ecchymosis, not noted. Vital Signs: 19:27 BP 126 / 99; Pulse 108; Resp 19; Temp 97.7(O); Pulse Ox 100% on R/A; Weight 81.65 kg jb4 (R); Height 5 ft. 3 in. (160.02 cm) (R); Pain 0/10; 21:00 BP 126 / 81; Pulse 113; Resp 20; Pulse Ox 99% on R/A; jb4 21:59 BP 126 / 81; Pulse 105; Resp 26; Pulse Ox 100% on R/A; mt 23:00 BP 108 / 79; Pulse 100; Resp 17; Pulse Ox 99% on R/A; 4 01/25 00:00 BP 107 / 68; Pulse 100; Resp 18; Temp 98.3(A); Pulse Ox 99% on R/A; banner 01/24 19:27 Body Mass Index 31.89 (81.65 kg, 160.02 cm) banner Procedures: 01/24 20:48 Peripheral line: by aseptic technique a peripheral line was placed in the left external [facility] jugular vein. MDM: 19:48 Patient medically screened. [facility] 20:44 Data reviewed: vital signs, nurses notes, lab test result(s), EKG, radiologic studies, [facility] CT scan, plain films. 01/24 19:50 Order name: Basic Metabolic Panel [facility] 01/24 19:50 Order name: CBC with Diff [facility] 01/24 19:50 Order name: LFT's; Complete Time: 22:13 [facility] 01/24 19:50 Order name: Magnesium; Complete Time: 22:13 [facility] 01/24 19:50 Order name: NT PRO-BNP; Complete Time: 22:13 [facility] 01/24 19:50 Order name: PT-INR; Complete Time: 21:24 [facility] 01/24 19:50 Order name: Troponin (emerg Dept Use Only); Complete Time: 22:13 [facility] 01/24 19:50 Order name: Lipase; Complete Time: 22:13 [facility] 01/24 19:50 Order name: Basic Metabolic Panel; Complete Time: 22:13 EDMS 01/24 20:39 Order name: Type And Screen [facility] 01/24 20:39 Order name: AMMONIA [facility] 01/24 20:48 Order name: Blood Culture Adult (2) [facility] 01/24 21:01 Order name: Lactate; Complete Time: 22:13 cm6 01/24 19:50 Order name: XRAY Chest (1 view); Complete Time: 20:45 [facility] 01/24 19:50 Order name: EKG; Complete Time: 19:51 [facility] 01/24 19:50 Order name: CT Head Brain wo Cont; Complete Time: 20:45 [facility] 01/24 20:17 Order name: Abdomen ; Complete Time: 20:45 [facility] 01/24 21:48 Order name: Antibody Identification [facility] 01/24 23:29 Order name: Manual Differential [facility] 01/25 00:29 Order name: Lactate Sepsis 2 HR Follow-up [facility] 01/24 19:50 Order name: Cardiac monitoring; Complete Time: 20:48 [facility] 01/24 19:50 Order name: EKG - Nurse/Tech; Complete Time: 21:05 [facility] 01/24 19:50 Order name: IV Saline Lock; Complete Time: 20:48 [facility] 01/24 19:50 Order name: Labs collected and sent; Complete Time: 20:57 [facility] 01/24 19:50 Order name: O2 Per Protocol; Complete Time: 20:40 [facility] 01/24 19:50 Order name: O2 Sat Monitoring; Complete Time: 20:40 [facility] Administered Medications: 21:06 Drug: NS 0.9% 500 ml Route: IV; Rate: bolus; Site: left jugular; jb4 22:00 Follow up: Response: No adverse reaction; IV Status: Completed infusion; IV Intake: jb4 500ml 22:17 Drug: Pepcid 20 mg Route: IVP; Site: left jugular; jb4 22:40 Follow up: Response: No adverse reaction jb4 22:18 Drug: Zofran 4 mg Route: IVP; Site: left jugular; jb4 22:40 Follow up: Response: No adverse reaction; Nausea is decreased jb4 22:21 Drug: Ativan 1 mg Route: IVP; Site: left jugular; jb4 22:40 Follow up: Response: No adverse reaction; Anxiety decreased jb4 22:22 Not Given (Patient Refused): NS 0.9% 1000 ml IV at 125 ml/hr continuous jb4 22:28 Drug: NS 0.9% 1000 ml Route: IV; Rate: 1 bolus; Site: left jugular; jb4 23:42 Follow up: Response: No adverse reaction; IV Status: Completed infusion; IV Intake: jb4 1000ml 23:52 Drug: Tussionex Pennkinetic ER 5 ml Route: PO; rv 01/25 00:10 Follow up: Response: No adverse reaction jb4 Disposition: 01/24/19 22:22 Hospitalization ordered by Tariq Arguello for Inpatient Admission. Preliminary diagnosis are Anemia, unspecified, Disseminated malignant neoplasm, unspecified - brest cancer, Weakness, Unspecified jaundice. - Bed requested for Telemetry/MedSurg (Inpatient). - Status is Inpatient Admission. jb4 - Condition is Serious. - Problem is chronic. - Symptoms have worsened. UTI on Admission? No Signatures: Dispatcher [facility] EDIA Araseli Tamez RN Peyman Louie MD MD cha Bryson, James, RN RN jbKeith Johnson RN RN Corrections: (The following items were deleted from the chart) 01/24 20:23 20:20 Abdomen Pelvis Wo Con+CT.RAD.BRZ ordered. [facility] EDIA 20:23 20:21 Abdomen Pelvis Wo Con+CT.RAD.BRZ ordered. [facility] EDIA 22:40 19:50 Urine Dipstick-Ancillary ordered. [place] [id number] 22:41 19:51 Urine Culture+BA.LAB.BRZ ordered. [facility] EDIA 23:55 22:22 Hospitalization Ordered by Tariq Arguello for Inpatient Admission. Preliminary diagnosis is Anemia, unspecified; Disseminated malignant neoplasm, unspecified - brest cancer; Weakness; Unspecified jaundice. Bed requested for Telemetry/MedSurg (Inpatient). Status is Inpatient Admission. Condition is Serious. Problem is chronic. Symptoms have worsened. UTI on Admission? No. kaykay 01/25 00:56 01/24 23:55 01/24/2019 22:22 Hospitalization Ordered by Tariq Arguello for Inpatient jb4 Admission. Preliminary diagnosis is Anemia, unspecified; Disseminated malignant neoplasm, unspecified - brest cancer; Weakness; Unspecified jaundice. Bed requested for Telemetry/MedSurg (Inpatient). Status is Inpatient Admission. Condition is Serious. Problem is chronic. Symptoms have worsened. UTI on Admission? No. mw
[2019-01-24 23:29] LABS: Blood Morphology Comment NOTED (NOT SEEN); Platelet Estimate DECR; Polychromasia 1+
--- NOTE | 2019-01-24 23:44 | P.HP ---
Certification for Inpatient Patient admitted to: Inpatient With expected LOS: >2 Midnights Practitioner: I am a practitioner with admitting privileges, knowledge of patient current condition, hospital course, and medical plan of care. Services: Services provided to patient in accordance with Admission requirements found in Title 42 Section 412.3 of the Code of Federal Regulations Patient History Date of Service: 01/24/19 Reason for admission: Generalize weakness and cough History of Present Illness: 63-year-old woman who has been battling breast cancer with metastases for 2 years, status post chemotherapy with progression of disease presented to the emergency department with a complaint of generalized weakness, cough and increased jaundiced. Family also reports urine and stool incontinence. Patient is needing total assist for transfer at this time. She was here in the ED 1 month ago for anemia. She was given blood transfusion and discharged. Blood work in the ED today demonstrated severely elevated bilirubin and elevated liver enzymes along with elevated lactic acid and coagulopathy. Per Dr. Yates, he contacted [facility] breast cancer department and was told patient will not benefit from further cancer treatment and they are now recommending hospice at this time. I had a discussion with the patient and her daughter regarding goals of care. She has agreed to proceed with hospice. She has also agreed to DNR. Patient is admitted to assess for infection and transition to hospice. 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 She is . - Family History Father -: Other (see notes) Notes: heart attack Brother -: Cancer Sister -: Other (see notes) Notes: bladder cancer - Social History Alcohol use: No CD- Drugs: No Caffeine use: Yes Review of Systems Other: General: No fever, has malaise, no unintentional weight loss. Eyes: No eye discharge, CVS: No chest pain, no palpitation, no lightheadedness. GI: No abdominal pain, no nausea no vomit, no constipation, no diarrhea. Genitourinary: No dysuria, no urinary frequency, has incontinence, no hematuria. Musculoskeletal: No joint pains, or joint swelling, has gait instability. Neurology: No headache, no asymmetric, weakness, no problem with swallowing. Except as documented, all other systems reviewed and negative. Physical Examination - Physical Exam General: Alert, In no apparent distress, Oriented x3, Disheveled HEENT: Normocephalic, Mucous membr. moist/pink, Scleral icterus Neck: Supple, JVD not distended Respiratory: Clear to auscultation bilaterally, Normal air movement Cardiovascular: No edema, Regular rate/rhythm, Normal S1 S2, Abnormal S3 Capillary refill: <2 Seconds Gastrointestinal: Normal bowel sounds, Soft and benign, No tenderness, Distended (Mildly distended) Musculoskeletal: No swelling Integumentary: Other ( Generalized Neurofibromatosis nodules. Jaundiced skin.) Neurological: Normal speech, Normal strength at 5/5 x4 extr, Cranial nerves 3- 12 intact - Studies Laboratory Data (last 24 hrs) 01/24/19 20:28: PT 15.7 H, INR 1.35 01/24/19 20:28: WBC 6.3 D, Hgb 8.1 L, Hct 24.1 L, Plt Count 85 L D 01/24/19 20:28: Sodium 136, Potassium 3.4 L, BUN 25 H, Creatinine 0.75, Glucose 96, Magnesium 2.0, Total Bilirubin 9.2 H*, AST 153 H, ALT 59, Alkaline Phosphatase 552 H, Lipase 103 Assessment and Plan - Problems (Diagnosis) (1) Jaundice Status: Acute (2) Impaired mobility and activities of daily living Status: Acute (3) Elevated liver enzymes Status: Acute (4) Hyperbilirubinemia Status: Acute (5) Breast cancer, stage 4 Onset Date: 12/08/17 Status: Acute - Plan Admit to the medical floor Follow blood cultures Obtain urinalysis with reflex culture. Start IV Rocephin for now. Patient and daughter have agreed to hospice. 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 Pain management. Ativan p.r.n. for anxiety. - Advance Directives Does patient have a Living Will: Yes Does patient have a Durable POA for Healthcare: Yes
[2019-01-24] MEDS ORDERED: HYDROCODONE/CHLORPHEN 5 ML/OSYR ONE (23:52)
[2019-01-25] MEDS: NA CHLORIDE 0.9% 1,000 ML IV SCH ×4 (00:33→20:33)
[2019-01-25 01:11] VITALS: BMI 32.2
[2019-01-25 06:03] LABS: Absolute Lymphocytes (CBC) 1.1 K/uL (0.7-4.9); Basophils % 1.6 % (0-1.3); Hematocrit 20.2 % (36.0-45.0); Lymphocytes % 24.2 % (15.3-44.8); RBC Red Blood Cell Count 2.27 M/uL (3.86-4.86)
[2019-01-25 06:21] LABS: Protime INR 1.35
[2019-01-25 06:24] LABS: ALT/SGPT 50 U/L (12-78); AST/SGOT 131 U/L (15-37); Albumin 2.3 g/dL (3.4-5.0); Alkaline Phosphatase 509 U/L (45-117); BUN Blood Urea Nitrogen 24 mg/dL (7-18); Bicarbonate 25 mmol/L (21-32); Glucose Level 89 mg/dL (74-106); Potassium 3.5 mmol/L (3.5-5.1); Protein, Total 5.5 g/dL (6.4-8.2); Sodium Level 137 mmol/L (136-145)
[2019-01-25 06:28] LABS: Bilirubin Total 9.9 mg/dL (0.2-1.0)
--- NOTE | 2019-01-25 07:44 | EKG ---
Test Date: 2019-01-24 Test Time: 21:02:08 Biological Chemist: RENE MEASUREMENT RESULTS: Intervals: Rate: 113 ND: 146 QRSD: 72 QT: 358 QTc: 491 [place]: P: 65 ND: 146 QRS: 63 T: 262 INTERPRETIVE STATEMENTS: Sinus tachycardia ST & T wave abnormality, consider inferior ischemia ST & T wave abnormality, consider anterior ischemia Abnormal ECG Compared to ECG 01/17/2019 08:08:19 ST (T wave) deviation now present Sinus rhythm no longer present T-wave abnormality no longer present Possible ischemia still present Electronically Signed On 01-25-19 07:43:07 POKER MACHINE ATTENDANT by James Niño
[2019-01-25] MEDS: CEFTRIAXONE/SWI 1gm 1 GM/10 ML SYR IV SCH (08:19)
[2019-01-25] MEDS: ONDANSETRON 4 MG/2 ML VIAL IV PRN ×2 (08:19→17:31)
[2019-01-25] MEDS ORDERED: POTASSIUM CL SA 10 MEQ TAB PO ONE (09:00)
[2019-01-25] MEDS ORDERED: CEFTRIAXONE 1 GM/NS 50 ML 1 GM/50 ML BAG IV SCH (09:00)
[2019-01-25] MEDS ORDERED: LORAZEPAM 1 MG TABLET PO PRN (09:54)
[2019-01-25] MEDS ORDERED: GUAIFENESIN/DM 5 ML UCUP PO PRN (09:58)
[2019-01-25 10:03] VITALS: O2SAT 97
[2019-01-25] MEDS ORDERED: METOCLOPRAMIDE 5 MG TAB PO PRN (10:18)
[2019-01-25] MEDS ORDERED: BENZONATATE 100 MG CAP PO PRN (10:18)
[2019-01-25] MEDS ORDERED: HYDROCODONE/APAP 7.5/325 MG TAB PO PRN (10:19)
[2019-01-25] MEDS ORDERED: HYDROCODONE/CHLORPHEN 5 ML/OSYR PO PRN (11:34)
--- NOTE | 2019-01-25 15:36 | PN ---
Date of Progress Note: 01/25/2019 Subjective: Patient seen and examined. Chart reviewed and case discussed with RN. Patient's daughter at the bedside. Treatment plan explained. All questions answered. Went over CT scan results. Family understands, the patient understands that she has very limited prognosis. Medications: List reviewed. Code Status: Do not attempt resuscitation. Physical Examination: Vital Signs: Temperature 98.6, heart rate 95, O2 at 97% on room air. GENERAL: Awake, alert, oriented x3, ill-appearing, jaundiced female, obese. BMI 32. CV: S1, S2. Regular rate and rhythm. Peripheral pulses present. Respiratory: Moving air well bilaterally. No wheezing or stridor. Gastrointestinal: Abdomen is soft, nontender, nondistended. Positive bowel sounds. No guarding or rigidity. Extremities: No clubbing, cyanosis or edema. NEURO: Cranial nerves 2 through 12 intact grossly. No focal neurological deficits. Speech is normal. SKIN: Jaundiced. Normal skin turgor. No rashes. Laboratory Data: Sodium 137, potassium 3.5, chloride 104, CO2 of 25, BUN 24, creatinine 0.6, glucose 89, lactate 3.1, calcium 8.2, total bilirubin 9.9, AST 131, ALT 50, alkaline phosphatase 509, albumin 2.3. WBC 4.5, H and H 7 and 20.2. Blood cultures are pending. Assessment And Plan: A 63-year-old female with: 1. Generalized weakness likely secondary to her metastatic breast cancer. 2. Jaundice. Patient has hyperbilirubinemia secondary to liver metastases. 3. Breast cancer stage IV with diffuse metastases to liver, adrenal glands, retroperitoneum, and bones. The ER physician has spoken with MD Yates and family also aware that her prognosis is very poor. They are recommending hospice care for the patient at this time. Patient is agreeable, currently DNR , wishes to have hospice set up at home. Social workers are aware. 4. Elevated liver enzymes secondary to above. 5. Impaired mobility and activities of daily living. 6. Generalized anxiety disorder. Continue with Ativan p.r.n. 7. Chronic pain. Continue with [place]. 8. Neurofibromatosis. 9. Anemia, normocytic, normochromic. Monitor H and H. Plan: Set up hospice, discharge once accepted. /CORAL Voice ID: [id number] Report ID: [id number]
[2019-01-25] MEDS: levETIRAcetam 500 MG TAB PO SCH (20:58)
[2019-01-25] MEDS: DOCUSATE NA 100 MG CAP PO SCH (20:59)
[2019-01-26 06:30] LABS: BUN Blood Urea Nitrogen 23 mg/dL (7-18); Bicarbonate 25 mmol/L (21-32); Glucose Level 101 mg/dL (74-106); Phosphorus 1.9 mg/dL (2.5-4.9); Potassium 3.9 mmol/L (3.5-5.1); Sodium Level 137 mmol/L (136-145)
[2019-01-26] MEDS: NA CHLORIDE 0.9% 1,000 ML IV SCH (06:33)
[2019-01-26] MEDS: CEFTRIAXONE/SWI 1gm 1 GM/10 ML SYR IV SCH (08:46)
[2019-01-26] MEDS: DOCUSATE NA 100 MG CAP PO SCH (08:47)
[2019-01-26] MEDS: levETIRAcetam 500 MG TAB PO SCH (08:48)
[2019-01-26] MEDS: POTASS/SODIUM PHOSPHATE 1 PKT POWD.PACK PO SCH ×3 (08:48→10:13)
[2019-01-26] MEDS ORDERED: POTASSIUM CL SA 10 MEQ TAB PO ONE (09:00)
[2019-01-26 14:07] VITALS: BP 105/65; TEMP 98.5
--- NOTE | 2019-01-27 00:58 | DS ---
Date of Discharge: 01/26/2019 Admitting Diagnoses: 1.Generalized weakness. 2.Elevated liver enzymes. 3.Severe hyperbilirubinemia. 4.Jaundice. 5.Breast cancer stage IV with diffuse metastasis. 6.Non-intractable nausea, vomiting. Discharge Diagnoses: 1.Generalized weakness secondary to metastatic breast cancer. 2.Jaundice secondary to hyperbilirubinemia. 3.Breast cancer stage IV with diffuse metastasis to liver, adrenal glands, retroperitoneum, bones. 4.Elevated liver enzymes secondary to above. 5.Impaired mobility and activities of daily living. 6.Generalized anxiety disorder. 7.Chronic pain. 8.Neurofibromatosis. 9.Normocytic normochromic anemia. 10.Non-intractable nausea and vomiting. 11.Metabolic acidosis. Hospital Course: Patient is a 63-year-old female with past medical history of breast cancer, who was diagnosed 2 years ago, has been on chemotherapy, unfortunately has been progressing, comes in with g eneralized weakness, cough, and jaundice. Patient was found to have elevated bilirubin at 9 and live r enzymes along with elevated lactate. The patient's condition is significantly deteriorating. [facility] was contacted in the ER by Dr. Yates and they recommended no further treatme nt options for her and recommended hospice care. Family was agreeable to hospice care and therefore she was admitted to the hospital until hospice can be set up and for management of her metabolic acid osis as well as her symptoms of nausea, vomiting, and weakness. The patient's electrolytes were dulce ected. Her acidosis improved with IV fluids. Unfortunately, patient does not have many options in t erms of treatment. The family agreed to hospice. [facility] was [facility] through them. Overall, patient has a very poor prognosis. Patient was discharged home once hospice was set up. Condition: Serious. Medications: As per medication reconciliation list. Diet: Regular. Activity: As tolerated. Physical Examination: General: Awake, alert, and oriented x3. Elderly female, ill-appearing, jaundiced. CV: S1, S2. Respiratory: Moving air well bilaterally. Abdomen: Abdomen is soft, nontender, nondistended. Positive bowel sounds. Extremities: No clubbing, cyanosis, or edema. Neurologic: Nonfocal. Total time spent discharging the patient was 33 minutes. /CORAL Voice ID: [id number] Report ID: [id number]
== END 2019-01-26 13:37 | disposition hospice, home (50) | DRG 948 ==
LOC: ER 19:31 → ERHOLD 23:49 → 2ND 01-25 00:21
PROVIDERS: ADMIT Internal Medicine; ATTEND Internal Medicine
DX: R53.1 Weakness (principal); C78.7 Secondary malignant neoplasm of liver and intrahepatic bile duct; C78.6 Secondary malignant neoplasm of retroperitoneum and peritoneum; C79.70 Secondary malignant neoplasm of unspecified adrenal gland; C79.51 Secondary malignant neoplasm of bone; R17 Unspecified jaundice; E87.2 Acidosis; C50.919 Malignant neoplasm of unspecified site of unspecified female breast; R74.8 Abnormal levels of other serum enzymes; E80.6 Other disorders of bilirubin metabolism; F41.9 Anxiety disorder, unspecified; G89.29 Other chronic pain; Q85.00 Neurofibromatosis, unspecified; D64.9 Anemia, unspecified; R11.2 Nausea with vomiting, unspecified; Z66 Do not resuscitate
CPT/HCPCS: 36415; 70450; 71045; 74176; 80048; 80053; 80076; 82140; 83605; 83690; 83735; 83880; 84100; 84484; 85025; 85610; 86850; 86870; 86900; 86901; 87040; 93005; 96361; 96374; 96375; 99285; J0696; J2405; J7030